=== PATIENT | female | born 1960 | race Caucasian/White ===

== ENCOUNTER 2021-04-16 13:42 | Outpatient (REF) | payer OTHER, SELFPAY ==
--- NOTE | ~2021-04-16 | XR_ITS ---
EXAMINATION: RIGHT AND LEFT ANKLE, RIGHT AND LEFT KNEE. CLINICAL INFORMATION: Pain COMPARISON: None TECHNIQUE: 3. Views of each ankle and 4 views of each knee FINDINGS: Right ankle: There is a large amount of edema seen within the lower leg and ankle. No acute fracture or dislocation is evident. Ankle mortise appears intact. No significant degenerative change. Calcaneal spurs sites of insertion of Achilles and plantar tendons evident. Left ankle: 3 views of the left ankle do not demonstrate any evidence of acute fracture or dislocation. Ankle mortise intact. Joint spaces maintained. Large amount of edema is seen about the lower leg and ankle. Plantar calcaneal spur is noted. Right knee: Views of the right knee do not demonstrate any evidence of acute fracture or dislocation. Joint spaces are maintained. No effusion is seen. There is minimal spurring undersurface of the patella. Left knee: There is no evidence of acute fracture or dislocation of the left knee. No left knee effusion. There is mild narrowing of the medial joint space compartment. XR/XR knee RT 4V IMPRESSION: Edematous change about the right and left lower leg and ankle without underlying bony abnormality. Calcaneal spurs. No significant bony abnormality of the right or left knee appreciated.
--- NOTE | ~2021-04-16 | XR_ITS ---
EXAMINATION: RIGHT AND LEFT ANKLE, RIGHT AND LEFT KNEE. CLINICAL INFORMATION: Pain COMPARISON: None TECHNIQUE: 3. Views of each ankle and 4 views of each knee FINDINGS: Right ankle: There is a large amount of edema seen within the lower leg and ankle. No acute fracture or dislocation is evident. Ankle mortise appears intact. No significant degenerative change. Calcaneal spurs sites of insertion of Achilles and plantar tendons evident. Left ankle: 3 views of the left ankle do not demonstrate any evidence of acute fracture or dislocation. Ankle mortise intact. Joint spaces maintained. Large amount of edema is seen about the lower leg and ankle. Plantar calcaneal spur is noted. Right knee: Views of the right knee do not demonstrate any evidence of acute fracture or dislocation. Joint spaces are maintained. No effusion is seen. There is minimal spurring undersurface of the patella. Left knee: There is no evidence of acute fracture or dislocation of the left knee. No left knee effusion. There is mild narrowing of the medial joint space compartment. XR/XR ankle LT min 3V IMPRESSION: Edematous change about the right and left lower leg and ankle without underlying bony abnormality. Calcaneal spurs. No significant bony abnormality of the right or left knee appreciated.
--- NOTE | ~2021-04-16 | XR_ITS ---
EXAMINATION: RIGHT AND LEFT ANKLE, RIGHT AND LEFT KNEE. CLINICAL INFORMATION: Pain COMPARISON: None TECHNIQUE: 3. Views of each ankle and 4 views of each knee FINDINGS: Right ankle: There is a large amount of edema seen within the lower leg and ankle. No acute fracture or dislocation is evident. Ankle mortise appears intact. No significant degenerative change. Calcaneal spurs sites of insertion of Achilles and plantar tendons evident. Left ankle: 3 views of the left ankle do not demonstrate any evidence of acute fracture or dislocation. Ankle mortise intact. Joint spaces maintained. Large amount of edema is seen about the lower leg and ankle. Plantar calcaneal spur is noted. Right knee: Views of the right knee do not demonstrate any evidence of acute fracture or dislocation. Joint spaces are maintained. No effusion is seen. There is minimal spurring undersurface of the patella. Left knee: There is no evidence of acute fracture or dislocation of the left knee. No left knee effusion. There is mild narrowing of the medial joint space compartment. XR/XR knee LT 4V IMPRESSION: Edematous change about the right and left lower leg and ankle without underlying bony abnormality. Calcaneal spurs. No significant bony abnormality of the right or left knee appreciated.
--- NOTE | ~2021-04-16 | XR_ITS ---
EXAMINATION: RIGHT AND LEFT ANKLE, RIGHT AND LEFT KNEE. CLINICAL INFORMATION: Pain COMPARISON: None TECHNIQUE: 3. Views of each ankle and 4 views of each knee FINDINGS: Right ankle: There is a large amount of edema seen within the lower leg and ankle. No acute fracture or dislocation is evident. Ankle mortise appears intact. No significant degenerative change. Calcaneal spurs sites of insertion of Achilles and plantar tendons evident. Left ankle: 3 views of the left ankle do not demonstrate any evidence of acute fracture or dislocation. Ankle mortise intact. Joint spaces maintained. Large amount of edema is seen about the lower leg and ankle. Plantar calcaneal spur is noted. Right knee: Views of the right knee do not demonstrate any evidence of acute fracture or dislocation. Joint spaces are maintained. No effusion is seen. There is minimal spurring undersurface of the patella. Left knee: There is no evidence of acute fracture or dislocation of the left knee. No left knee effusion. There is mild narrowing of the medial joint space compartment. XR/XR ankle RT min 3V IMPRESSION: Edematous change about the right and left lower leg and ankle without underlying bony abnormality. Calcaneal spurs. No significant bony abnormality of the right or left knee appreciated.
[2021-04-16 15:12] LABS: MANUAL DIFF FLAG NO
[2021-04-16 15:17] LABS: Basophils Absolute Auto 0.1 X10*3/uL (0.0-0.2); Basophils Percent Auto 1.3 % (0-2); Eosinophils Absolute Auto 0.2 X10*3/uL (0.0-0.4); Eosinophils Percent Auto 2.5 % (0-4); Hematocrit 41.7 % (37-47); Hemoglobin 13.7 g/dl (12.0-16.0); Imm Gran Abs Auto 0.04 X10*3/uL (0.00-0.03); Imm Gran Pct Auto 0.6 % (0.0-0.4); Lymphocytes Percent Auto 42.6 % (20-40); Mean Corpuscular HGB Conc 32.9 g/dl (31.0-35.0); Mean Corpuscular Hemoglobin 29.8 pg (27.0-33.0); Mean Corpuscular Volume 90.7 fL (80-98); Mean Platelet Volume 8.3 fL (9.4-12.3); Monocytes Absolute Auto 0.6 X10*3/uL (0.1-1.2); Monocytes Percent Auto 8.5 % (2-11); Neutrophils Absolute Auto 3.1 X10*3/uL (2.0-8.3); Neutrophils Percent Auto 44.5 % (45-73); Platelet Count 372 X10*3/uL (160-400); Red Cell Distribution Width 14.8 % (11.0-16.0); White Blood Count 6.9 X10*3/uL (4.8-10.8)
[2021-04-16 15:49] LABS: Alanine Aminotransferase 35 U/L (0-31); Albumin Level 4.2 g/dL (3.5-5.0); Alkaline Phosphatase 66 U/L (39-117); Anion Gap 12 (12-20); Aspartate Amino Transferase 27 U/L (5-31); Bilirubin Total 0.5 mg/dL (0.0-1.0); Blood Urea Nitrogen 20 mg/dL (9-16); C Reactive Protein 1.89 mg/dL (< or = 0.50); Calcium 10.3 mg/dL (8.4-10.2); Carbon Dioxide 29 mmol/L (22-29); Chloride 101 mmol/L (96-108); Estimated Glomerular Filt Rate > 60; Glucose Random 106 mg/dL (60-115); Potassium 3.9 mmol/L (3.3-5.1); Sodium 138 mmol/L (135-145); Total Protein 7.4 g/dL (6.5-8.0)
[2021-04-16 15:59] LABS: Rheumatoid Factor < 15.0 IU/mL (<15.0)
[2021-04-16 16:04] LABS: Erythrocyte Sedimentation Rate 14 MM/HR (0-20)
[2021-04-16 16:08] LABS: Thyroid Stimulating Hormone 1.21 uIU/mL (0.32-4.0)
[2021-04-17 13:32] LABS: Antibody to SS-A Antigen <1.0 NEG AI (<1.0 NEG); Antibody to SS-B Antigen <1.0 NEG AI (<1.0 NEG)
[2021-04-19 22:57] LABS: Cyclic Citrullinated Peptide <16 UNITS
[2021-04-26 12:26] LABS: Vitamin D 25-OH, D2 9 ng/mL; Vitamin D 25-OH, D3 22 ng/mL; Vitamin D 25-OH, Total 31 ng/mL (30-100)
== END 2021-04-16 13:43 | disposition home or self-care (01) ==
LOC: HO.XRAY 13:42
PROVIDERS: PCP Internal Medicine; Visit Provider Student in an Organized Health Care Education/Training Program
DX: M25.50 Pain in unspecified joint (principal)
CPT/HCPCS: 36415; 73564; 73610; 80053; 82306; 84443; 85025; 85652; 86140; 86200; 86235; 86431; 99202

== ENCOUNTER → 2021-05-29 09:12 | Outpatient (BNVA) | payer OTHER, SELFPAY | PROVIDERS: PCP Internal Medicine; Visit Provider Student in an Organized Health Care Education/Training Program | DX: M25.50 Pain in unspecified joint (principal); M77.31 Calcaneal spur, right foot; M77.32 Calcaneal spur, left foot | CPT/HCPCS: 99212 ==

== ENCOUNTER → 2021-05-30 11:10 | Outpatient (BNVA) | payer OTHER, SELFPAY | PROVIDERS: PCP Internal Medicine; Visit Provider Surgery Vascular Surgery | DX: I83.11 Varicose veins of right lower extremity with inflammation (principal) | CPT/HCPCS: 99202 ==

== ENCOUNTER 2021-06-24 10:37 | Outpatient (REF) | payer OTHER, SELFPAY ==
--- NOTE | ~2021-06-24 | US_ITS ---
EXAMINATION: EXAMINATION: RIGHT and LEFT LOWER EXTREMITY VENOUS ULTRASOUND (Reflux Exam) CLINICAL INDICATION: leg pain and varicose veins. COMPARISON: None. TECHNIQUE: Color flow triplex imaging and compression Doppler was performed to evaluate both the deep and the superficial systems bilaterally. To evaluate the superficial system, the examination was performed in the upright position. Color-flow Doppler ultrasound and compression ultrasound were utilized. In addition, maneuvers were utilized to demonstrate reflux. FINDINGS: 1. DEEP VENOUS ULTRASOUND OF THE RIGHT LOWER EXTREMITY: Respiratory variation, normal compression and augmented flow are noted in the right common femoral vein as well as the right popliteal vein and there is no evidence of deep venous thrombosis at these locations. There is no evidence of reflux in the deep system in either the common femoral vein or the popliteal vein. There is no evidence of a Ball's cyst. 2. SUPERFICIAL ULTRASOUND WITH DOPPLER OF RIGHT LOWER EXTREMITY: The right great saphenous vein at the saphenofemoral junction measures 6 mm, at the mid thigh 3 mm, [id number]-[id number] 3 mm, nphyf-lsw-anle 2 mm, at mid calf 2 mm and at the ankle measures 2 mm. There is 3.1 seconds reflux below the knee. The right small saphenous vein measures 2 mm and shows no reflux. There is a artificial snow making machine operator in the proximal calf that measures 2 mm and does not demonstrate reflux. There is a varicosity in the proximal thigh that measures 3 mm and does not demonstrate reflux. 3. DEEP VENOUS ULTRASOUND OF THE LEFT LOWER EXTREMITY: Respiratory variation, normal compression and augmented flow are noted in the left common femoral vein as well as the left popliteal vein and there is no evidence of deep venous thrombosis at these locations. There is no evidence of reflux in the deep system in either the common femoral vein or the popliteal vein. . There is no evidence of a Ball's cyst. 4. SUPERFICIAL ULTRASOUND WITH DOPPLER OF LEFT LOWER EXTREMITY: Left great saphenous vein at the saphenofemoral junction measures 5 mm, at the mid thigh 4 mm, vzxnl-yls-[id number] 3 mm, zeyqf-nru-ldfl 2 mm, at mid calf and 1 mm and at the ankle measures 1 mm. There is no reflux demonstrated in the left great saphenous vein. The left small saphenous vein is not seen. There is a artificial snow making machine operator in the proximal calf that measures 2 mm and does not demonstrate reflux. US/US venous duplex LE BI IMPRESSION: 1. No evidence of reflux or thrombus in the common femoral veins or popliteal veins bilaterally. 2. 3.1 seconds right greater saphenous vein reflux below the knee. No left greater saphenous vein reflux.
== END 2021-06-24 10:38 | disposition home or self-care (01) ==
LOC: HO.US 10:37
PROVIDERS: Visit Provider Surgery Vascular Surgery
DX: I83.11 Varicose veins of right lower extremity with inflammation (principal); I83.893 Varicose veins of bilateral lower extremities with other complications
CPT/HCPCS: 93970

== ENCOUNTER → 2021-06-27 15:16 | Outpatient (BNVA) | payer OTHER, SELFPAY | PROVIDERS: PCP Internal Medicine; Referring Provider Internal Medicine; Visit Provider Surgery Vascular Surgery | DX: I83.11 Varicose veins of right lower extremity with inflammation (principal) | CPT/HCPCS: 99212 ==

== ENCOUNTER 2021-07-18 11:57 | Emergency (ER) | payer OTHER, SELFPAY ==
[2021-07-18 11:59] VITALS: BP 110/74; PULSE 81; RESP 16; TEMP 36.9; O2SAT 98; BMI 38.7
--- NOTE | 2021-07-18 12:22 | ED_ITS ---
HPI - Female Genitourinary General Chief complaint: Urogenital-Female Stated complaint: blood in urine Time Seen by Provider: 07/18/21 12:05 Source: patient Mode of arrival: ambulatory Limitations: no limitations History of Present Illness HPI Narrative: 61 y/o female presenting with acute onset of blood in her urine and suprapubic pain that started today when she woke up. She has never had bloody urine before. She has no N/V/D, no fevers or flank pain. She reports burning and pain with urination. MD elicited complaint: dysuria and other (hematuria) Onset (ago): hour(s) Location of symptoms: suprapubic and urethra Severity: moderate Female Urogenital Radiation: Non-Radiating Quality of pain: burning Consistency: intermittent Vaginal discharge: none Vaginal bleeding: none Urinary symptoms: Dysuria and Hematuria Exacerbating factors: urination Relieving factors: none Associated symptoms: denies other symptoms Treatment prior to arrival: none Sexual activity: No Related Data Home Medications Medication Instructions Recorded Confirmed lisinopril 10 mg tablet 10 mg PO DAILY 04/16/21 05/29/21 chlorthalidone 25 mg tablet 25 mg PO DAILY 05/29/21 05/29/21 Previous Rx's Medication Instructions Recorded cefuroxime axetil 250 mg tablet 250 mg PO BID 7 Days #14 tab 07/18/21 Allergies Allergy/AdvReac Type Severity Reaction Status Date / Time No Known Allergies Allergy Verified 06/27/21 15:30 Review of Systems Constitutional: Constitutional: Denies body ache(s), Denies chills and Denies fever(s) Eyes: Eyes: Reports no additional eye complaints ENT: Reports Normal hearing present Cardiovascular: Cardiovascular: Denies chest pain Respiratory: Respiratory: Denies cough Gastrointestinal: Gastrointestinal: Reports abdominal pain, Denies nausea and Denies vomiting Genitourinary: Genitourinary: Denies abnormal vaginal bleeding, Reports hematuria, Reports dysuria, Denies flank pain and Reports urinary urgency Musculoskeletal: Musculoskeletal: Denies back pain Integumentary/Breasts: Skin/Breast: Denies rash Neurologic: Reports Normal hearing present [facility] Past Medical History Medical History Cataract fragments in eye following surgery HTN (hypertension) Migraine Osteoarthritis Surgical History Hx of section Hx of cholecystectomy Hx of tubal ligation Family History Family History Mother Diabetes Father Stroke Brother Diabetes Asthma Social History Social History Alcohol intake: never Patient Tobacco Use Status: Never used Tobacco Years Smoked: 10 e-Cigarette/Vaping Use: Never Used Advance Directives: No Advance Directives Information Provided: No Physical Exam Vital Signs: Vital Signs: Last Vital Signs Temp 98.4 F 07/18/21 11:59 Pulse 81 07/18/21 11:59 Resp 16 07/18/21 11:59 BP 110/74 07/18/21 11:59 Pulse Ox 98 07/18/21 11:59 Body Mass Index 38.7 Const: General: cooperative, healthy appearing, comfortable and no acute distress Nutritional Appearance: average body habitus Orientation/consciousness: patient oriented x3 Limitations: no limitations HENMT: Head: Yes normal to inspection Ears: hearing grossly normal bilaterally General nose exam: Normal external nose present Face and sinus: Yes normal facial exam and Yes face symmetric Mouth: Normal oral and palatal mucosa present, lip normal and tongue normal Eyes: General: appearance normal, both eyes and all related structures Neck: Neck: Yes normal visual inspection Chest: Chest palpation & inspection: normal inspection of the chest Resp: Effort & Inspection: normal respiratory effort and able to speak in complete sentences Auscultation: clear to auscultation bilaterally Cardio: Rate: regular rate Rhythm: regular rhythm Heart sounds: S1 normal heart sound present and S2 normal heart sound present GI: Inspection: Yes obesity Palpation (GI): Soft to palpation and Tenderness to palpation present (GI) suprapubicly (mild) Auscultation: normal bowel sounds : Other: pelvic deferred Skin: General skin exam: no rashes or lesions noted Neuro: General: patient oriented x3 and gait normal Cranial nerves: Yes Normal hearing present Extrem: General: Yes normal to inspection, Yes no pedal edema and Yes no calf tenderness Psych: Appearance: grossly normal and well kempt Mental Status: mental status grossly normal Speech and movement: Normal speech and movement present Course Course Course Narrative: 61 y/o female presenting with hematuria and suprapubic discomfort that started today. Her clinical presentation is consistent with UTI. No flank pain or systemic signs of infection. VS are normal. UA pending. Reevaluation(s) Reevaluation #1: UA is positive for infection. 1st dose of ceftin given here and then sent to pharmacy. Stable for d/c home with abx and outpatient follow up. MDM - Female Genitourinary Lab Data Labs: Lab Results 07/18/21 Range/Units 12:42 Urine Color PINK Urine Appearance CLOUDY Urine pH 7.0 (5.0-8.0) Ur Specific [place] 1.015 (1.005-1.025) Urine Protein 1+ H (NEG-TRACE) MG/DL Urine Glucose (UA) NEG (NEG) MG/DL Urine Ketones NEG (NEG) MG/DL Urine Blood 3+ H (NEG) Urine Nitrite NEG (NEG) Ur Leukocyte Esterase 1+ H (NEG) Urine RBC 76-150 H (0) /HPF Urine WBC 76-150 H (0-4) /HPF Ur Squamous Epith Cells TRACE /LPF Urine Bacteria 3+ /LPF Discharge Plan Discharge Clinical Impression: UTI (urinary tract infection) Qualifiers: Urinary tract infection type: acute cystitis Hematuria presence: with hematuria Qualified Code(s): N30.01 - Acute cystitis with hematuria Patient Disposition: Home, Self-Care Instructions: Urinary Tract Infection in Women (ED), Hematuria (ED) Additional Instructions: Your urine test showed infection. Take the prescribed antibiotic as directed. Start taking it tonight, you were given 1st dose today in the ER. Follow up with your doctor as needed. If you develop new or worsening symptoms call 911 or come back to the ER for further evaluation. Prescriptions: New cefuroxime axetil 250 mg tablet 250 mg PO BID 7 Days Qty: 14 RF: 0 No Action lisinopril 10 mg tablet 10 mg PO DAILY RF: 0 chlorthalidone 25 mg tablet 25 mg PO DAILY RF: 0 Referrals: Misty Ornelas MD [Primary Care Provider] - 1 week Interventions: ED Discharge Assessment Last Done: 07/18/21 13:45 Discharge Date/Time: 07/18/21 13:45
[2021-07-18 13:00] LABS: Glucose Urine UA NEG (NEG); Leukocyte Esterase Urine 1+ (NEG); Nitrite Urine NEG (NEG); Specific Gravity - Urine 1.015 (1.005-1.025); UACC Culture Trigger YES; Urine Blood 3+ (NEG); Urine Ketones NEG (NEG); Urine Protein 1+ MG/DL (NEG-TRACE)
[2021-07-18 13:08] LABS: Appearance Urine CLOUDY; Color Urine PINK
[2021-07-18 13:18] LABS: Bacteria Urine 3+ /LPF; Squamous Epithelial Cell Urine TRACE /LPF
== END 2021-07-18 13:45 | disposition home or self-care (01) ==
PROVIDERS: Physician Assistant; Emergency Provider Emergency Medicine; PCP Internal Medicine
DX: N30.01 Acute cystitis with hematuria (principal); I10 Essential (primary) hypertension
CPT/HCPCS: 81001; 81003; 87086; 87088; 87186; 99283; 99284

== ENCOUNTER 2022-01-15 12:30 | Outpatient (REF) | payer OTHER, SELFPAY ==
--- NOTE | ~2022-01-15 | MM_ITS ---
EXAMINATION: MM SCREENING DIGITAL BREAST TOMOSYNTHESIS, BILATERAL CLINICAL INFORMATION: Screening. Asymptomatic. The lifetime risk of breast cancer based on the Tyrer-Cuzick Model is 5.8%. COMPARISON: Mammography: November 25, 2017 and studies dating back to 2009 TECHNIQUE: Digital breast tomosynthesis is performed in both the craniocaudal and mediolateral oblique views along with computer-aided detection (CAD). Synthesized 2D images are generated from the tomosynthesis. FINDINGS: The breasts are almost entirely fatty (ACR BI-RADS breast composition Category a). There is stable parenchymal pattern of the right breast with no new abnormal dominant mass or suspicious grouping of microcalcifications. Within the anterior superior aspect of the left breast approximately 4 cm from the nipple there is a new 4 x 3 mm circumscribed density for which ultrasound evaluation is recommended. MM/MM tomosynthesis screening BI IMPRESSION: New right breast density for ultrasound evaluation. ASSESSMENT: BI-RADS 0: Incomplete - Need Additional Imaging Evaluation RECOMMENDATION: Targeted left breast ultrasound. Radiology department staff will contact the patient for additional imaging. .
== END 2022-01-15 12:31 | disposition home or self-care (01) ==
LOC: HO.MAMMO 12:30
PROVIDERS: PCP Internal Medicine; Visit Provider Internal Medicine
DX: Z12.31 Encounter for screening mammogram for malignant neoplasm of breast (principal)
CPT/HCPCS: 77063; 77067

== ENCOUNTER 2022-02-03 12:49 | Outpatient (REF) | payer OTHER, SELFPAY ==
--- NOTE | ~2022-02-03 | US_ITS ---
EXAMINATION: US DIAGNOSTIC ULTRASOUND BREAST, LEFT CLINICAL INFORMATION: Recall from screening for low-attenuation circumscribed nodule anterior 12:00 left breast under 5 mm. COMPARISON: Mammography 01/15/2022, outside mammography 11/25/2017 ([facility]). TECHNIQUE: Ultrasound left breast is targeted to the upper breast using grayscale imaging and color Doppler without and with harmonics. FINDINGS: Ultrasound demonstrates no cystic or suspicious solid nodule. There is no focal duct ectasia. No focal architectural abnormality. There is a subtle oval hyperechoic area 12:00 position anterior breast measuring just under 4 mm likely corresponding to the low-attenuation circumscribed nodule on mammography. There is no increased or decreased through transmission of sound. Finding appears to represent sequela from prior injury, likely focus of fat necrosis or early oil cyst. Results are discussed with the patient at time of visit, using an glost tile sorter. Patient does not recall prior injury left breast. The finding is benign-appearing likely focus of fat necrosis or early oil cyst. Management plan is for short interval six-month follow-up left mammography. Targeted ultrasound may be performed at same visit if warranted. US/US breast LT limited IMPRESSION: Subtle oval hyperechoic focus 12:00 position anterior breast likely corresponding to the low attenuation circumscribed nodule on mammography, suspicious for fat necrosis or early oil cyst. ASSESSMENT: BI-RADS 3: Probably Benign RECOMMENDATION: Diagnostic left mammography in 6 months. This patient's information was entered into a reminder system with a target due date for their next mammogram.
== END 2022-02-03 12:50 | disposition home or self-care (01) ==
LOC: HO.MAMMO 12:49
PROVIDERS: PCP Internal Medicine; Visit Provider Internal Medicine
DX: R92.2 Inconclusive mammogram (principal)
CPT/HCPCS: 76642

== ENCOUNTER 2022-09-30 08:57 | Outpatient (REF) | payer OTHER, SELFPAY ==
--- NOTE | ~2022-09-30 | MM_ITS ---
EXAMINATION: MM DIAGNOSTIC DIGITAL BREAST TOMOSYNTHESIS, BILATERAL CLINICAL INFORMATION: Asymptomatic. Follow-up small nodule anterior 12:30 left breast, likely oil cyst/fat necrosis. COMPARISON: Mammography: 01/15/2022, outside mammography 11/25/2017 ([facility]), left breast ultrasound 02/03/2022 TECHNIQUE: Digital breast tomosynthesis is performed in both the craniocaudal and mediolateral oblique views along with computer-aided detection (CAD). Synthesized 2D images are generated from the tomosynthesis. FINDINGS: The breasts are almost entirely fatty (ACR BI-RADS breast composition Category a). There are no significant masses, abnormal calcifications, or other abnormalities. Background stromal markings are stable. Small circumscribed nodule anterior left breast likely coil cyst/fat necrosis is stable. They will be reassessed again in 6 months. The remainder of the breasts show no developing density or architectural abnormality. No abnormal calcifications. The axilla are unremarkable. Results are provided to the patient at time of visit by the technologist. MM/MM tomosynthesis diagnostic BI IMPRESSION: -No mammographic evidence of malignancy. -Small benign-appearing nodule anterior 12:30 left breast likely oil cyst/fat necrosis, stable. ASSESSMENT: BI-RADS 3: Probably Benign RECOMMENDATION: Diagnostic left mammography in 6 months. This patient's information was entered into a reminder system with a target due date for their next mammogram.
== END 2022-09-30 08:58 | disposition home or self-care (01) ==
LOC: HO.MAMMO 08:57
PROVIDERS: Visit Provider Internal Medicine
DX: R92.2 Inconclusive mammogram (principal)
CPT/HCPCS: 77062; 77066

== ENCOUNTER → 2023-03-31 12:44 | Outpatient (BNV) | payer OTHER, SELFPAY | PROVIDERS: PCP Internal Medicine; Visit Provider Internal Medicine | DX: C92.10 Chronic myeloid leukemia, BCR/ABL-positive, not having achieved remission (principal); D64.9 Anemia, unspecified | CPT/HCPCS: 99204; 99214; 99215; G2211 ==

== ENCOUNTER 2023-04-01 15:15 | Outpatient (REF) | payer OTHER, SELFPAY ==
--- NOTE | ~2023-04-01 | MM_ITS ---
EXAMINATION: MM DIAGNOSTIC DIGITAL BREAST TOMOSYNTHESIS, LEFT CLINICAL INFORMATION: Short interval follow-up benign-appearing circumscribed nodule anterior 12:30 o'clock left breast, likely oil cyst/fat necrosis. TC score 6%. COMPARISON: Mammography: 09/30/2022, 01/15/2022 (BI-RADS 0), left breast ultrasound 02/03/2022; outside mammography 11/25/2017 ([facility] TECHNIQUE: Digital breast tomosynthesis is performed in both the craniocaudal and mediolateral oblique views along with computer-aided detection (CAD). Synthesized 2D images are generated from the tomosynthesis. FINDINGS: The breasts are almost entirely fatty (ACR BI-RADS breast composition Category a). The small circumscribed nodule anterior 12:30 left breast just under 5 mm appears stable from prior study. There is a benign punctate calcification at the rim. There is no developing density or interval architectural abnormality. The remainder left breast is unremarkable. Results are provided to the patient at time of visit by the technologist. The benign-appearing nodule will be reassessed again at time of annual bilateral mammography, due in 6 months. MM/MM tomosynthesis diagnostic LT IMPRESSION: -Stable small benign-appearing nodule anterior 12:30 left breast likely oil cyst/fat necrosis. ASSESSMENT: BI-RADS 3: Probably Benign RECOMMENDATION: Diagnostic mammography at time of annual bilateral exam, due in 6 months. This patient's information was entered into a reminder system with a target due date for their next mammogram.
== END 2023-04-01 15:16 | disposition home or self-care (01) ==
LOC: HO.MAMMO 15:15
PROVIDERS: PCP Internal Medicine; Visit Provider Internal Medicine
DX: N63.25 Unspecified lump in the left breast, overlapping quadrants (principal)
CPT/HCPCS: 77061; 77065

== ENCOUNTER 2023-04-15 09:09 | Outpatient (REF) | payer OTHER, SELFPAY ==
--- NOTE | ~2023-04-15 | US_ITS ---
EXAMINATION: US ABDOMEN COMPLETE CLINICAL INFORMATION: Question hepatosplenomegaly. COMPARISON: Ultrasound abdomen complete 04/30/2020. TECHNIQUE: Real-time imaging of the abdominal viscera. FINDINGS: PANCREAS: The pancreas appears unremarkable, without masses or ductal dilatation, with the exception of the tail which is obscured by bowel gas. ABDOMINAL AORTA: The proximal, mid, and distal segments are normal in caliber. INFERIOR VENA CAVA: Visualized portions are normal. LIVER: The liver is normal in size. The liver contour is normal. There is diffuse increased liver parenchymal echogenicity, consistent with hepatic steatosis. No focal hepatic lesion. There is no intrahepatic biliary duct dilatation seen. GALLBLADDER: Surgically absent. COMMON BILE DUCT: Normal in caliber measuring 1.4 cm in diameter. RIGHT KIDNEY: A 1.1 cm benign renal cyst is present which needs no additional imaging or follow-up. No solid renal masses. No hydronephrosis or renal calculi. The kidney measures 11.4 cm in maximum dimension. LEFT KIDNEY: Normal. No hydronephrosis. No renal calculi or focal parenchymal lesions. The kidney measures 10.5 cm in maximum dimension. SPLEEN: Normal. The spleen measures 9.0 cm in maximum dimension. FREE FLUID: None. US/US abdomen complete IMPRESSION: Hepatic steatosis.
== END 2023-04-15 09:10 | disposition home or self-care (01) ==
LOC: HO.US 09:09
PROVIDERS: PCP Internal Medicine; Visit Provider Internal Medicine
DX: D75.839 Thrombocytosis, unspecified (principal)
CPT/HCPCS: 36415; 76700; 88374

== ENCOUNTER 2023-04-29 09:34 | Outpatient (REF) | payer OTHER, SELFPAY | END 2023-04-29 09:35 | disposition home or self-care (01) | LOC: HO.LAB 09:34 | PROVIDERS: PCP Internal Medicine; Visit Provider Internal Medicine | DX: Z13.89 Encounter for screening for other disorder (principal) ==

== ENCOUNTER 2023-05-21 09:38 | Day surgery (SDC) | payer OTHER, SELFPAY ==
[2023-05-21] VITALS (8 sets, daily range): BP systolic 133–175; BP diastolic 71–82; PULSE 63–76; RESP 14–19; TEMP 36.1–36.8; O2SAT 96–98; BMI 38.6
--- NOTE | ~2023-05-21 | CT_ITS ---
PROCEDURE: CT GUIDED BIOPSY CLINICAL INFORMATION: CML. COMPARISON: None available. TECHNIQUE: Following explaining CT-guided iliac crest bone marrow biopsy procedure, benefits and risk via a nail professional a written consent was obtained. Patient was placed prone and preliminary CT imaging was obtained through pelvis. Marker was placed about the left buttock and repeat CT imaging was obtained. An optimal marker was selected and marked on the skin. Marked site was cleaned in usual sterile manner with 2% chlorhexidine solution. 1% lidocaine was administered at puncture site. Through a small skin incision a 14-gauge needle was advanced from the skin to the level of periosteum of the left iliac crest. A mechanical drill was then attached to the needle and the needle was advanced into the bone marrow. Two needles with EDTA and heparin was attached to the syringe and blood was aspirated. Subsequently a coaxial 16-gauge needle was advanced and a bone marrow core biopsy was performed. Postprocedure stylet was reintroduced and the guide needle was withdrawn. Complete hemostasis was achieved at puncture site. Patient tolerated procedure extremely well. Conscious sedation was utilized during the exam and patient was monitored by IR nurse. This CT examination was performed using dose optimization techniques as appropriate, variously including the following: *Automated exposure control *Adjustment of mA and/or kV according to patient size (this includes techniques or standardized protocols for targeted exams where dose is matched to indication/reason for exam; i.e. extremities or head) *Use of iterative reconstruction technique DLP: 254 mGy-cm FINDINGS: On preliminary CT imaging of the pelvis there is scattered stool seen in the colon without significant distention. The uterus appears unremarkable. No free air or free fluid seen. The soft tissues are unremarkable. CT-guided 2 bone marrow aspirations with EDTA and heparin in syringe were obtained. Subsequently a single core biopsy was performed coaxially. CT/CT biopsy bone marrow IMPRESSION: Successful CT fluoroscopy-guided bone marrow aspiration and core biopsy performed through the left iliac bone marrow.
[2023-05-21 10:12] LABS: Hematocrit 40.3 % (37.0-47.0); Hemoglobin 13.3 g/dl (12.0-16.0); Mean Corpuscular Hemoglobin 28.2 pg (27.0-33.0); Mean Corpuscular Volume 85.4 fL (80.0-98.0); Mean Platelet Volume 8.6 fL (9.4-12.3); Platelet Count 792 X10*3/uL (160-400); Red Blood Count 4.72 X10*6/uL (4.20-5.50); Red Cell Distribution Width 17.2 % (11.0-16.0)
[2023-05-21 10:17] LABS: Prothrombin Time 11.3 SEC (10.0-13.1)
[2023-05-21 10:19] LABS: Partial Thromboplastin Time 31.9 SEC (26.0-36.4)
[2023-05-21 10:36] LABS: Atypical Lymph Absolute Manual 0.2 x10*3/uL; Atypical Lymphs Percent Manual 1 % (0-6); Band Neutrophils Percent 5 % (3-5); Basophils Abs Manual 1.1 X10*3/uL (0.0-0.2); Basophils Percent Manual 6 % (0-2); Eosinophils Absolute Manual 0.8 X10*3/uL (0.0-0.4); Eosinophils Percent Manual 4 % (0-4); Lymphocytes Absolute Manual 3.4 X10*3/uL (1.2-4.9); Lymphocytes Percent Manual 18 % (20-40); Metamyelocytes Absolute 0.8 X10*3/uL; Metamyelocytes Percent 4 %; Monocytes Absolute Manual 0.8 X10*3/uL (0.1-1.2); Monocytes Percent Manual 4 % (2-11); Neutrophils Percent Manual 58 % (45-73); Platelet Estimate INCREASED (NORMAL); Platelet Morphology Comment NORMAL; RBC Morphology NORMAL
[2023-05-21 12:22] LABS: Bone Marrow SEE SEPARATE REPORT
== END 2023-05-21 14:08 | disposition home or self-care (01) ==
PROVIDERS: Radiology Diagnostic Radiology; PCP Internal Medicine; Visit Provider Internal Medicine
PROC: (CPT 38221; principal; 2023-05-21 11:30)
DX: C92.10 Chronic myeloid leukemia, BCR/ABL-positive, not having achieved remission (principal)
CPT/HCPCS: 36415; 38221; 38222; 85007; 85027; 85610; 85730; 88184; 88185; 88237; 88264; 88305; 88311; 88313; 99152; 99153; J1642; J2250; J3010

== ENCOUNTER → 2023-06-08 14:53 | Outpatient (BNV) | payer OTHER, SELFPAY | PROVIDERS: PCP Internal Medicine; Visit Provider Internal Medicine Cardiovascular Disease | DX: Z51.11 Encounter for antineoplastic chemotherapy (principal) | CPT/HCPCS: 93010 ==

== ENCOUNTER → 2023-07-21 08:53 | Outpatient (REF) | payer OTHER, SELFPAY ==
--- NOTE | 2023-07-21 08:56 | CA_ITS ---
Transthoracic Echocardiogram Patient (Last, First, Middle): Emiliana Pedraza, Gender: Female Date of : 1960 Age: 63 Procedure Date: 07/21/2023 Procedure Type: Transthoracic Echocardiogram Location: OP Height: 165.1 cm Weight: 107.05 kg BSA: 2.12 m2 Heart Rate: bpm BP: 135 / 70 mmHg Animal Care Supervisor: DIYA Referring MD: Jannette Pérez MD Symptoms: pre-chemo eval Study Quality: Adequate ECG Rhythm: Sinus Conclusions: - The left ventricular systolic function is normal. The calculated ejection fraction is 68% by biplane method. - No obvious valvular pathology seen on this study. Findings Left Ventricle Normal left ventricular cavity size. There is normal left ventricular wall thickness. The left ventricular systolic function is normal. The calculated ejection fraction is 68% by biplane method. There is no evidence of regional wall motion abnormalities. Diastolic function is normal for age. Right Ventricle Normal right ventricular cavity size and systolic function. Atria Both atria are normal in size. Aortic Valve There is a normal trileaflet aortic valve. There is no aortic valve stenosis. There is no aortic valve regurgitation. Mitral Valve The mitral valve appears normal. There is trace mitral valve regurgitation. There is no mitral valve stenosis. Pulmonic Valve The pulmonic valve is likely normal. Tricuspid Valve Normal tricuspid valve structure. There is trace tricuspid valve regurgitation. There is no evidence of pulmonary hypertension. Great Vessels The asc aorta is normal in size. Venous The inferior vena cava is normal in size and collapses greater than 50% with inspiration. Pericardium/Pleural There is no evidence of pericardial effusion. Prior Study Comparison No prior study available for comparison. Recommendations, Care & Conclusions No obvious valvular pathology seen on this study. Measurements 2D Linear Measurements IVSd: 1.06 0.6-0.9/0.6-1.0 cm LVIDd: 4.54 3.9-5.3/4.2-5.9 cm LVIDd Index: 2.14 2.4-3.2/2.2-3.1 cm/m2 LVIDs: 2.33 2.0-3.6 cm LVPWd: 0.94 0.7-1.1 cm LA Diam: 2.90 2.7-3.8/3.0-4.0 cm LAIDs Index: 1.37 1.5-2.3 cm/m2 LV Mass: 193.20 67-162/88-224 g LV Mass Index: 91.13 43-95/49-115 g/m2 LVOT Diam: 1.80 3.0+(-)1.3 cm 2D Systolic Function EF 4C: 68.30 >55% EF 2C: 63.80 >55% EF BiP: 67.50 >55% Mitral Valve MV Pk E: 1.02 MV PK A: 0.94 MV Decel Time: 232.00 E/A: 1.10 E'Lateral: 9.68 E'Medial: 8.81 E/E' Med: 11.60 E/E' Lat: 10.50 PHT: 68.00 MVA PHT: 3.24 Decel [place]: 4.37 Aortic Valve AoV Pk [place]: 1.83 AoV Mn [place]: 1.24 AoV VTI: 0.37 AoV Pk Grad: 13.00 Aov Mn Grad: 7.00 SOHA Cont.VTI: 2.22 LVOT LVOT Pk [place]: 1.45 LVOT Mn [place]: 1.01 LVOT VTI: 0.32 LVOT Pk Grad: 8.00 LVOT Mn Grad: 5.00 LVOT Diam: 1.80 LVOT Area: 2.54 Diastolic Function MV Pk E: 1.02 MV Pk A: 0.94 E/A: 1.10 E'Medial: 8.81 E/E' Med: 11.60 E' Laterial: 9.68 E/E' Lat: 10.50 Right Ventricle TAPSE (mm): 22.60 TVS' [place]: 12.30 Tricuspid Valve TR Pk [place]: 2.57 TR Pk Grad: 26.00 RA Press: 3.00 RVSP: 29.00 Great Vessels Aorta Sinus of Valsalva: 3.30 2.0-3.5 cm Ao Asc: 3.20 2.1-3.4 cm Pulmonary Valve PV Pk [place]: 1.28 Peak PV Grad: 7.00 Updated in Other Vendor System with Status of Final Endy Swan MD electronically signed on 07/21/2023 2:58:31 PM with status of Final
== END ==
LOC: HO.CARD 08:53
PROVIDERS: Visit Provider Internal Medicine
DX: C92.10 Chronic myeloid leukemia, BCR/ABL-positive, not having achieved remission (principal)
CPT/HCPCS: 93306

== ENCOUNTER → 2023-07-21 08:56 | Outpatient (BNV) | payer OTHER, SELFPAY | PROVIDERS: Visit Provider Internal Medicine | DX: Z01.818 Encounter for other preprocedural examination (principal); C92.10 Chronic myeloid leukemia, BCR/ABL-positive, not having achieved remission | CPT/HCPCS: 93306 ==

== ENCOUNTER 2023-08-18 10:47 | Outpatient (REF) | payer OTHER, SELFPAY | END 2023-08-18 10:48 | disposition home or self-care (01) | LOC: HO.LAB 10:47 | PROVIDERS: Visit Provider Internal Medicine | DX: R19.7 Diarrhea, unspecified (principal) | CPT/HCPCS: 87177; 87209 ==

== ENCOUNTER → 2023-09-23 10:37 | Outpatient (BNVA) | payer OTHER, SELFPAY | PROVIDERS: Visit Provider Nurse Practitioner ==

== ENCOUNTER 2023-10-07 09:23 | Outpatient (REF) | payer OTHER, SELFPAY ==
--- NOTE | ~2023-10-07 | MM_ITS ---
EXAMINATION: MM DIAGNOSTIC DIGITAL BREAST TOMOSYNTHESIS, BILATERAL CLINICAL INFORMATION: The patient presents for recommended short interval follow-up of a left breast focal asymmetry and screening mammography of the right breast. COMPARISON: Mammography: This study is compared with prior mammograms dating back to 2018. TECHNIQUE: Digital breast tomosynthesis is performed in both the craniocaudal and mediolateral oblique views along with computer-aided detection (CAD). Synthesized 2D images are generated from the tomosynthesis. FINDINGS: The breasts are almost entirely fatty (ACR BI-RADS breast composition Category a). There are no significant masses, abnormal calcifications, or other abnormalities either breast. The previously noted area of upper outer quadrant focal asymmetry represents a small intramammary lymph node. There is no calcification associated with it. There is possible for calcifications to dissolve in the breast. Nonetheless, there are no mammographic signs of malignancy. MM/MM tomosynthesis diagnostic BI IMPRESSION: There are no significant changes from prior study. ASSESSMENT: BI-RADS BI-RADS 1 - Negative RECOMMENDATION: 1 year F/U Results were provided to the patient at time of visit by the technologist. This patient's information was entered into a reminder system with a target due date for their next mammogram.
== END 2023-10-07 09:24 | disposition home or self-care (01) ==
LOC: HO.MAMMO 09:23
PROVIDERS: PCP Internal Medicine; Visit Provider Internal Medicine
DX: N64.89 Other specified disorders of breast (principal)
CPT/HCPCS: 77062; 77066

== ENCOUNTER → 2023-10-07 09:30 | Outpatient (BNV) | payer OTHER, SELFPAY | PROVIDERS: PCP Internal Medicine; Visit Provider Radiology Diagnostic Radiology | DX: N64.89 Other specified disorders of breast (principal) | CPT/HCPCS: 77062; 77066 ==

== ENCOUNTER 2023-10-27 12:59 | Outpatient (AMB) | payer OTHER, SELFPAY ==
--- NOTE | 2023-10-27 13:03 | A.OFFVIS_ITS ---
Intake Vital Signs 10/27/23 13:04 Height 5 ft 5 in Weight 231 lb 0.711 oz BMI 38.4 BP 140/61 H Blood Pressure Location Lt brachial Position Sitting Pulse 71 Intake Visit Reasons: Colonoscopy Screening Intake Note: Patient presents to in office visit today as a new patient for colonoscopy screening. CC: Patient reports [place] [facility] [place]. She reports she suffers form GERD, abdominal pain, constipation, and occasional bloating. Patient reports she was diagnosed with Leukemia and has been taking Sprycel 100 mg daily. 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 female with past medical hi story of polyarthritis, varicose veins, leukemia is here today for pre colonoscopy screening.? Patient was sent to us by her PCP.? Patient has been receiving oral treatment of chemotherapy agent of dasatinib for leukemia. Patient has been treated for the past 8 months or so. Patient denies any gastrointestinal symptoms in the past or at present.? Denies any personal or family history of gastrointestinal diseas e, colon polyps, or cancer.? Patient reports that she had colonoscopy at [facility] about 5 years ago and was diagnosed with diverticulosis. Patient reports that she did not have polyps. Will get records from [facility]. Patient reports occasional acid reflux. Reports postprandial abdominal bloating sometimes constipation and sometimes loose stools. Patient denies any melena, hematochezia, unintentional weight loss or ribbon like stools. Patient was told that she cannot take any medications to help her with her acid reflux due to contraindication of her chemotherapy agent. Denies history of difficulty with sedation or anesthesia in the past.? Negative for history of sleep apnea.? Denies any history of cardiac, renal, pulmonary, or hepatic disease.?? No history of infectious? diseases like hepatitis A, B, C, HIV or tuberculosis.? Patient is not on any anticoagulation therapy. [facility] Medical History Cataract fragments in eye following surgery Migraine HTN (hypertension) Osteoarthritis Surgical History H/O colonoscopy Hx of tubal ligation Hx of cholecystectomy Hx of section Family History Mother Diabetes Father Stroke Brother Diabetes Asthma Brother Prostate cancer Social History Household Members: None Housing: Apartment Alcohol intake: never Patient Tobacco Use Status: Never used Tobacco Years Smoked: 10 e-Cigarette/Vaping Use: Never Used service: No Current occupational status: unemployed Review of Systems Const Denies weight gain and Denies weight loss ENT Reports no additional complaints, Denies dysphagia and Denies odynophagia Card Reports no additional complaints Resp Reports no additional complaints GI Denies abdominal pain, Denies belching, Denies melena, Reports bloating, Denies change in bowel habits, Reports constipation, Denies dysphagia, Denies excessive flatus, Denies dyspepsia, Reports heartburn (Occasional), Denies diarrhea, Reports loose stools, Denies nausea, Denies odynophagia and Denies vomiting Reports no additional complaints Musc Reports no additional complaints Neuro Reports no additional complaints Psych Reports no additional complaints Endo Reports no additional complaints Physical Exam Vital Signs: Last Vital Signs Pulse 71 10/27/23 13:04 BP 140/61 H 10/27/23 13:04 BMI result Body Mass Index 38.4 Const General: healthy appearing, no acute distress and well developed Nutritional Appearance: obese Orientation/consciousness: patient oriented x3 HEENT Head: Yes normal to inspection, Yes normocephalic and Yes atraumatic Face and sinus: Yes normal facial exam Mouth: Normal oral and palatal mucosa present Throat: Yes posterior oropharynx normal, Yes tonsils normal and Yes uvula midline Eyes General: appearance normal, both eyes and all related structures Neck Neck: Yes normal visual inspection, Yes full ROM and Yes trachea midline Thyroid: Thyroid normal Resp Effort & Inspection: normal respiratory effort, able to speak in complete sentences, no tracheal deviation and symmetric chest movement Auscultation: clear to auscultation bilaterally Cardio Rate: regular rate GI Inspection: Yes normal to inspection, No distended and Yes obesity Palpation (GI): Soft to palpation, not firm, nontender and No hepatosplenomegaly present Auscultation: normal bowel sounds General: Yes no CVA tenderness Back/Spine/Pelvis Back: no CVA tenderness Skin General skin exam: elasticity normal, turgor normal and dry skin Neuro General: patient oriented x3 Psych Appearance: grossly normal Mental Status: mental status grossly normal Affect: normal affect Assessment & Plan Assessment & Plan (1) Screen for colon cancer: Code(s): Z12.11 - Encounter for screening for malignant neoplasm of colon Plan: ? (2) Postprandial abdominal bloating: Code(s): R14.0 - Abdominal distension (gaseous) (3) GERD (gastroesophageal reflux disease): Code(s): K21.9 - Gastro-esophageal reflux disease without esophagitis Qualifiers: Esophagitis presence: esophagitis presence not specified Qualified Code(s): K21.9 - Gastro-esophageal reflux disease without esophagitis (4) IBS (irritable bowel syndrome): Code(s): K58.9 - Irritable bowel syndrome without diarrhea Qualifiers: Irritable bowel syndrome type: with both diarrhea and constipation Qualified Code(s): K58.2 - Mixed irritable bowel syndrome Plan Patient denies any cardiac or respiratory symptoms.? Patient reports occasional epigastric pain with dyspepsia without dysphagia or odynophagia. Unable to take medications due to possible side effects to help with acid reflux. When reviewed interactions PPIs were not on the list of food drug interactions, however H2 blockers were not recommended as well as Zofran. Discussed with patient avoiding dietary triggers. Discussed with her low FODMAP diet. List of food recommended as well as list of food to avoid given to patient. Patient denies any issues with anesthesia in the past.? Denies any history of sleep apnea.? No history infectious diseases in the past or present.? Not on any anticoagulation therapy.? No family or personal history of colon cancer or polyps.? Patient reports colonoscopy about 5 years ago or so at [facility] and diverticulosis found. Patient reports he had no polyps. Will get records from [facility] and evaluate. Patient denies melena, hematochezia, unintentional weight loss or ribbon like stools. Patient will return to the office in 5 weeks, sooner on as needed basis. Please check with patient's oncologist to see if patient can go for the procedure and if she can start PPI therapy for her symptoms. Might need to send patient for upper endoscopy as well to ensure appropriate treatment Coding Level of Care Code New Pt Level 4 (57413) Diagnoses Screen for colon cancer Z12.11 Postprandial abdominal bloating R14.0 Gastroesophageal reflux disease, unspecified whether esophagitis present K21.9 Esophagitis presence: esophagitis presence not specified Irritable bowel syndrome with both constipation and diarrhea K58.2 Irritable bowel syndrome type: with both diarrhea and constipation Time Spent (min) 45 Comment 30 minutes spent with patient and additional 15 minutes spent reviewing her records
[2023-10-27 13:04] VITALS: BP 140/61; PULSE 71; BMI 38.4
== END 2023-10-27 13:57 | disposition home or self-care (01) ==
PROVIDERS: PCP Internal Medicine; Visit Provider Nurse Practitioner Family
DX: R14.0 Abdominal distension (gaseous) (principal); K21.9 Gastro-esophageal reflux disease without esophagitis; K58.2 Mixed irritable bowel syndrome
CPT/HCPCS: 99204

== ENCOUNTER → 2023-10-27 12:59 | Outpatient (BNVA) | payer OTHER, SELFPAY | PROVIDERS: PCP Internal Medicine; Visit Provider Nurse Practitioner | DX: Z12.11 Encounter for screening for malignant neoplasm of colon (principal); K21.9 Gastro-esophageal reflux disease without esophagitis; K58.2 Mixed irritable bowel syndrome; R14.0 Abdominal distension (gaseous) | CPT/HCPCS: 99202 ==

== ENCOUNTER 2023-12-07 09:19 | Outpatient (AMB) | payer OTHER, SELFPAY ==
[2023-12-07 09:23] VITALS: BP 115/60; PULSE 62; BMI 38.6
--- NOTE | 2023-12-07 09:23 | A.OFFVIS_ITS ---
Intake Vital Signs 12/07/23 09:23 Height 5 ft 5 in Weight 232 lb BMI 38.6 BP 115/60 Blood Pressure Location Lt brachial Position Sitting Pulse 62 Intake Visit Reasons: 5 week f/u (r/s'd) Intake Note: Patient presents to in office visit today in follow up to re-discuss colonoscopy. CC: Patient reports symptoms continue to be the same. She continues to have GERD, abdominal bloating, and occasional constipation. 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 Postprandial abdominal bloating GERD (gastroesophageal reflux disease) IBS (irritable bowel syndrome) Plan Patient denies any cardiac or respiratory symptoms.? Patient reports occasional epigastric pain with dyspepsia without dysphagia or odynophagia. Unable to take medications due to possible side effects to help with acid reflux. When reviewed interactions PPIs were not on the list of food drug interactions, however H2 blockers were not recommended as well as Zofran. Discussed with patient avoiding dietary triggers. Discussed with her low FODMAP diet. List of food recommended as well as list of food to avoid given to patient. Patient denies any issues with anesthesia in the past.? Denies any history of sleep apnea.? No history infectious diseases in the past or present.? Not on any anticoagulation therapy .? No family or personal history of colon cancer or polyps.? Patient reports colonoscopy about 5 years ago or so at [facility] and diverticulosis found. Patient reports he had no polyps. Will get records from [facility] and evaluate. Patient denies melena, hematochezia, unintentional weight loss or ribbon like stools. Patient will return to the office in 5 weeks, sooner on as needed basis. Please check with patient's oncologist to see if patient can go for the procedure and if she can start PPI therapy for her symptoms. Might need to send patient for upper endoscopy as well to ensure appropriate treatment TODAY'S VISIT Patient is here today for follow-up. Patient is accompanied by her son who is translating for us per patient's request. Patient continues to have acid reflux at times. Patient continues with her oncology treatment, followed by oncologist. Unable to prescribe her any PPI at this moment. Patient will be able to go for endoscopy. Patient will need to stop taking dasatinib 1 week before procedure due to risk of bleeding. Patient reports that she has not moving her bowels well. Constipated no BM for 3 days. When she does have a bowel movement she does not feel like she empties her bowels completely. Patient denies any nausea or vomiting. Patient denies any issues with anesthesia in the past. No history of sleep apnea. [facility] Medical History Cataract fragments in eye following surgery Migraine HTN (hypertension) Osteoarthritis Surgical History H/O colonoscopy Hx of tubal ligation Hx of cholecystectomy Hx of section Family History Mother Diabetes Father Stroke Brother Diabetes Asthma Brother Prostate cancer Social History Household Members: None Housing: Apartment Alcohol intake: never Patient Tobacco Use Status: Never used Tobacco Years Smoked: 10 e-Cigarette/Vaping Use: Never Used service: No Current occupational status: unemployed Review of Systems Const Denies weight gain and Denies weight loss ENT Reports no additional complaints, Denies dysphagia and Denies odynophagia Card Reports no additional complaints Resp Reports no additional complaints GI Denies abdominal pain, Denies belching, Denies melena, Denies bloating, Denies change in bowel habits, Reports constipation, Denies dysphagia, Denies excessive flatus, Denies dyspepsia, Reports heartburn, Denies diarrhea, Denies loose stools, Denies nausea, Denies odynophagia and Denies vomiting Reports no additional complaints Musc Reports no additional complaints Neuro Reports no additional complaints Psych Reports no additional complaints Endo Reports no additional complaints Physical Exam Vital Signs: Last Vital Signs Pulse 62 12/07/23 09:23 BP 115/60 12/07/23 09:23 BMI result Body Mass Index 38.6 Const General: healthy appearing, no acute distress and well developed Nutritional Appearance: well nourished Orientation/consciousness: patient oriented x3 Resp Effort & Inspection: normal respiratory effort, able to speak in complete sentences, no tracheal deviation and symmetric chest movement Auscultation: clear to auscultation bilaterally Cardio Rate: regular rate GI Inspection: Yes normal to inspection and No distended Palpation (GI): Soft to palpation, not firm, nontender and No hepatosplenomegaly present Auscultation: normal bowel sounds General: Yes no CVA tenderness Back/Spine/Pelvis Back: no CVA tenderness Skin General skin exam: elasticity normal, turgor normal and dry skin Neuro General: patient oriented x3 Psych Appearance: grossly normal Mental Status: mental status grossly normal Assessment & Plan Assessment & Plan (1) Screen for colon cancer: Code(s): Z12.11 - Encounter for screening for malignant neoplasm of colon (2) Postprandial abdominal bloating: Code(s): R14.0 - Abdominal distension (gaseous) (3) GERD (gastroesophageal reflux disease): Code(s): K21.9 - Gastro-esophageal reflux disease without esophagitis Qualifiers: Esophagitis presence: esophagitis presence not specified Qualified Code(s): K21.9 - Gastro-esophageal reflux disease without esophagitis (4) IBS (irritable bowel syndrome): Code(s): K58.9 - Irritable bowel syndrome without diarrhea Qualifiers: Irritable bowel syndrome type: without diarrhea Qualified Code(s): K58.9 - Irritable bowel syndrome without diarrhea Plan Patient will continue avoiding dietary triggers and late night snacking. Staying upright for minimal 3 hours after meals discussed with patient. Patient will be sent for upper endoscopy to rule out gastritis, esophagitis, duodenitis, gastric or peptic ulcers, Green's, H pylori. What to expect before during and after upper endoscopy and colonoscopy discussed with patient. Stressed the im portance of good bowel prep and clear liquid diet day before procedure. Patient will need to stop dasatinib 1 week before procedure as recommended by her oncologist to prevent bleeding. Patient denies any issues with anesthesia in the past. I will see patient 3 weeks before the procedure to go over the prep again and making sure that patient is moving her bowels better. Patient will be starting taking bisacodyl 2 tablets at bedtime. Patient will call if she will continue to be constipated. Patient is agreeable to this plan and verbalizes understanding of instructions. She was given the opportunity to ask questions and all questions answered. Medications: New bisacodyl (Dulcolax (bisacodyl)) 10 mg (2 x 5 mg) PO BEDTIME 180 tabs 4RF polyethylene glycol 3350 (Miralax) As directed by gastroenterology department at [facility] 238 grams PO ONCE 238 grams 0RF Z12.11 - Encounter for screening for malignant neoplasm of colon Coding Level of Care Code Est Pt Level 4 (80865) Diagnoses Screen for colon cancer Z12.11 Postprandial abdominal bloating R14.0 Gastroesophageal reflux disease, unspecified whether esophagitis present K21.9 Esophagitis presence: esophagitis presence not specified Irritable bowel syndrome without diarrhea K58.9 Irritable bowel syndrome type: without diarrhea Time Spent (min) 35 Comment 20 minutes spent with patient and additional 15 minutes spent reviewing her records
== END 2023-12-07 09:46 | disposition home or self-care (01) ==
PROVIDERS: PCP Internal Medicine; Visit Provider Nurse Practitioner Family
DX: K58.9 Irritable bowel syndrome, unspecified (principal); K21.9 Gastro-esophageal reflux disease without esophagitis; Z12.11 Encounter for screening for malignant neoplasm of colon
CPT/HCPCS: 99214

== ENCOUNTER → 2023-12-07 09:19 | Outpatient (BNVA) | payer OTHER, SELFPAY | PROVIDERS: PCP Internal Medicine; Visit Provider Nurse Practitioner Family | DX: Z12.11 Encounter for screening for malignant neoplasm of colon (principal); R14.0 Abdominal distension (gaseous); K21.9 Gastro-esophageal reflux disease without esophagitis; K58.9 Irritable bowel syndrome, unspecified | CPT/HCPCS: 99212 ==

== ENCOUNTER 2024-01-18 11:18 | Outpatient (REF) | payer OTHER, SELFPAY ==
--- NOTE | ~2024-01-18 | XR_ITS ---
EXAMINATION: CHEST AND RIGHT KNEE. CLINICAL INDICATION: Cough more than of the. Chronic right knee pain. COMPARISON: Right knee 04/16/2021 TECHNIQUE: Chest 2 views. Right knee 2 views. FINDINGS: CHEST: The lungs are well-expanded and clear. Heart size and pulmonary vascularity is normal. No gross bony abnormality seen. 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 No visible acute fracture, dislocation or subluxation seen. No joint effusion or soft tissue swelling. XR/XR chest 2V IMPRESSION: Unremarkable chest exam. Since the last exam there is total right knee arthroplasty with prosthetic components in satisfactory alignment. No abnormality seen of the right knee.
--- NOTE | ~2024-01-18 | XR_ITS ---
EXAMINATION: CHEST AND RIGHT KNEE. CLINICAL INDICATION: Cough more than of the. Chronic right knee pain. COMPARISON: Right knee 04/16/2021 TECHNIQUE: Chest 2 views. Right knee 2 views. FINDINGS: CHEST: The lungs are well-expanded and clear. Heart size and pulmonary vascularity is normal. No gross bony abnormality seen. 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 No visible acute fracture, dislocation or subluxation seen. No joint effusion or soft tissue swelling. XR/XR knee RT 2V IMPRESSION: Unremarkable chest exam. Since the last exam there is total right knee arthroplasty with prosthetic components in satisfactory alignment. No abnormality seen of the right knee.
== END 2024-01-18 11:19 | disposition home or self-care (01) ==
LOC: HO.HHCX 11:18
PROVIDERS: Visit Provider Internal Medicine
DX: M25.561 Pain in right knee (principal); G89.29 Other chronic pain; R05.9 Cough, unspecified; R30.0 Dysuria
CPT/HCPCS: 71046; 73560; 87086

== ENCOUNTER 2024-03-08 15:02 | Outpatient (REF) | payer OTHER, SELFPAY ==
[2024-03-08 16:17] LABS: Basophils Absolute Auto 0.1 X10*3/uL (0.0-0.2); Basophils Percent Auto 0.7 % (0-2); Eosinophils Absolute Auto 0.5 X10*3/uL (0.0-0.4); Eosinophils Percent Auto 5.6 % (0-4); Hematocrit 33.3 % (37.0-47.0); Hemoglobin 10.8 g/dl (12.0-16.0); Imm Gran Abs Auto 0.02 X10*3/uL (0.00-0.03); Imm Gran Pct Auto 0.2 % (0.0-0.4); Lymphocytes Absolute Auto 5.5 X10*3/uL (1.2-4.9); Lymphocytes Percent Auto 63.4 % (20-40); MANUAL DIFF FLAG SCAN; Mean Corpuscular HGB Conc 32.4 g/dl (31.0-35.0); Mean Corpuscular Hemoglobin 30.9 pg (27.0-33.0); Mean Corpuscular Volume 95.1 fL (80.0-98.0); Monocytes Absolute Auto 0.7 X10*3/uL (0.1-1.2); Monocytes Percent Auto 8.5 % (2-11); Neutrophils Absolute Auto 1.9 x10*3/uL (2.0-8.3); Neutrophils Percent Auto 21.6 % (45-73); Platelet Count 246 X10*3/uL (160-400); Red Cell Distribution Width 15.1 % (11.0-16.0); SCAN SMEAR FLAG 1; White Blood Count 8.7 X10*3/uL (4.8-10.8)
[2024-03-08 16:45] LABS: SLIDE REVIEW VERIFIED
[2024-03-08 16:49] LABS: Anion Gap 10 (12-20); Blood Urea Nitrogen 17 mg/dL (9-16); Calcium 9.7 mg/dL (8.4-10.2); Carbon Dioxide 28 mmol/L (22-29); Chloride 104 mmol/L (96-108); Estimated Glomerular Filt Rate 59; Glucose Random 89 mg/dL (60-115); Potassium 3.6 mmol/L (3.3-5.1); Sodium 138 mmol/L (135-145)
== END 2024-03-08 15:03 | disposition home or self-care (01) ==
LOC: HO.HHCL 15:02
PROVIDERS: Visit Provider Internal Medicine
DX: R50.9 Fever, unspecified (principal); K92.1 Melena
CPT/HCPCS: 36415; 80048; 85025; 87086

== ENCOUNTER → 2024-03-14 08:43 | Outpatient (BNVA) | payer OTHER, SELFPAY | PROVIDERS: PCP Internal Medicine; Visit Provider Nurse Practitioner Family ==

== ENCOUNTER 2024-03-28 11:26 | Day surgery (SDC) | payer OTHER, SELFPAY ==
--- NOTE | 2024-03-25 12:27 | HO.ANESPROP2 ---
Documented by User: Quyen Contreras NP 03/25/24 12:30 HPI - Anesthesia Eval Consult details Narrative: 63yo F for Upper Endoscopy and Colonoscopy CML with chemo PMFSH Active Problems Active Problems: All Active Problems CML (chronic myelocytic leukemia) (Chronic) Varicose veins of right lower extremity with inflammation (Acute) Bilateral calcaneal spurs (Acute) Polyarthralgia (Acute) Past Medical History Medical History CML (chronic myelocytic leukemia) Cataract fragments in eye following surgery Migraine HTN (hypertension) Osteoarthritis Family History Family History Mother Diabetes Father Stroke Brother Diabetes Asthma Brother Prostate cancer Surgical History Surgical History H/O colonoscopy Hx of tubal ligation Hx of cholecystectomy Hx of section Social History Social History Household Members: None Housing: Apartment Alcohol intake: never Patient Tobacco Use Status: Never used Tobacco Years Smoked: 10 e-Cigarette/Vaping Use: Never Used Are you DNR?: No Advance Directives: No Advance Directives Information Provided: Yes Nutrition Risks: No Nutritional Risk service: No Current occupational status: unemployed Meds Allergies Allergy/AdvReac Type Severity Reaction Status Date / Time Seasonal Allergies Allergy Intermediate Watery Eye Verified 03/28/24 12:26 Home Medications ?Medication ?Instructions ?Recorded ?Confirmed ?Last Taken ?Type losartan 50 mg tablet 50 mg PO DAILY 03/12/23 03/28/24 Unknown History carvedilol 12.5 mg tablet 12.5 mg PO BID 10/27/23 03/28/24 Unknown History chlorthalidone 50 mg tablet 50 mg PO DAILY 10/27/23 03/28/24 Unknown History Exam Pertinent Lab Results Pertinent Lab Results: Laboratory Tests 03/08/24 15:07 WBC 8.7 Hgb 10.8 L Hct 33.3 L Plt Count 246 D Sodium 138 Potassium 3.6 Chloride 104 Carbon Dioxide 28 BUN 17 H Creatinine 0.95 Narrative Narrative: ECHO 2022 (Pre-chemo) Conclusions: - The left ventricular systolic function is normal. The calculated ejection fraction is 68% by biplane method. - No obvious valvular pathology seen on this study. Assessment and Plan Assessment Anesthesia Assessment: Chart Reviewed Documented by User: Di Vuong MD 03/28/24 12:51 PMFSH Past Medical History Medical History CML (chronic myelocytic leukemia) Cataract fragments in eye following surgery Migraine HTN (hypertension) Osteoarthritis Family History Family History Mother Diabetes Father Stroke Brother Diabetes Asthma Brother Prostate cancer Family history of problems with anesthesia: No Surgical History Surgical History H/O colonoscopy Hx of tubal ligation Hx of cholecystectomy Hx of section History of Problems with Anesthesia: No Social History Social History Household Members: None Housing: Apartment Alcohol intake: never Patient Tobacco Use Status: Never used Tobacco Years Smoked: 10 e-Cigarette/Vaping Use: Never Used Are you DNR?: No Advance Directives: No Advance Directives Information Provided: Yes Nutrition Risks: No Nutritional Risk service: No Current occupational status: unemployed Meds Allergies Allergy/AdvReac Type Severity Reaction Status Date / Time Seasonal Allergies Allergy Intermediate Watery Eye Verified 03/28/24 12:26 Home Medications ?Medication ?Instructions ?Recorded ?Confirmed ?Last Taken ?Type losartan 50 mg tablet 50 mg PO DAILY 03/12/23 03/28/24 Unknown History carvedilol 12.5 mg tablet 12.5 mg PO BID 10/27/23 03/28/24 Unknown History chlorthalidone 50 mg tablet 50 mg PO DAILY 10/27/23 03/28/24 Unknown History Exam Airway Mallampati Class: II TM Dist: >3cm Neck ROM: Full Heart: rrr Lungs: cta Assessment and Plan Assessment Anesthesia Assessment: Anesthesia Plan Discussed Final Anesthetic Review Family History of Problems with Anesthesia: No History of Problems with Anesthesia: No NPO: Yes ASA Class: II Final Preanesthetic Review: No Changes in Pt Med Stat, Meds/Allgs Chart Reviewed and Consent Obtained/Reviewed Patient Risk: Low Procedure Risk: Intermediate Anesthetic Plan Anesthetic Plan: MAC: Disposition: Standard PACU
[2024-03-28 12:01] VITALS: BMI 38.8
[2024-03-28] MEDS: Lactated Ringers 1,000 ML 100 ML IVCONT (12:13)
[2024-03-28 12:23] VITALS: BP 174/75; PULSE 62; RESP 18; TEMP 36.7; O2SAT 98
[2024-03-28 12:38] VITALS: BP 158/74
--- NOTE | 2024-03-28 12:44 | MHC.SHP ---
Pre-Procedural Eval Section A - 24 Hr Update-Section A only Date of Service: 03/28/24 The patient is an INPATIENT: No Changes since office visit: Yes Patient answered all questions; No Cold of Flu in the past 2 weeks, No New Medical Problems and No Changes in Medication The patient has been examined within 24 hours of the surgical procedure. The History & Physical has been completed within 30 days and I have reviewed it.: Yes Section B - Complete if H&P > 30 days Chief Complaint: Colon cancer screening, abdominal pain Allergies: Allergies Allergy/AdvReac Type Severity Reaction Status Date / Time Seasonal Allergies Allergy Intermediate Watery Eye Verified 03/28/24 12:26 Plan Diagnosis/Plan: Unchanged I have reviewed the history and physical and performed a pertinent physical examination on my patient. No changes have occurred unless specified. Time Spent With Patient Time: Total time managing care of this patient today ____ minutes.
--- NOTE | 2024-03-28 12:57 | HO.OPN-COLON ---
Colonoscopy Operative Note Operative Note Date of Service: 03/28/24 Narrative: FLEXIBLE TRANSORAL UPPER GASTROINTESTINAL ENDOSCOPY WITH BIOPSIES AND COLONOSCOPY TILL CECUM WITH BIOPSIES AND SNARE POLYPECTOMY, SUBMUCOSAL INJECTION AND HEMOCLIP PLACEMENT Pre-op diagnosis: Colon cancer screening, GERD Post-op diagnosis: Gastritis, Colon Polyps, Diverticulosis, hemorrhoids Endoscopist:? Heidi Rios MD Anesthesia:?MAC UPPER ENDOSCOPY Consent: Indications for the procedure and potential complications of bleeding, perforation, reaction to medications and missed diagnosis were discussed with the patient and informed consent was obtained. Instrument: Olympus GIF H 190 mid size upper endoscope Monitoring: Vital signs and clinical assessment, continuous EKG monitoring, Pulse oximetry, Carbon Dioxide monitoring and blood pressure monitoring were done throughout the procedure. Procedure: The patient was placed in the left lateral decubitis position and pre-procedure medications were administered and a bite block was placed. The endoscope was inserted into the mouth and advanced under direct vision to the third part of duodenum. A careful inspection was made as the upper endoscope was withdrawn including a retroflexed examination of the proximal stomach; Findings and interventions are described below. Findings: Larynx: Normal Esophagus: GE junction at 35 cms. No esophagitis or Green's. Stomach: Moderate antral erythema with a few 8-10 mm benign appearing pre-pyloric nodules with central erosions - biopsies were obtained. Grade 2 flap valve on retroflexed examination of the cardia. Duodenum: Normal bulb and descending duodenum Biopsies were obtained from descending duodenum to check for celiac sprue Intervention: Biopsies as noted above COLONOSCOPY PROCEDURE NOTE Instrument: Olympus PCF H 190 L variable stiffness pediatric colonoscope Monitoring: Vital signs and clinical assessment, intermittent blood pressure monitoring, continuous EKG monitoring, Pulse oximetry and Carbon Dioxide monitoring were done throughout the procedure. Please see anesthesia flowsheet. Colon withdrawl time was 40 minutes. Procedure: The patient was placed in the left lateral decubitis position and pre-procedure medications were administered. After a digital rectal examination of the ano-rectum, the video colonoscope was inserted into the rectum and advanced through the colon to the cecum. The colonoscope was slowly withdrawn in a retrograde panoramic fashion and the colon mucosa was carefully examined including a retroflexed view of the rectum. Findings and interventions are described below. Procedure Difficulty: Colon was long and tortuous and there was recurrent formation. Patient was placed in the supine position left lower quadrant pressure was applied to intubate the cecum Findings: Terminal Ileum: Not evaluated Cecum: Normal Ascending Colon: Normal Transverse Colon: A 12-15 mm sessile polyp - removed with a hot snare in the proximal transverse colon (hepatic flexure). A 7-8 mm sessile polyp -removed with hot snare. A 2 cms sessile polyp at 100 cms - removed with a hot snare. Polypectomy site was closed with 2 hemoclips and marked by Padmaja ink. A 7-8 mm sessile polyp removed with a cold snare Descending Colon: A 10-12 mm sessile polyp - removed with a hot snare. Moderate diverticulosis Sigmoid Colon: A 12-15 mm sessile polyp - removed with a hot snare. Severe diverticulosis with luminal narrowing Rectum: Normal Ano-rectum: Moderate internal hemorrhoids Colon preparation: Good after some irrigation. [place] Bowel Preparation Scale Right colon; 2 Transverse colon: 2 Left colon; 2 (0 = Unprepared colon segment with mucosa not seen due to solid stool that cannot be cleared. 1 = Portion of mucosa of the colon segment seen, but other areas of the colon segment not well seen due to staining, residual stool and/or opaque liquid. 2 = Minor amount of residual staining, small fragments of stool and/or opaque liquid, but mucosa of colon segment seen well. 3 = Entire mucosa of colon segment seen well with no residual staining, small fragments of stool or opaque liquid) Impression and Post Procedure Diagnosis: Endoscopy Findings: STOMACH: Moderate antral erythema with a few 8-10 mm benign appearing pre-pyloric nodules with central erosions - biopsies were obtained. DUODENUM: Normal - biopsied to check for celiac sprue Colonoscopy Findings: Two small and four medium sized polyps were removed Moderate to severe diverticulosis seen in the left colon Moderate hemorrhoids on retroflexed exam. Plan: Pt to schedule a FU appointment with Teresita Isbell to discuss biopsy results Repeat Colonoscopy in 1-2 years if polyps are adenomatous and 10 year if polyps are hyperplastic. Above findings were reviewed with the patient and relevant handouts were given and the discharge area. BIOPSIES SHOWED: A. Small bowel, biopsy: Small bowel mucosa within normal limits; preserved villous architecture and no increased intraepithelial lymphocytes seen. B. Stomach, antrum, biopsy: Gastric antral mucosa with moderate chronic active gastritis and numerous Helicobacter pylori organisms; negative for intestinal metaplasia and dysplasia. C. Colon, transverse polyp, biopsy: Inflammatory polyp. D. Colon, transverse, polyps #2, biopsy: Tubular adenoma (1); negative for high-grade dysplasia. E. Colon, right side, biopsy: Colonic mucosa within normal limits; negative for active, chronic or microscopic colitis. F. Colon, transverse, polyp at 100 cm, biopsy: Inflammatory polyp. G. Colon, descending, polyp, biopsy: Inflammatory polyp. H. Colon, sigmoid, polypectomy: Inflammatory polyp. I. Colon, left side, biopsy: Colonic mucosa within normal limits; negative for active, chronic or microscopic colitis.
[2024-03-28 14:14] VITALS: BP 118/68; PULSE 60; RESP 16; TEMP 36.9; O2SAT 96
[2024-03-28 14:29] VITALS: BP 128/71; PULSE 53; RESP 16; O2SAT 100
[2024-03-28 14:44] VITALS: BP 147/76; PULSE 54; RESP 16; TEMP 36.4; O2SAT 99
== END 2024-03-28 15:48 | disposition home or self-care (01) ==
PROVIDERS: PCP Internal Medicine; Visit Provider Internal Medicine Gastroenterology
PROC: (CPT 45385; principal; 2024-03-28 13:50)
DX: Z12.11 Encounter for screening for malignant neoplasm of colon (principal); D12.3 Benign neoplasm of transverse colon; K51.40 Inflammatory polyps of colon without complications; K63.89 Other specified diseases of intestine; K57.30 Diverticulosis of large intestine without perforation or abscess without bleeding; K64.8 Other hemorrhoids; K21.9 Gastro-esophageal reflux disease without esophagitis; K29.70 Gastritis, unspecified, without bleeding; B96.81 Helicobacter pylori [H. pylori] as the cause of diseases classified elsewhere; I10 Essential (primary) hypertension
CPT/HCPCS: 45385; 45381; 43239; 88305; 88313; 88342; J2704

== ENCOUNTER → 2024-03-28 11:26 | Outpatient (BNV) | payer OTHER, SELFPAY | PROVIDERS: PCP Internal Medicine; Visit Provider Internal Medicine Gastroenterology | DX: Z12.11 Encounter for screening for malignant neoplasm of colon (principal); D12.3 Benign neoplasm of transverse colon; K57.90 Diverticulosis of intestine, part unspecified, without perforation or abscess without bleeding; K64.8 Other hemorrhoids; K21.9 Gastro-esophageal reflux disease without esophagitis; K29.70 Gastritis, unspecified, without bleeding | CPT/HCPCS: 43239; 45381; 45385 ==

== ENCOUNTER → 2024-04-26 09:29 | Outpatient (BNVA) | payer OTHER, SELFPAY | PROVIDERS: PCP Internal Medicine; Visit Provider Nurse Practitioner Family | DX: K57.30 Diverticulosis of large intestine without perforation or abscess without bleeding (principal); A04.8 Other specified bacterial intestinal infections; D12.6 Benign neoplasm of colon, unspecified; K21.9 Gastro-esophageal reflux disease without esophagitis; K58.9 Irritable bowel syndrome, unspecified; Z98.890 Other specified postprocedural states | CPT/HCPCS: 99212 ==

== ENCOUNTER 2024-04-26 09:36 | Outpatient (AMB) | payer OTHER, SELFPAY ==
--- NOTE | 2024-04-26 09:32 | MHC.OFFVIS ---
Vital Signs 04/26/24 09:37 04/26/24 09:55 Height 5 ft 5 in Weight 231 lb 14.821 oz BMI 38.6 BP 142/90 H Blood Pressure Location Lt brachial Position Sitting Pulse Source Pulse Oximeter Pulse Oximetry (%) 99 Oxygen Delivery Method Room Air Intake Visit Reasons: follow up Intake Note: VANESSA Townsend [id number] Emiliana presents in office today for a FUV. CC; Pt presents for the purpose of inquiring regarding their colo and egd scrn results. Pt still reporting LUQ pain (5/10). Pt states that it is primarily noticeable still while eating. Pt also reports that she has found she is still passing a lot of gas. Rag Production Worker Required: Yes Rag Production Worker Name: Vanessa Townsend [id number] Allergies Seasonal Allergies Allergy (Intermediate, Verified 04/26/24 09:41) Watery Eye HPI HPI follow up: Details: LAST VISIT: Screen for colon cancer Postprandial abdominal bloating GERD (gastroesophageal reflux disease) IBS (irritable bowel syndrome) Plan What to expect before during and after procedure discussed with patient. Clear liquid diet and good bowel prep day before procedure discussed with patient. Patient denies any cardiac or respiratory symptoms. Patient will hold dasatinib 1 week before procedure. I will see her after the procedure, sooner on as needed basis. Patient is agreeable to this plan and verbalizes understanding of instructions. She was given the opportunity to ask questions and all questions answered. ? Thank you for allowing me to participate in her care UPPER ENDOSCOPY AND COLONOSCOPY: Findings: Larynx: Normal Esophagus: GE junction at 35 cms. No esophagitis or Green's. Stomach: Moderate antral erythema with a few 8-10 mm benign appearing pre-pyloric nodules with central erosions - biopsies were obtained. Grade 2 flap valve on retroflexed examination of the cardia. Duodenum: Normal bulb and descending duodenum Biopsies were obtained from descending duodenum to check for celiac sprue Intervention: Biopsies as noted above COLONOSCOPY PROCEDURE NOTE Instrument: Olympus PCF H 190 L variable stiffness pediatric colonoscope Monitoring: Vital signs and clinical assessment, intermittent blood pressure monitoring, continuous EKG monitoring, Pulse oximetry and Carbon Dioxide monitoring were done throughout the procedure. Please see anesthesia flowsheet. Colon withdrawl time was 40 minutes. Procedure: The patient was placed in the left lateral decubitis position and pre-procedure medications were administered. After a digital rectal examination of the ano-rectum, the video colonoscope was inserted into the rectum and advanced through the colon to the cecum. The colonoscope was slowly withdrawn in a retrograde panoramic fashion and the colon mucosa was carefully examined including a retroflexed view of the rectum. Findings and interventions are described below. Procedure Difficulty: Colon was long and tortuous and there was recurrent formation. Patient was placed in the supine position left lower quadrant pressure was applied to intubate the cecum Findings: Terminal Ileum: Not evaluated Cecum: Normal Ascending Colon: Normal Transverse Colon: A 12-15 mm sessile polyp - removed with a hot snare in the proximal transverse colon (hepatic flexure). A 7-8 mm sessile polyp -removed with hot snare. A 2 cms sessile polyp at 100 cms - removed with a hot snare. Polypectomy site was closed with 2 hemoclips and marked by Padmaja ink. A 7-8 mm sessile polyp removed with a cold snare Descending Colon: A 10-12 mm sessile polyp - removed with a hot snare. Moderate diverticulosis Sigmoid Colon: A 12-15 mm sessile polyp - removed with a hot snare. Severe diverticulosis with luminal narrowing Rectum: Normal Ano-rectum: Moderate internal hemorrhoids Colon preparation: Good after some irrigation. [place] Bowel Preparation Scale Right colon; 2 Transverse colon: 2 Left colon; 2 (0 = Unprepared colon segment with mucosa not seen due to solid stool that cannot be cleared. 1 = Portion of mucosa of the colon segment seen, but other areas of the colon segment not well seen due to staining, residual stool and/or opaque liquid. 2 = Minor amount of residual staining, small fragments of stool and/or opaque liquid, but mucosa of colon segment seen well. 3 = Entire mucosa of colon segment seen well with no residual staining, small fragments of stool or opaque liquid) Impression and Post Procedure Diagnosis: Endoscopy Findings: STOMACH: Moderate antral erythema with a few 8-10 mm benign appearing pre-pyloric nodules with central erosions - biopsies were obtained. DUODENUM: Normal - biopsied to check for celiac sprue Colonoscopy Findings: Two small and four medium sized polyps were removed Moderate to severe diverticulosis seen in the left colon Moderate hemorrhoids on retroflexed exam. Plan: Repeat Colonoscopy in 1-2 years if polyps are adenomatous and 10 year if polyps are hyperplastic. Above findings were reviewed with the patient and relevant handouts were given and the discharge area. BIOPSIES SHOWED: A. Small bowel, biopsy: Small bowel mucosa within normal limits; preserved villous architecture and no increased intraepithelial lymphocytes seen. B. Stomach, antrum, biopsy: Gastric antral mucosa with moderate chronic active gastritis and numerous Helicobacter pylori organisms; negative for intestinal metaplasia and dysplasia. C. Colon, transverse polyp, biopsy: Inflammatory polyp. D. Colon, transverse, polyps #2, biopsy: Tubular adenoma (1); negative for high-grade dysplasia. E. Colon, right side, biopsy: Colonic mucosa within normal limits; negative for active, chronic or microscopic colitis. F. Colon, transverse, polyp at 100 cm, biopsy: Inflammatory polyp. G. Colon, descending, polyp, biopsy: Inflammatory polyp. H. Colon, sigmoid, polypectomy: Inflammatory polyp. I. Colon, left side, biopsy: Colonic mucosa within normal limits; negative for active, chronic or microscopic colitis. TODAY'S VISIT: Patient is here today for follow-up and to discuss upper endoscopy and colonoscopy results. Patient denies any ill effects from the prep, anesthesia or procedure itself. Denies melena, hematochezia. Patient continues to have epigastric pain postprandially. Patient reports that sometimes for pain is there almost all the time. Patient reports epigastric discomfort even when she is drinking water. Patient reports postprandial abdominal bloating. Diagnosed with H pylori and moderate chronic active gastritis. Patient currently is not on any PPI. Patient is taking chemotherapy and taking PPI would lower the absorption of her medication. Will send a message to her oncologist to see if she can do treatment for 2 weeks along with antibiotics to help eradicating the bacteria. Patient continues to have postprandial abdominal bloating, feeling gassy. Patient reports left upper quadrant pain, crampy like pain that does not radiate anywhere. Does admit that she is not moving her bowels well. Small bowel movements and every couple days. [facility] Medical History (Updated 04/26/24 @ 10:45 by Princess Isbell [facility]-) Tubular adenoma of colon Helicobacter pylori (H. pylori) Abnormal endoscopy of upper gastrointestinal tract CML (chronic myelocytic leukemia) Cataract fragments in eye following surgery Migraine HTN (hypertension) Osteoarthritis Surgical History H/O colonoscopy Hx of tubal ligation Hx of cholecystectomy Hx of section Family History Mother Diabetes Father Stroke Brother Diabetes Asthma Brother Prostate cancer Social History Household Members: None Housing: Apartment Alcohol intake: never Patient Tobacco Use Status: Never used Tobacco Years Smoked: 10 e-Cigarette/Vaping Use: Never Used service: No Current occupational status: unemployed Review of Systems Const Denies weight gain and Denies weight loss ENT Reports no additional complaints, Denies dysphagia and Denies odynophagia Card Reports no additional complaints Resp Reports no additional complaints GI Reports abdominal pain (Epigastric), Denies belching, Denies melena, Reports bloating, Denies change in bowel habits, Denies dysphagia, Reports excessive flatus, Reports dyspepsia, Reports heartburn, Denies diarrhea, Denies loose stools, Denies nausea, Denies odynophagia and Denies vomiting Reports no additional complaints Musc Reports no additional complaints Neuro Reports no additional complaints Psych Reports no additional complaints Endo Reports no additional complaints Physical Exam Vital Signs: Last Vital Signs BP 142/90 H 04/26/24 09:55 Pulse Ox 99 04/26/24 09:37 Oxygen Delivery Method Room Air 04/26/24 09:37 BMI result Body Mass Index 38.6 Const General: healthy appearing and no acute distress Nutritional Appearance: obese Orientation/consciousness: patient oriented x3 Resp Effort & Inspection: normal respiratory effort, able to speak in complete sentences, no tracheal deviation and symmetric chest movement Auscultation: clear to auscultation bilaterally Cardio Rate: regular rate GI Inspection: Yes normal to inspection, No distended and Yes obesity Palpation (GI): Soft to palpation, not firm, nontender and No hepatosplenomegaly present Auscultation: normal bowel sounds General: Yes no CVA tenderness Back/Spine/Pelvis Back: no CVA tenderness Skin General skin exam: elasticity normal, turgor normal and dry skin Neuro General: patient oriented x3 Psych Appearance: grossly normal Mental Status: mental status grossly normal Assessment & Plan Assessment & Plan (1) Helicobacter pylori (H. pylori): Code(s): A04.8 - Other specified bacterial intestinal infections Category: Medical (2) Tubular adenoma of colon: Code(s): D12.6 - Benign neoplasm of colon, unspecified Category: Medical (3) Postprandial abdominal bloating: Code(s): R14.0 - Abdominal distension (gaseous) (4) GERD (gastroesophageal reflux disease): Code(s): K21.9 - Gastro-esophageal reflux disease without esophagitis Qualifiers: Esophagitis presence: esophagitis presence not specified Qualified Code(s): K21.9 - Gastro-esophageal reflux disease without esophagitis (5) IBS (irritable bowel syndrome): Code(s): K58.9 - Irritable bowel syndrome without diarrhea Qualifiers: Irritable bowel syndrome type: without diarrhea Qualified Code(s): K58.9 - Irritable bowel syndrome without diarrhea (6) Status post colonoscopy: Code(s): Z98.890 - Other specified postprocedural states Plan Patient is on chemotherapy medication and we will try to place her on PPI for 2 weeks just to eradicate bacteria along with metronidazole and tetracycline. Patient will take her chemotherapy medication before 07:00 and will take PPI 2-3 hours later just before eating meal with antibiotics. Patient will be given nausea medicine to help if she will have trouble tolerating the treatment. The importance of finishing all of her treatment was stressed with patient. We will need to retest for eradication of the bacteria. We can continue treating had with H2 junior instead of PPI. Patient will start taking senna to help her evacuate her bowels. Increase fluid intake and activity to promote better bowel motility. Avoid dietary triggers and late night snacking. Staying upright for minimum 3 hours after meals discussed with patient. I will see her in 2 months, sooner on as needed basis. Patient is agreeable to this plan and verbalizes understanding of instructions. She was given the opportunity to ask questions and all questions answered. Thank you for allowing me to participate in her care Medications: New bismuth subsalicylate 2 tabs PO QID 112 tabs 0RF 14 days A04.8 - Other specified bacterial intestinal infections metronidazole 1,000 mg (2 x 500 mg) PO BID 56 tabs 0RF A04.8 - Other specified bacterial intestinal infections tetracycline 1,000 mg (2 x 500 mg) PO Q12H 56 caps 0RF A04.8 - Other specified bacterial intestinal infections omeprazole 20 mg PO BID 28 caps 0RF 14 days A04.8 - Other specified bacterial intestinal infections, K21.9 - Gastro-esophageal reflux disease without esophagitis ondansetron 4 mg PO Q8H PRN 20 tabs 0RF nausea and vomiting R11.0 - Nausea sennosides (Natural Senna Laxative) 17.2 mg (2 x 8.6 mg) PO BEDTIME 60 tabs 3RF constipation K59.00 - Constipation, unspecified Coding Level of Care Code Est Pt Level 4 (85830) Diagnoses Helicobacter pylori (H. pylori) A04.8 Tubular adenoma of colon D12.6 Postprandial abdominal bloating R14.0 Gastroesophageal reflux disease, unspecified whether esophagitis present K21.9 Esophagitis presence: esophagitis presence not specified Irritable bowel syndrome without diarrhea K58.9 Irritable bowel syndrome type: without diarrhea Status post colonoscopy Z98.890 Time Spent (min) 40 Comment 25 minutes spent with patient and additional 15 minutes spent reviewing her records
[2024-04-26 09:37] VITALS: O2SAT 99; BMI 38.6
[2024-04-26 09:55] VITALS: BP 142/90
== END 2024-04-26 10:33 | disposition home or self-care (01) ==
PROVIDERS: PCP Internal Medicine; Visit Provider Nurse Practitioner Family
DX: A04.8 Other specified bacterial intestinal infections (principal); D12.6 Benign neoplasm of colon, unspecified; R14.0 Abdominal distension (gaseous); K21.9 Gastro-esophageal reflux disease without esophagitis; K58.9 Irritable bowel syndrome, unspecified; Z98.890 Other specified postprocedural states
CPT/HCPCS: 99214

== ENCOUNTER 2024-05-04 19:29 | Emergency (ER) | payer OTHER, SELFPAY ==
--- NOTE | ~2024-05-04 | XR_ITS ---
EXAMINATION: XR CHEST 2 VIEWS CLINICAL INFORMATION: Fever. COMPARISON: Chest radiographs dated 01/18/2024. TECHNIQUE: Frontal and lateral views of the chest were obtained. FINDINGS: The heart, great vessels, pulmonary vasculature and mediastinum are normal. The lungs show no focal infiltrate, effusion or pneumothorax. There is no acute osseous abnormality. XR/XR chest 2V IMPRESSION: No active cardiopulmonary disease.
[2024-05-04 20:52] VITALS: BP 167/78; PULSE 92; RESP 18; TEMP 38; O2SAT 94; BMI 35.9
--- NOTE | 2024-05-04 20:58 | ECG_ITS ---
Test Reason : DIZZINESS Blood Pressure : / mmHG Vent. Rate : 084 BPM Atrial Rate : 084 BPM P-R Int : 176 ms QRS Dur : 084 ms QT Int : 340 ms P-R-T Axes : 031 023 019 degrees QTc Int : 401 ms Normal sinus rhythm Normal ECG When compared with ECG of 08-JUN-2023 14:59, No significant change was found Referred By: Generic ED Physician Electronically Signed By:SUSI MORENO
[2024-05-04 21:17] LABS: Basophils Percent Auto 0.5 % (0-2); Eosinophils Absolute Auto 0.4 X10*3/uL (0.0-0.4); Eosinophils Percent Auto 8.7 % (0-4); Hematocrit 33.6 % (37.0-47.0); Hemoglobin 11.5 g/dl (12.0-16.0); Imm Gran Abs Auto 0.01 X10*3/uL (0.00-0.03); Imm Gran Pct Auto 0.2 % (0.0-0.4); Lymphocytes Absolute Auto 0.8 X10*3/uL (1.2-4.9); Lymphocytes Percent Auto 19.9 % (20-40); MANUAL DIFF FLAG SCAN; Mean Corpuscular HGB Conc 34.2 g/dl (31.0-35.0); Mean Corpuscular Hemoglobin 31.8 pg (27.0-33.0); Mean Corpuscular Volume 92.8 fL (80.0-98.0); Mean Platelet Volume 7.8 fL (9.4-12.3); Monocytes Absolute Auto 0.9 X10*3/uL (0.1-1.2); Monocytes Percent Auto 23.1 % (2-11); Neutrophils Absolute Auto 1.9 x10*3/uL (2.0-8.3); Neutrophils Percent Auto 47.6 % (45-73); Platelet Count 261 X10*3/uL (160-400); Red Blood Count 3.62 X10*6/uL (4.20-5.50); Red Cell Distribution Width 15.5 % (11.0-16.0); SCAN SMEAR FLAG 1
[2024-05-04 21:29] LABS: Alanine Aminotransferase 51 U/L (0-31); Albumin Level 4.5 g/dL (3.5-5.0); Alkaline Phosphatase 58 U/L (39-117); Anion Gap 13 (12-20); Aspartate Amino Transferase 59 U/L (5-31); Bilirubin Total 0.4 mg/dL (0.0-1.0); Blood Urea Nitrogen 25 mg/dL (9-16); Calcium 10.2 mg/dL (8.4-10.2); Carbon Dioxide 24 mmol/L (22-29); Chloride 101 mmol/L (96-108); Creatinine Clr Calc Pharmacy 69.3; Estimated Glomerular Filt Rate 54; Glucose Random 114 mg/dL (60-115); Potassium 3.4 mmol/L (3.3-5.1); Sodium 135 mmol/L (135-145); Total Protein 8.8 g/dL (6.5-8.0)
[2024-05-04 21:37] LABS: Troponin-I High Sensitivity < 2.7 ng/L (<3.5-17.0)
[2024-05-04 21:52] LABS: Influenza A PCR NEGATIVE (Negative); Influenza B PCR NEGATIVE (Negative); Resp Syncy Virus RNA Qual PCR NEGATIVE (Negative); SARS COV2 PCR INHOUSE NEGATIVE (Negative)
[2024-05-04 22:00] LABS: SLIDE REVIEW VERIFIED
--- OUTSIDE RECORDS SUMMARY | 2024-05-05 01:52 | XMS_ITS | Continuity of Care Document ---
Author Organization [facility] Address [address] [place] [address]- Care Team Providers Care Sinker Winder Name Role Phone Delvin Davis MD Primary Care Physician Encounter [facility] [place] Date(s): 01/02/20 - 02/16/20 [facility] [address] [place] [address]- [facility] Attending Physician: Delvin Davis MD Admitting Physician: Delvin Davis MD Allergies, Adverse Reactions, Alerts No Known Medication Allergies Immunizations Given and Recorded Vaccine Date Status Refusal Reason influenza virus vaccine, inactivated 09/21/19 Give n influenza virus vaccine, inactivated 10/13/17 Give n tetanus/diphtheria/pertussis, acel(Tdap) 10/13/17 Given Medications chlorthalidone 25 mg oral tablet 25 mg, 1, tablet, By Mouth, Daily, for hypertension, # 90 tablet, Refills 11, Tot. Refills 11, Maintenance, 02/22/19 11:56:48 EDT, Route to Pharmacy Electronically, [id number], [facility]/pharmacy #[id number], [place]ic label Start Date: 02/22/19 Stop Date: 02/06/22 Status: Ordered Excedrin 2 tablet, By Mouth, Every 6 hours, 0 Refills, Maintenance, 10/01/18 8:59:30 EST Start Date: 10/01/18 Status: Ordered gabapentin 400 mg oral capsule via Arthritis team, Refills 0, Maintenance, 02/22/19 11:57:57 EDT Start Date: 02/22/19 Status: Ordered lisinopril 10 mg oral tablet 10 mg, 1, tablet, By Mouth, Daily, for hyeprtension, # 90 tablet, Refills 11, Tot. Refills 11, Maintenance, 02/22/19 11:57:24 EDT, Route to Pharmacy Electronically, [id number], [facility]/pharmacy #[id number], label in [place]ic Start Date: 02/22/19 Stop Date: 02/06/22 Status: Ordered Problem List Condition Effective Dates Status Health Status Inform ant ASCUS of cervix with negativ e high risk HPV, next due 2019(Confirmed) 2016 Active Diverticulosis(Confirmed) Active H/O colonoscopy, next due 2027(Confirmed) 2018 Active Hypertension(Confirmed) Active Morbid obesity(Confirmed) Active Prediabetes(Confirmed) Active Steatosis of liver(Confirmed) Active Social History Social History Type Response Smoking Status Never smoker entered on: 06/14/15 Sex
--- OUTSIDE RECORDS SUMMARY | 2024-05-05 01:52 | XMS_ITS | Continuity of Care Document ---
Author Organization [facility] ter Address [address] [place] [address]- Care Team Providers Care Perinatal Director Name Role Phone Jorge Luis Tubbs MD, Misty Lawler Primary Care Physici an Encounter [facility] [place] Date(s): 06/13/22 - 06/15/[address] [address] Discharge Disposition: A-Transfer VNA/Home Health Attending Physician: Juan Manuel Stroud MD Admitting Physician: Juan Manuel Stroud MD Referring Physician: Juan Manuel Stroud MD Allergies, Adverse Reactions, Alerts No Known Medication Allergies Immunizations Given and Recorded Vaccine Date Status Refusal Reason influenza virus vaccine, inactivated 09/21/19 Give n influenza virus vaccine, inactivated 10/13/17 Give n tetanus/diphtheria/pertussis, acel(Tdap) 10/13/17 Given Medications amLODIPine 5 mg oral tablet 5 mg, 1, tablet, By Mouth, Daily, Refills 0, Maintenance, 06/14/22 7:29:00 EDT, Partial fill upon patient request if the prescription is for a schedule II opioid drug. Start Date: 06/14/22 Status: Ordered amLODIPine 5 mg oral tablet 5 mg, Tablet, By Mouth, Hold for: SBP less than 130, 06/15/22 9:00:00 EDT Start Date: 06/15/22 Stop Date: 06/15/22 Status: Completed apixaban 2.5 mg oral tablet 1 tablet = 2.5 mg, By Mouth, 2 times a day, # 60 tablet, 0 Refills, Maintenance, 06/14/22 7:27:00 EDT, Tablet, [facility], Partial fill upon patient request if the prescription is for aschedule II opioid drug., 165, cm, 06/14/22 6:34:00... Start Date: 06/14/22 Status: Ordered baclofen 10 mg oral tablet 10 mg, 1, tablet, By Mouth, 3 times a day, Refills 0, Maintenance, 06/14/22 7:29:00 EDT, Partial fill upon patient request if the prescription is for a schedule II opioid drug. Start Date: 06/14/22 Status: Ordered baclofen 10 mg oral tablet 10 mg, Tablet, By Mouth, 06/15/22 15:00:00 EDT Start Date: 06/15/22 Stop Date: 06/15/22 Status: Completed cefadroxil 500 mg oral capsule 1 capsule = 500 mg, By Mouth, Every 12 hours, for 7 days, # 14 capsule, 0 Refills, Acute 06/21/22 7:41:00 EDT, 06/14/22 7:41:00 EDT, Capsule, [facility], Partial fill upon patient request if the prescription is for a schedule II opioid d... Start Date: 06/14/22 Stop Date: 06/21/22 Status: Ordered celecoxib 200 mg oral capsule 1 capsule = 200 mg, By Mouth, Daily in AM, 0 Refills, Maintenance, 06/14/22 7:29:00 EDT, Capsule, Partial fill upon patient request if the prescription is for a schedule II opioid drug. Start Date: 06/14/22 Status: Ordered Colace Capsule 100 mg, 1, capsule, By Mouth, 2 times a day, Refills 0, Maintenance, 06/14/22 7:29:00 EDT, Partial fill upon patient request if the prescription is for a schedule II opioid drug. Start Date: 06/14/22 Status: Ordered Dilaudid 2 mg oral tablet See Instructions, PRN Pain , Severe, 1-2 tablet By Mouth Every 4 hours, # 84 tablet, 0 Refills, Acute 06/21/22 7:28:00 EDT, 06/14/22 7:27:00 EDT, Tablet, [facility], Partial fill upon patient request if the prescription is for a schedule... Start Date: 06/14/22 Stop Date: 06/21/22 Status: Ordered Dilaudid 4 mg oral tablet 4 mg, Tablet, By Mouth, Every 4 hours, PRN for Pain , Severe, Routine, 06/14/22 7:42:00 EDT Start Date: 06/14/22 Stop Date: 06/21/22 Status: Ordered gabapentin 100 mg oral capsule 100 mg, 1, capsule, By Mouth, 3 times a day, Refills 0, Maintenance, 06/14/22 7:29:00 EDT, Partial fill upon patient request if the prescription is for a schedule II opioid drug. Start Date: 06/14/22 Status: Ordered gabapentin 100 mg oral capsule 100 mg, Capsule, By Mouth, 06/15/22 15:00:00 EDT Start Date: 06/15/22 Stop Date: 06/15/22 Status: Completed losartan 50 mg oral tablet 50 mg, 1, tablet, By Mouth, Daily in AM, Refills 0, Maintenance, 06/14/22 7:28:00 EDT, Partial fillupon patient request if the prescription is for a schedule II opioid drug. Start Date: 06/14/22 Status: Ordered losartan 50 mg oral tablet 50 mg, Tablet, By Mouth, Hold for: SBP less than 130, 06/15/22 9:00:00 EDT Start Date: 06/15/22 Stop Date: 06/15/22 Status: Completed MiraLax Powder 1 pack/packet = 17 Gm, By Mouth, Daily, PRN Constipation, 0 Refills, Maintenance, 06/14/22 7:29:00 EDT, Powder, Partial fill upon patient request if the prescription is for a schedule II opioid drug. Start Date: 06/14/22 Status: Ordered ondansetron 4 mg oral tablet 1 tablet = 4 mg, By Mouth, Every 8 hours, # 12 tablet, 0 Refills, Acute 06/19/22 9:33:00 EDT, 06/15/22 9:32:00 EDT, Tablet, [facility], Partial fill upon patient request if the prescription is for a schedule II opioid drug., 165, cm, ... Start Date: 06/15/22 Stop Date: 06/19/22 Status: Ordered pantoprazole 40 mg oral delayed release tablet = 40 mg, By Mouth, Daily in AM, 0 Refills, Maintenance, 06/14/22 7:29:00 EDT, EC Tablet Start Date: 06/14/22 Status: Ordered senna 187 mg oral tablet 1 tablet = 8.6 mg, By Mouth, Daily at bedtime, PRN as needed for constipation, 0 Refills, Maintenance, 06/14/22 7:29:00 EDT, Tablet, Partial fill upon patient request if the prescription is for a schedule II opioid drug. Start Date: 06/14/22 Status: Ordered traMADol 50 mg oral tablet See Instructions, PRN Pain , Mild, 1-2 tablet By Mouth Every 6 hours not to exceed 400 mg/day, # 56tablet, 0 Refills, Acute 06/21/22 7:27:00 EDT, 06/14/22 7:27:00 EDT, Tablet, [facility], Partial fill upon patient request if the presc... Start Date: 06/14/22 Stop Date: 06/21/22 Status: Ordered Tylenol 8 HR Arthritis Pain 650 mg oral tablet, extended release 2 tablet = 1,300 mg, By Mouth, Every 8 hours, PRN as needed for pain, # 24 tablet, 0 Refills, Maintenance, 06/13/22 7:48:00 EDT, ER Tablet, Partial fill upon patient request if the prescription is for a schedule II opioid drug. Start Date: 06/13/22 Status: Ordered Problem List Condition Effective Dates Status Health Status Inform ant ASCUS of cervix with negativ e high risk HPV, next due 2019(Confirmed) 2016 Active Diverticulosis(Confirmed) Active H/O colonoscopy, next due 2027(Confirmed) 2018 Active Hypertension(Confirmed) Active Morbid obesity(Confirmed) Active Obese class II(Confirmed) Active Prediabetes(Confirmed) Active Steatosis of liver(Confirmed) Active Results Radiology Reports * Exam Date Time Procedure Performing Provider Status 06/13/22 10:21 PM Knee 1 or 2 Views Right Nikolay Darby ; Rustam (Verified) Notes: (Knee 1 or 2 Views Right) Reason For Exam: Postop;Postop RESULT: Knee 1 or 2 Views Right Knee 1 or 2 Views Right 1 view INDICATION/CLINICAL QUESTION: Reason: Postop; Clinical Question(s): Other:; Implant Position; Special Instructions: Do today at 2200, No flexed knee in the lateral position. Keep leg straight; 2 Views COMPARISON: None. FINDINGS: Total knee arthroplasty with intact hardware and normal alignment. No fracture. Surgical drain in place. IMPRESSION: No apparent complication. WSN: [id number] Ordering Physician: Elsa Vasques Dictated By: Mason Borja MD Dictated Date/Time: 06/13/22 10:37 p Reviewed By: Mason Borja MD Signed By: Mason Borja MD Signed Date/Time: 06/13/22 10:37 pm Transcribed By: MARI Transcribed Date/Time: 06/13/22 10:37 pm Vital Signs Most recent to oldest [Reference Range]: 1 2 3 Height 165 cm (06/15/22 6:47 AM) 165 cm (06/15/22 1:24 AM) 165 cm (06/14/22 6:27 PM) Weight 105.8 kg (06/13/22 9:41 AM) 105.8 kg (06/13/22 7:26 AM) 105.8 kg (06/13/22 7:12 AM) Oxygen Saturation [94-100 %] 97 % (06/15/22 6:47 AM) 98 % (06/15/22 1:24 AM) 96 % (06/14/22 6:27 PM) Pulse Rate [55-90 bpm] 87 bpm (06/15/22 6:47 AM) 75 bpm (06/15/22 1:24 AM) 86 bpm (06/14/22 6:27 PM) Body Mass Index [18.5-24.99] 38.86 *>HHI* (06/13/22 9:41 AM) 38.86 *>HHI* (06/13/22 7:26 AM) 38.86 *>HHI* (06/13/22 7:12 AM) Blood Pressure [90-138/55-84 mm Hg] 172/76mm Hg *H* (06/15/22 7:38 AM) 172/76mm Hg *H* (06/15/22 7:38 AM) 172/76mm Hg *H* (06/15/22 6:47 AM) Respiratory Rate [16-30 br/min] 18 br/min (06/15/22 2:58 PM) 18 br/min (06/15/22 2:58 PM) 18 br/min (06/15/22 2:58 PM) Temperature [96.8-100.4 DegF] 98.9 DegF (06/15/22 6:47 AM) 97.9 DegF (06/15/22 1:24 AM) 98.5 DegF (06/14/22 6:27 PM) Liters per Minute 6 L/min (06/13/22 1:00 PM) Mode of Delivery (Oxygen) Room air (06/15/22 6:47 AM) Room air (06/15/22 1:24 AM) Room air (06/14/22 6:27 PM) Blood pressure sites Arm, right (06/15/22 6:47 AM) Arm, right (06/14/22 4:11 PM) Arm, right (06/14/22 10:48 AM) Temperature Route Oral (06/15/22 6:47 AM) Oral (06/15/22 1:24 AM) Oral (06/14/22 6:27 PM) Dry Weight 105.8 kg (06/13/22 9:41 AM) 105.8 kg (06/13/22 7:26 AM) 105.8 kg (06/13/22 7:12 AM) Weight Obtained Via Standing scale (06/13/22 7:26 AM) Standing scale (06/13/22 7:12 AM) Dry Weight Obtained Via Standing scale (06/13/22 7:26 AM) Standing scale (06/13/22 7:12 AM) Social History Social History Type Response Smoking Status Never smoker entered on: 06/14/15 Sex
--- OUTSIDE RECORDS SUMMARY | 2024-05-05 01:52 | XMS_ITS | Continuity of Care Document ---
Author Organization [facility] Address [address] [place] [id number]- Care Team Providers Care Carrier Operator Name Role Phone Jorge Luis Tubbs MD, Misty Lawler Primary Care Physici an Encounter [facility] [place] Date(s): 06/02/22 - 07/02/22 [facility] [address] [place] [address] Attending Physician: Maria L Hilliard Admitting Physician: AdmtrMaria L Referring Physician: Admtr, Ar8 Allergies, Adverse Reactions, Alerts No Known Medication [...] opioid drug. Start Date: 06/14/22 Status: Ordered apixaban 2.5 mg oral tablet 1 tablet = 2.5 mg, By Mouth, 2 times a day, # 60 tablet, 0 Refills, Maintenance, 06/14/22 7:27:00 EDT, Tablet, [facility], Partial fill upon patient [...] opioid drug. Start Date: 06/14/22 Status: Ordered celecoxib 200 mg oral capsule [...] opioid drug. Start Date: 06/14/22 Status: Ordered MiraLax Powder 1 pack/packet = 17 Gm, By Mouth, Daily, PRN Constipation, 0 Refills, Maintenance, 06/14/22 7:29:00 EDT, Powder, Partial fill upon patient request if the prescription is for a schedule II opioid drug. Start Date: 06/14/22 Status: Ordered pantoprazole 40 mg oral delayed [...] opioid drug. Start Date: 06/14/22 Status: Ordered Tylenol 8 HR Arthritis Pain [...]
--- OUTSIDE RECORDS SUMMARY | 2024-05-05 01:52 | XMS_ITS | Continuity of Care Document ---
Author Organization [facility] Address [address] [place] [address]- Care Team Providers Care Federal Agent Name Role Phone Delvin Davis MD Primary Care Physician Encounter [facility] Date(s): 01/17/20 - 01/27/20 [facility] [address] [place] [address]- [facility] Attending Physician: AdmMaria L amaya Admitting Physician: Admtr, Maria L Referring Physician: Admtr, Ar8 Allergies, Adverse [...] 02/22/19 11:56:48 EDT, Route to Pharmacy Electronically, [id number], [facility]/pharmacy #[id number], [place] label Start Date: 02/22/19 Stop Date: 02/06/22 [...] 02/22/19 11:57:24 EDT, Route to Pharmacy Electronically, [id number], [facility]/pharmacy #[id number], label in [place] Start Date: 02/22/19 Stop Date: 02/06/22 Status: Ordered Problem List Condition Effective Dates Status Health Status Inform ant ASCUS of cervix with negativ e high risk HPV, next due 2019(Confirmed) 2017 Active Diverticulosis(Confirmed) Active H/O colonoscopy, next due 2027(Confirmed) 2018 Active Hypertension(Confirmed) Active Morbid obesity(Confirmed) Active Prediabetes(Confirmed) Active Steatosis of liver(Confirmed) Active Social History Social History Type Response Smoking Status Never smoker entered on: 06/14/15 Sex
--- OUTSIDE RECORDS SUMMARY | 2024-05-05 01:52 | XMS_ITS | Continuity of Care Document ---
Author Organization [facility] ter Address [address] [place] [address]- Care Team Providers Care Industrial Workers Name Role Phone Jorge Luis Tubbs MD, Misty Lawler Primary Care Physici an [place] [facility] [place] 05/28/22 - 06/27/[address] [address] Attending Physician: AdmMaria L amaya Admitting Physician: Admtr, Ar8 Referring Physician: Admtr, Ar8 Allergies, Adverse Reactions, [...] 0 Refills, Maintenance, 06/14/22 7:27:00 EDT, Tablet, [facility], Partial fill upon patient [...]
--- OUTSIDE RECORDS SUMMARY | 2024-05-05 01:52 | XMS_ITS | Continuity of Care Document ---
Author Organization [facility] ter Address [address] [place] [phone]- Care Team Providers Care Office Lead Name Role Phone Jorge Luis Tubbs MD, Misty Lawler Primary Care Physici an [place] [facility] [place] Date(s): 07/24/22 - 07/24/[address] [address] Discharge Disposition: A-D/C Home Attending Physician: Juan Manuel Stroud MD Admitting [...] 0 Refills, Maintenance, 06/14/22 7:27:00 EDT, Tablet, [facility], Partial fill upon patient request if [...] hours, # 84 tablet, 0 Refills, Acute 07/31/22 10:52:00 EDT, 07/24/22 10:51:00 EDT, Tablet, Partial fill upon patient request if the prescription is for a schedule II opioid drug. Start Date: 07/24/22 Stop Date: 07/31/22 Status: Ordered Dilaudid 4 mg oral tablet 4 mg, Tablet, By Mouth, Daily, give once prior to discharge to PT, PRN for Pain , Severe, Routine, 07/24/22 9:34:00 EDT Start Date: 07/24/22 Stop Date: 07/24/22 Status: Discontinued gabapentin 100 mg oral capsule 100 mg, 1, capsule, By Mouth, 3 times a day, Refills 0, Maintenance, 06/14/22 7:29:00 EDT, Partial fill upon patient request if the prescription is for a schedule II opioid drug. Start Date: 06/14/22 Status: Ordered losartan 50 mg oral tablet 50 mg, 1, tablet, By Mouth, 2 times a day, Refills 0, Maintenance, 06/14/22 7:28:00 EDT, Partial fill upon patient request if [...] Status: Ordered traMADol 50 mg oral tablet 1 tablet = 50 mg, By Mouth, Every 6 hours, PRN Pain , Mild, for 7 days, # 56 tablet, 0 Refills, Acute 07/31/22 10:51:00 EDT, 07/24/22 10:51:00 EDT, Tablet, Partial fill upon patient request if the prescription is for a schedule II opioid drug. Start Date: 07/24/22 Stop Date: 07/31/22 Status: Ordered Tylenol 8 HR Arthritis Pain [...] Exam Date Time Procedure Performing Provider Status 07/24/22 9:14 AM Knee 1 or 2 Views Right Montero Vickie e; Auth (Verified) Notes: (Knee 1 or 2 Views Right) Reason For Exam: Arthrofibrosis, Right Knee Manipulation RESULT: Knee 1 or 2 Views Right Knee 1 or 2 Views Right, 2 views REASON: Arthrofibrosis, Right Knee Manipulation; Special Instructions: IN [facility] OR COMPARISON: 06/13/2022 FINDINGS: There is no evidence of acute or healing fracture, dislocation or bone lesion. Right knee total arthroplasty in place. No evidence of joint effusion. IMPRESSION: No evidence of postoperative complication. WSN: [id number] Ordering Physician: Juan Manuel Stroud Dictated By: Kye Duke MD Dictated Date/Time: 07/24/22 9:49 am Reviewed By: Kye Duke MD Signed By: Kye Duke MD Signed Date/Time: 07/24/22 9:49 am Transcribed By: MARI Transcribed Date/Time: 07/24/22 9:48 am Vital Signs Most recent to oldest [Reference Range]: 1 2 3 Oxygen Saturation [94-100 %] 99 % (07/24/22 10:00 AM) 99 % (07/24/22 9:45 AM) 100 % (07/24/22 9:30 AM) Pulse Rate [55-90 bpm] 75 bpm (07/24/22 7:40 AM) Blood Pressure [90-138/55-84 mm Hg] 176/77mm Hg *H* (07/24/22 10:00 AM) 171/72mm Hg *H* (07/24/22 9:45 AM) 169/74mm Hg *H* (07/24/22 9:30 AM) Respiratory Rate [16-30 br/min] 17 br/min (07/24/22 10:00 AM) 19 br/min (07/24/22 9:45 AM) 14 br/min *L* (07/24/22 9:42 AM) Temperature [96.8-100.4 DegF] 97.8 DegF (07/24/22 10:00 AM) 97.8 DegF (07/24/22 9:45 AM) 98.6 DegF (07/24/22 9:15 AM) Liters per Minute 6 L/min (07/24/22 9:15 AM) Mode of Delivery (Oxygen) Room air (07/24/22 9:45 AM) Room air (07/24/22 9:30 AM) Simple face mask (07/24/22 9:15 AM) Blood pressure sites Arm, right (07/24/22 9:45 AM) Arm, right (07/24/22 9:15 AM) Arm, right (07/24/22 7:40 AM) Temperature Route Temporal (07/24/22 9:45 AM) Temporal (07/24/22 9:15 AM) Temporal (07/24/22 7:40 AM) Dry Weight 100.7 kg (07/24/22 7:40 AM) Dry Weight Obtained Via Standing scale (07/24/22 7:40 AM) Social History Social History Type Response Smoking Status Never smoker entered on: 06/14/15 Sex Note * BHSPowerscribe , CIS S: TRANSCRIBE Leilani BURR, Kye S: VERIFY Event Display: Result: Authored Date: [id number] Knee 1 or 2 Views Right, 2 views REASON: Arthrofibrosis, Right Knee Manipulation; Special Instructions: IN [place] OR COMPARISON: 06/13/2022 FINDINGS: There is no evidence of acute or healing fracture, dislocation or bone lesion. Right knee total arthroplasty in place. No evidence of joint effusion. IMPRESSION: No evidence of postoperative complication. WSN: [id number] Ordering Physician: Juan Manuel Stroud Dictated By: Kye Duke MD Dictated Date/Time: 07/24/22 9:49 am Reviewed By: Kye Duke MD Signed By: Kye Duke MD Signed Date/Time: 07/24/22 9:49 am Transcribed By: MARI Transcribed Date/Time: 07/24/22 9:48 am Care Team Personnel Name: Misty Ornelas MD Address: [address] [place] [address]
--- OUTSIDE RECORDS SUMMARY | 2024-05-05 01:52 | XMS_ITS | Continuity of Care Document ---
Author Organization [facility] ter Address [address] [place] [id number]- Care Team Providers Care Newspaper Distributor Supervisor Name Role Phone Jorge Luis Tubbs MD, Misty Lawler Primary Care Physici an Encounter [facility] [place] Date(s): 05/02/22 - 06/11/[address] [address] Attending Physician: Luanne BURR, Juan Manuel Montelongo Admitting Physician: Juan Manuel Stroud MD Referring Physician: Juan Manuel Castañeda DO Allergies, Adverse Reactions, Alerts No Known Medication Allergies Immunizations Given and Recorded Vaccine Date Status Refusal Reason influenza virus vaccine, inactivated 09/21/19 Give n influenza virus vaccine, inactivated 10/13/17 Give n tetanus/diphtheria/pertussis, acel(Tdap) 10/13/17 Given Medications Excedrin 2 tablet, By Mouth, Every 6 hours, 0 Refills, Maintenance, 10/01/18 8:59:30 EST Start Date: 10/01/18 Status: Ordered gabapentin 400 mg oral capsule via Arthritis team, Refills 0, Maintenance, 02/22/19 11:57:57 EDT Start Date: 02/22/19 Status: Ordered losartan 50 mg oral tablet 0 Refills, Maintenance, 06/02/22 8:58:00 EDT, Partial fill upon patient request if the prescriptionis for a schedule II opioid drug. Start Date: 06/02/22 Status: Ordered Problem List Condition Effective Dates Status Health Status Inform ant ASCUS of cervix with negativ e high risk HPV, next due 2019(Confirmed) 2016 Active Diverticulosis(Confirmed) Active H/O colonoscopy, next due 2027(Confirmed) 2017 Active Hypertension(Confirmed) Active Morbid obesity(Confirmed) Active Obese class II(Confirmed) Active Prediabetes(Confirmed) Active Steatosis of liver(Confirmed) Active Social History Social History Type Response Smoking Status Never smoker entered on: 06/14/15 Sex
== END 2024-05-05 01:55 | disposition left against medical advice (07) ==
PROVIDERS: Emergency Provider Emergency Medicine; PCP Internal Medicine
DX: R50.9 Fever, unspecified (principal); R42 Dizziness and giddiness; R51.9 Headache, unspecified
CPT/HCPCS: 0241U; 71046; 80053; 84484; 85025; 93005; 99283

== ENCOUNTER → 2024-05-04 20:58 | Outpatient (BNV) | payer OTHER, SELFPAY | PROVIDERS: Emergency Provider Emergency Medicine; PCP Internal Medicine; Visit Provider Internal Medicine | DX: R42 Dizziness and giddiness (principal) | CPT/HCPCS: 93010 ==

== ENCOUNTER 2024-05-05 11:15 | Emergency (ER) | payer OTHER, SELFPAY ==
[2024-05-05] VITALS (12 sets, daily range): BP systolic 116–152; BP diastolic 58–77; PULSE 71–93; RESP 14–20; TEMP 36.8–37.9; O2SAT 96–100; BMI 37.8
--- NOTE | 2024-05-05 11:26 | ED_ITS ---
HPI - General Adult General Chief complaint: Fever Stated complaint: vomiting fever Time Seen by Provider: 05/05/24 12:56 Source: patient, RN notes reviewed and old records reviewed Mode of arrival: ambulatory Limitations: no limitations History of Present Illness ED Provider: Gisselle Ahumada PA-C HPI narrative: 53-year-old female with a history of CML on oral chemotherapy, H pylori on 03/28/24 EGD, polyarthralgia, varicose veins, osteoarthritis, migraines, cataracts, HTN who presents to the ER for evaluation of fevers, dizziness, vomiting. She was recently found to have H pylori, started on metronidazole and tetracycline along with PPI & bismuth by her glost kiln placer on 04/26/2024. She presented for evaluation yesterday and had bloodwork drawn but left before she saw a provider. Reports that she had a fever to 104 yesterday, along with dizzyness and headache. Denies feeling febrile today, took tylenol this morning. Denies headache or dizziness currently. Denies chest pain, shortness of breath. Vomited food contents this morning, denies seeing blood in it. Denies nausea or abdominal pain currently. Denies sick contacts. Reports her urine has been darker than usual, denies any other urinary symptoms. Reports stools have been dark since starting medications for h.pylori infection, including peptobismol. MD complaint: fever, dizzy, vomiting Onset (ago): day(s) (1) Associated symptoms: fever/chills, headaches and nausea/vomiting Treatments prior to arrival: other (Tylenol) Related Data Home Medications ?Medication ?Instructions ?Recorded ?Confirmed losartan 50 mg tablet 50 mg PO DAILY 03/12/23 03/30/24 carvedilol 12.5 mg tablet 12.5 mg PO BID 10/27/23 03/30/24 chlorthalidone 50 mg tablet 50 mg PO DAILY 10/27/23 03/30/24 Previous Rx's ?Medication ?Instructions ?Recorded dasatinib 100 mg tablet 100 mg PO DAILY #30 tabs 12/10/23 bismuth subsalicylate 262 mg 2 tab PO QID 14 days #112 tabs 04/26/24 chewable tablet metronidazole 500 mg tablet 1,000 mg (2 x 500 mg) PO BID #56 04/26/24 tabs omeprazole 20 mg capsule,delayed 20 mg PO BID 14 days #28 caps 04/26/24 release ondansetron 4 mg disintegrating 4 mg PO Q8H PRN nausea and 04/26/24 tablet vomiting #20 tabs sennosides 8.6 mg tablet (Natural 17.2 mg (2 x 8.6 mg) PO BEDTIME 04/26/24 Senna Laxative) constipation #60 tabs tetracycline 500 mg capsule 1,000 mg (2 x 500 mg) PO Q12H #56 04/26/24 caps Allergies Allergy/AdvReac Type Severity Reaction Status Date / Time Seasonal Allergies Allergy Intermediate Watery Eye Verified 05/05/24 11:30 Review of Systems 2 Review of Systems: Yes all other systems are reviewed and are negative REPLACED BY [facility] Past Medical History Medical History (Updated 05/05/24 @ 16:33 by JOSÉ MIGUEL Murphy) Tubular adenoma of colon Helicobacter pylori (H. pylori) Abnormal endoscopy of upper gastrointestinal tract CML (chronic myelocytic leukemia) Cataract fragments in eye following surgery Migraine HTN (hypertension) Osteoarthritis Surgical History H/O colonoscopy Hx of tubal ligation Hx of cholecystectomy Hx of section Family History Family History Mother Diabetes Father Stroke Brother Diabetes Asthma Brother Prostate cancer Social History Social History Household Members: None Housing: Apartment Alcohol intake: never Patient Tobacco Use Status: Never used Tobacco Years Smoked: 10 Smoked in Last 30 Days: No e-Cigarette/Vaping Use: Never Used Use of substances other than those prescribed or required for medical reasons: No Advance Directives: No Do you have a plan to hurt others: No Plan service: No Current occupational status: unemployed Physical Exam ED Vital Signs: Vital Signs - 24 hr 05/05/24 11:24 05/05/24 13:09 05/05/24 13:10 Temperature 98.2 F 98.6 F Pulse Rate 72 71 74 Respiratory Rate 18 20 Blood Pressure 152/74 H 140/70 H 136/68 Pulse Oximetry 96 99 Oxygen Delivery Method Room Air Room Air 05/05/24 13:11 05/05/24 13:12 05/05/24 14:31 Temperature Pulse Rate 75 84 80 Respiratory Rate 18 Blood Pressure 128/70 116/71 137/68 Pulse Oximetry 99 Oxygen Delivery Method Room Air 05/05/24 14:50 05/05/24 16:00 05/05/24 17:22 Temperature 99.4 F 98.6 F Pulse Rate 73 75 85 Respiratory Rate 19 14 Blood Pressure 142/58 H 144/70 H 142/62 H Pulse Oximetry 100 97 Oxygen Delivery Method Room Air Room Air 05/05/24 17:25 05/05/24 17:27 Temperature Pulse Rate 93 90 Respiratory Rate Blood Pressure 141/68 H 149/77 H Pulse Oximetry Oxygen Delivery Method BMI result Body Mass Index 37.8 Appearance: Awake, alert. Oriented X3. Sitting up in stretcher, no acute distress. Head: normocephalic, atraumatic. Eyes: Pupils equal, round and reactive to light. ENT: Pharynx normal. No tonsillar swelling or exudate. Neck: Normal inspection. Neck supple. CVS: Normal heart rate and rhythm. No murmurs, rubs, clicks appreciated. Respiratory: Symmetrical chest rise. No respiratory distress. Lungs clear to auscultation bilaterally. Abdomen: Soft, nondistended. Normoactive +BS x4. Nontender to palpation, no rebound or guarding. Skin: Skin warm and dry. Normal skin color. Normal skin turgor. No rashes. Extremities: No lower extremity edema. No joint swelling. Neuro/psych: Oriented X 3. Moving all extremities equally and spontaneously. CN II-XII grossly intact. Normal speech and cognition. Course Course Course Narrative: This is an RME: Additional HPI, ROS, PE not included below will be deferred to primary provider. RME assessment and note performed by: Gertrude Ty PA-C This is a 75-wido-vrc-female, with a hx of leukemia on oral chemotherapy who presents to the ER with complaints of fever, headache and dizziness since yesterday. Also endorsing left breast pain. +Vomiting, 1 episode. Checked into the emergency room yesterday leave she is metronidazole and tetracycline for bacteria in my stomach . Plan: Labs, UA, EKG, Medications Administered Discontinued Medications Generic Name Dose Route Start Last Admin Trade Name Freq PRN Reason Stop Dose Admin Acetaminophen 975 mg 05/05/24 16:12 05/05/24 16:29 Acetaminophen 325 Mg Tablet PO 05/05/24 16:13 975 mg ONCE ONE Administration Sodium Chloride 1,000 mls @ 999 mls/hr 05/05/24 13:00 05/05/24 14:28 Ns IVCONT 05/05/24 14:00 999 mls/hr .Q1H1M HALLE Administration Sodium Chloride 1,000 mls @ 999 mls/hr 05/05/24 15:30 05/05/24 16:30 Ns IVCONT 05/05/24 16:30 999 mls/hr .Q1H1M HALLE Administration Ondansetron HCl 4 mg 05/05/24 12:58 05/05/24 14:28 Ondansetron Hcl 4 Mg/2 Ml Vial IVPUSH 05/05/24 12:59 4 mg ONCE ONE Administration Medical Decision Making Medical Decision Making MDM Narrative: 53-year-old female with a history of CML on oral chemotherapy, H pylori on 03/28/24 EGD, polyarthralgia, varicose veins, osteoarthritis, migraines, cataracts, HTN who presents to the ER for evaluation of fevers, dizziness, vomiting. She was recently found to have H pylori, started on metronidazole and tetracycline along with PPI & bismuth by her glost kiln placer on 04/26/2024. On arrival to the ED today, patients vital signs were withing normal limits. CBC significant for WBC 2.8 (hx leukemia, currently on PO chemo), stable normocytic anemia with H/H of 11.6/34.1 Chemistry significant for mildly low sodium at 133, BUN elevated to 28, Cr of 1.36 which is increased from 1.03 yesterday, mildly elevated AST/ALT at 62/52. Meets criteria for OMI with >.3mg/dL increase in <48 hours. Likely due to dehydration given vomiting. Given 1 L of fluid initially. Orthostatic vital signs taken after 1L of fluid given, positive for orthostatic hypotension with systolic drop from 136 to 116. Second L of fluid ordered and plan to obtain another set of orthostatics after it is given. signed out to night provider to reassess orthos and d/c home - d/w pt and family who are in agreement w/ plan, all questions answered Differential Diagnosis Differential Diagnoses: The differential diagnosis associated with the presentation includes Viral syndrome, dehydration, adverse side effect to antibiotics, UTI, gastroenteritis, orthostatic hypotension due to hypovolemia Admission/Observation Consideration of admission/observation: Escalation of care including admission/observation considered Lab Data MDM Lab Attestation statement: I reviewed the patient's lab results. Neutropenia, mild anemia, mild hyponatremia and elevated BUN likely related to dehydration 05/05/24 12:05 05/05/24 12:05 Labs: Lab Results 05/05/24 05/05/24 Range/Units 12:05 14:48 WBC 2.8 L (4.8-10.8) X10*3/uL RBC 3.66 L (4.20-5.50) X10*6/uL Hgb 11.6 L (12.0-16.0) g/dl Hct 34.1 L (37.0-47.0) % MCV 93.2 (80.0-98.0) fL MCH 31.7 (27.0-33.0) pg MCHC 34.0 (31.0-35.0) g/dl RDW 15.6 (11.0-16.0) % Plt Count 267 (160-400) X10*3/uL MPV 8.3 L (9.4-12.3) fL Immature Gran % (Auto) 0.7 H (0.0-0.4) % Neut % (Auto) 32.4 L (45-73) % Lymph % (Auto) 21.3 (20-40) % [place] % (Auto) 32.9 H (2-11) % Eos % (Auto) 12.3 H (0-4) % Baso % (Auto) 0.4 (0-2) % Lymph # (Auto) 0.6 L (1.2-4.9) X10*3/uL [place] # (Auto) 0.9 (0.1-1.2) X10*3/uL Eos # (Auto) 0.3 (0.0-0.4) X10*3/uL Baso # (Auto) 0.0 (0.0-0.2) X10*3/uL Abs Immat Gran (auto) 0.02 (0.00-0.03) X10*3/uL Absolute Neuts (auto) 0.9 L (2.0-8.3) x10*3/uL Absolute Nucleated RBC 0.000 (0.0-0.012) X10*3/uL Nucleated RBC % (auto) 0.0 (0.0-0.2) /100WBC Smear Tech's Comments VERIFIED Sodium 133 L (135-145) mmol/L Potassium 3.5 (3.3-5.1) mmol/L Chloride 99 (96-108) mmol/L Carbon Dioxide 27 (22-29) mmol/L Anion Gap 11 L (12-20) BUN 28 H (9-16) mg/dL Creatinine 1.36 (0.5-1.4) mg/dL Estim Creat Clear Calc 50.3 Estimated GFR 39 Random Glucose 110 (60-115) mg/dL Calcium 10.0 (8.4-10.2) mg/dL Magnesium 1.7 (1.6-2.6) mg/dL Total Bilirubin 0.4 (0.0-1.0) mg/dL Direct Bilirubin 0.2 (0.0-0.5) mg/dL AST 62 H (5-31) U/L ALT 52 H (0-31) U/L Alkaline Phosphatase 50 (39-117) U/L Troponin I High Sens < 2.7 (<3.5-17.0) ng/L Total Protein 8.6 H (6.5-8.0) g/dL Albumin 4.4 (3.5-5.0) g/dL Lipase 21 (8-78) U/L Urine Color Yellow Urine Appearance Clear Urine pH 5.5 (5.0-9.0) Ur Specific [place] 1.020 (1.005-1.025) Urine Protein Negative (Neg-Trace) mg/dL Urine Glucose (UA) Negative (Negative) mg/dL Urine Ketones Negative (Negative) mg/dL Urine Blood Negative (Negative) Urine Nitrite Negative (Negative) Ur Leukocyte Esterase Small (1+) H (Negative) Urine RBC 0-2 (0-2) /HPF Urine WBC 0-5 (0-5) /HPF Ur Squamous Epith Cells 3-5 (0-2) /HPF Urine Bacteria None Seen (None Seen) Hyaline Casts 3-5 (0-2) /LPF Influenza Type A (PCR) NEGATIVE (Negative) Influenza Type B (PCR) NEGATIVE (Negative) RSV RNA Qual (PCR) NEGATIVE (Negative) SARS-CoV-2 RNA (RT-PCR) NEGATIVE (Negative) Independent Interpretation I performed an independent interpretation of an: Plain X-Ray Interpretation: Chest x-ray from yesterday reviewed, no evidence of pneumonia or focal infiltrate Radiology Impression Discussion of test interpretation with radiology: I have reviewed the radiologist's reading. Radiologist Impression: XR/XR chest 2V IMPRESSION: No active cardiopulmonary disease. Independent Historian Clinical information obtained from an independent historian. History obtained from or confirmed by: Other (Adult children at the bedside) External Record Review External record reviewed: Outpatient record, Prior outpatient labs and Prior outpatient radiology Prescription Management I considered prescription management with: Pain Medication and Antibiotic Chronic Conditions Patient?s care impacted by: Other (CML) Critical Care Time Critical Care Time Critical Care Time: Yes Total Critical Care Time: 36 Attestation: I have personally provided critical care time exclusive of time spent on separately billable procedures. Time includes review of chart, lab data, radiology results, repeat vital signs after IV fluid boluses, and monitoring for potential decompensation. Intervention performed as documented. Discharge Plan Discharge Clinical Impression: Orthostatic dizziness, Nausea & vomiting Patient Disposition: Still a Patient Instructions: Acute Nausea and Vomiting (ED), Dizziness (ED) Additional Instructions: Your lab workup was largely unremarkable today. Your chest x-ray from yesterday did not show any evidence of pneumonia. You tested negative for COVID, flu, RSV. Your symptoms may be an adverse reaction to your antibiotics. Recommend taking Zofran prior to taking these antibiotics, make sure eating some food prior to taking the antibiotics. Follow-up with GI. Call for an appointment. Make sure drinking plenty of fluids. Follow-up with your doctor. If you develop new or worsening symptoms call 911 or come back to the ER for further evaluation. Prescriptions: No Action losartan 50 mg tablet 50 mg PO DAILY dasatinib 100 mg Tablet 100 mg PO DAILY Qty: 30 3RF chlorthalidone 50 mg tablet 50 mg PO DAILY carvedilol 12.5 mg tablet 12.5 mg PO BID bismuth subsalicylate 262 mg tablet,chewable 2 tab PO QID 14 Days Qty: 112 0RF metronidazole 500 mg tablet 1,000 mg PO BID Qty: 56 0RF tetracycline 500 mg capsule 1,000 mg PO Q12H Qty: 56 0RF omeprazole 20 mg capsule,delayed release(DR/EC) 20 mg PO BID 14 Days Qty: 28 0RF ondansetron 4 mg tablet,disintegrating 4 mg PO Q8H PRN (Reason: nausea and vomiting) Qty: 20 0RF sennosides [Natural Senna Laxative] 8.6 mg tablet 17.2 mg PO BEDTIME Qty: 60 3RF Print Language: Austrian
--- NOTE | 2024-05-05 11:30 | ECG_ITS ---
Test Reason : chest pain Blood Pressure : / mmHG Vent. Rate : 067 BPM Atrial Rate : 067 BPM P-R Int : 184 ms QRS Dur : 084 ms QT Int : 398 ms P-R-T Axes : 026 025 028 degrees QTc Int : 420 ms Normal sinus rhythm Nonspecific ST and T wave abnormality Borderline ECG When compared with ECG of 04-MAY-2024 21:00, No significant change was found Referred By: Gertrude Ty Electronically Signed By:SUSI MORENO
[2024-05-05 12:11] LABS: Basophils Percent Auto 0.4 % (0-2); Eosinophils Absolute Auto 0.3 X10*3/uL (0.0-0.4); Eosinophils Percent Auto 12.3 % (0-4); Hematocrit 34.1 % (37.0-47.0); Hemoglobin 11.6 g/dl (12.0-16.0); Imm Gran Abs Auto 0.02 X10*3/uL (0.00-0.03); Imm Gran Pct Auto 0.7 % (0.0-0.4); Lymphocytes Absolute Auto 0.6 X10*3/uL (1.2-4.9); Lymphocytes Percent Auto 21.3 % (20-40); MANUAL DIFF FLAG SCAN; Mean Corpuscular Hemoglobin 31.7 pg (27.0-33.0); Mean Corpuscular Volume 93.2 fL (80.0-98.0); Mean Platelet Volume 8.3 fL (9.4-12.3); Monocytes Absolute Auto 0.9 X10*3/uL (0.1-1.2); Monocytes Percent Auto 32.9 % (2-11); Neutrophils Absolute Auto 0.9 x10*3/uL (2.0-8.3); Neutrophils Percent Auto 32.4 % (45-73); Platelet Count 267 X10*3/uL (160-400); Red Blood Count 3.66 X10*6/uL (4.20-5.50); Red Cell Distribution Width 15.6 % (11.0-16.0); SCAN SMEAR FLAG 1; White Blood Count 2.8 X10*3/uL (4.8-10.8)
[2024-05-05 12:41] LABS: Alanine Aminotransferase 52 U/L (0-31); Albumin Level 4.4 g/dL (3.5-5.0); Alkaline Phosphatase 50 U/L (39-117); Anion Gap 11 (12-20); Aspartate Amino Transferase 62 U/L (5-31); Bilirubin Direct 0.2 mg/dL (0.0-0.5); Bilirubin Total 0.4 mg/dL (0.0-1.0); Blood Urea Nitrogen 28 mg/dL (9-16); Carbon Dioxide 27 mmol/L (22-29); Chloride 99 mmol/L (96-108); Creatinine Clr Calc Pharmacy 50.3; Estimated Glomerular Filt Rate 39; Glucose Random 110 mg/dL (60-115); Lipase 21 U/L (8-78); Magnesium 1.7 mg/dL (1.6-2.6); Potassium 3.5 mmol/L (3.3-5.1); Sodium 133 mmol/L (135-145); Total Protein 8.6 g/dL (6.5-8.0); Troponin-I High Sensitivity < 2.7 ng/L (<3.5-17.0)
[2024-05-05 12:55] LABS: Influenza A PCR NEGATIVE (Negative); Influenza B PCR NEGATIVE (Negative); Resp Syncy Virus RNA Qual PCR NEGATIVE (Negative); SARS COV2 PCR INHOUSE NEGATIVE (Negative)
[2024-05-05 13:21] LABS: SLIDE REVIEW VERIFIED
[2024-05-05] MEDS: ondansetron HCL 4 MG/2 ML VIAL IVPUSH (14:28)
[2024-05-05] MEDS: 0.9 % Sodium Chloride 1,000 ML 999 ML IVCONT ×2 (14:28→16:30)
[2024-05-05 14:57] LABS: Appearance Urine Clear; Color Urine Yellow; Glucose Urine UA Negative (Negative); Leukocyte Esterase Urine Small (1+) (Negative); Nitrite Urine Negative (Negative); PH 5.5 (5.0-9.0); UMIC TRIGGER UACC YES; Urine Blood Negative (Negative); Urine Ketones Negative (Negative); Urine Protein Negative (Neg-Trace)
[2024-05-05 15:06] LABS: Bacteria Urine None Seen (None Seen); RBC Urine 0-2 /HPF (0-2); UACC Culture Trigger YES; WBC Urine 0-5 /HPF (0-5)
[2024-05-05] MEDS: Acetaminophen 325 MG TABLET 975 MG PO (16:29)
--- NOTE | 2024-05-05 16:57 | MHC.EDTECH ---
Patient walked to bathroom
== END 2024-05-05 18:18 | disposition home or self-care (01) ==
PROVIDERS: Physician Assistant Medical; Emergency Provider Emergency Medicine; PCP Internal Medicine
DX: R42 Dizziness and giddiness (principal); R11.2 Nausea with vomiting, unspecified; C92.10 Chronic myeloid leukemia, BCR/ABL-positive, not having achieved remission; I10 Essential (primary) hypertension; Z79.899 Other long term (current) drug therapy
CPT/HCPCS: 0241U; 80048; 80076; 81001; 83690; 83735; 84484; 85025; 87086; 93005; 96374; 99284; 99285; J2405

== ENCOUNTER → 2024-05-05 11:30 | Outpatient (BNV) | payer OTHER, SELFPAY | PROVIDERS: Emergency Provider Emergency Medicine; PCP Internal Medicine; Visit Provider Internal Medicine | DX: R07.9 Chest pain, unspecified (principal) | CPT/HCPCS: 93010 ==

== ENCOUNTER 2024-05-24 16:49 | Outpatient (REF) | payer OTHER, SELFPAY ==
[2024-05-24 18:16] LABS: Bacterial Vaginosis PCR NEGATIVE (Negative); Candida Group PCR NOT DETECTED (Not Detect); Candida glab krusei PCR NOT DETECTED (Not Detect); Trichomonas vaginalis PCR NOT DETECTED (Not Detect)
== END 2024-05-24 16:50 | disposition home or self-care (01) ==
LOC: HO.HHCLNP 16:49
PROVIDERS: Visit Provider Advanced Practice Midwife
DX: R30.0 Dysuria (principal); N89.8 Other specified noninflammatory disorders of vagina
CPT/HCPCS: 0352U; 87086; 87088; 87186

== ENCOUNTER 2024-06-07 16:17 | Outpatient (REF) | payer OTHER, SELFPAY | END 2024-06-07 16:18 | disposition home or self-care (01) | LOC: HO.LNP 16:17 | PROVIDERS: Visit Provider Advanced Practice Midwife | DX: R39.9 Unspecified symptoms and signs involving the genitourinary system (principal) | CPT/HCPCS: 87086; 87088; 87186 ==

== ENCOUNTER 2024-06-17 10:19 | Outpatient (REF) | payer OTHER, SELFPAY ==
[2024-06-17 11:35] LABS: Basophils Absolute Auto 0.1 X10*3/uL (0.0-0.2); Basophils Percent Auto 0.6 % (0-2); Eosinophils Absolute Auto 0.4 X10*3/uL (0.0-0.4); Eosinophils Percent Auto 4.3 % (0-4); Hematocrit 31.3 % (37.0-47.0); Hemoglobin 10.3 g/dl (12.0-16.0); Imm Gran Abs Auto 0.02 X10*3/uL (0.00-0.03); Imm Gran Pct Auto 0.2 % (0.0-0.4); Lymphocytes Percent Auto 66.1 % (20-40); MANUAL DIFF FLAG SCAN; Mean Corpuscular HGB Conc 32.9 g/dl (31.0-35.0); Mean Corpuscular Hemoglobin 31.4 pg (27.0-33.0); Mean Corpuscular Volume 95.4 fL (80.0-98.0); Mean Platelet Volume 7.7 fL (9.4-12.3); Monocytes Absolute Auto 0.9 X10*3/uL (0.1-1.2); Monocytes Percent Auto 9.1 % (2-11); Neutrophils Absolute Auto 1.9 x10*3/uL (2.0-8.3); Neutrophils Percent Auto 19.7 % (45-73); Platelet Count 239 X10*3/uL (160-400); Red Blood Count 3.28 X10*6/uL (4.20-5.50); Red Cell Distribution Width 15.7 % (11.0-16.0); SCAN SMEAR FLAG 1; White Blood Count 9.8 X10*3/uL (4.8-10.8)
[2024-06-17 11:37] LABS: Lymphocytes Absolute Auto 6.5 X10*3/uL (1.2-4.9)
[2024-06-17 11:49] LABS: Estimated Average Glucose 111 mg/dL; Hemoglobin A1c % 5.5 % (<6.0)
[2024-06-17 12:26] LABS: SLIDE REVIEW VERIFIED
[2024-06-17 13:37] LABS: Alanine Aminotransferase 46 U/L (0-31); Albumin Level 4.2 g/dL (3.5-5.0); Alkaline Phosphatase 67 U/L (39-117); Anion Gap 13 (12-20); Aspartate Amino Transferase 40 U/L (5-31); Bilirubin Total 0.2 mg/dL (0.0-1.0); Blood Urea Nitrogen 21 mg/dL (9-16); Calcium 9.9 mg/dL (8.4-10.2); Carbon Dioxide 25 mmol/L (22-29); Chloride 104 mmol/L (96-108); Cholesterol 182 mg/dL (<200); Estimated Glomerular Filt Rate 56; Glucose Random 90 mg/dL (60-115); HDL Cholesterol 49 mg/dL (>40); LDL Cholesterol Calculated 102 mg/dL (<100); Potassium 3.8 mmol/L (3.3-5.1); Sodium 138 mmol/L (135-145); Triglycerides 158 mg/dL (<150)
[2024-06-17 13:43] LABS: TSH reflex Free T4 2.16 uIU/mL (0.32-4.0); Vitamin D 25-OH Total 18.7 ng/mL (>30)
[2024-06-17 13:52] LABS: Reflex LDLD? No
[2024-06-17 13:54] LABS: Folate 7.5 ng/mL (> or = 4.0); Vitamin B12 425 pg/mL (200-900)
== END 2024-06-17 10:20 | disposition home or self-care (01) ==
LOC: HO.HHCL 10:19
PROVIDERS: Visit Provider Internal Medicine
DX: R42 Dizziness and giddiness (principal); Z13.1 Encounter for screening for diabetes mellitus; Z13.29 Encounter for screening for other suspected endocrine disorder
CPT/HCPCS: 36415; 80053; 80061; 82306; 82607; 82746; 83036; 84443; 85025

== ENCOUNTER 2024-08-08 14:57 | Outpatient (AMB) | payer OTHER, SELFPAY ==
[2024-08-08 15:13] VITALS: BP 120/56; PULSE 68; O2SAT 99; BMI 37.3
--- NOTE | 2024-08-08 15:13 | A.OFFVIS_ITS ---
Vital Signs 08/08/24 15:13 Height 5 ft 5 in Weight 224 lb 6.889 oz BMI 37.3 BP 120/56 L Blood Pressure Location Lt brachial Position Sitting Pulse 68 Pulse Source Pulse Oximeter Pulse Oximetry (%) 99 Oxygen Delivery Method Room Air Intake Visit Reasons: 2 month f/u Intake Note: Emiliana presents in office today for a scheduled 2 mos FUV. CC; Emiliana was rx'd multiple medications at their last visit. Pt underwent H Pylori treatment, as well as receiving zofran PRN, senna, pepto PRN, and omeprazole. Pt is not taking any of the prescribed medications besides the antibiotics which she took to completion. Pt reports that she has been doing much better since her last visit, however; she is still having some mild to moderate reflux sx. [employer] Required: Yes [employer] Services: [employer] Offered & Declined [employer] Name: Family Information Interpreted: non-clinical & clinical Accompanied by: Family/Other Allergies Seasonal Allergies Allergy (Intermediate, Verified 08/08/24 15:15) Watery Eye HPI HPI 2 month f/u: Details: LAST VISIT Helicobacter pylori (H. pylori) Tubular adenoma of colon Postprandial abdominal bloating GERD (gastroesophageal reflux disease) IBS (irritable bowel syndrome) Status post colonoscopy Plan Patient is on chemotherapy medication and we will try to place her on PPI for 2 weeks just to eradicate bacteria along with metronidazole and tetracycline. Patient will take her chemotherapy medication before 07:00 and will take PPI 2-3 hours later just before eating meal with antibiotics. Patient will be given nausea medicine to help if she will have trouble tolerating the treatment. The importance of finishing all of her treatment was stressed with patient. We will need to retest for eradication of the bacteria. We can continue treating had with H2 junior instead of PPI. Patient will start taking senna to help her evacuate her bowels. Increase fluid intake and activity to promote better bowel motility. Avoid dietary triggers and late night snacking. Staying upright for minimum 3 hours after meals discussed with patient. I will see her in 2 months, sooner on as needed basis. Patient is agreeable to this plan and verbalizes understanding of instructions. She was given the opportunity to ask questions and all questions answered. ? Thank you for allowing me to participate in her care Medications New bismuth subsalicylate 2 tabs PO QID 112 tabs 0RF 14 days A04.8 metronidazole 1,000 mg (2 x 500 mg) PO BID 56 tabs 0RF A04.8 tetracycline 1,000 mg (2 x 500 mg) PO Q12H 56 caps 0RF A04.8 omeprazole 20 mg PO BID 28 caps 0RF 14 days A04.8, K21.9 ondansetron 4 mg PO Q8H PRN 20 tabs 0RF nausea and vomiting R11.0 sennosides (Natural Senna Laxative) 17.2 mg (2 x 8.6 mg) PO BEDTIME 60 tabs 3RF constipation K59.00 TODAY'S VISIT Patient is here today for follow-up. Patient reports that she has been feeling much better. However she continues to have occasional acid reflux depending on what she eats. Patient reports that she is moving her bowels better now. Currently not taking any PPI or H2 junior. Patient continues to see oncologist and takes her chemo medication as prescribed. Patient reports occasional nausea which she uses Zofran for. Patient denies any dyspepsia, dysphagia or odynophagia. Patient denies any abdominal pain or discomfort. Patient denies any melena, hematochezia, unintentional weight loss or ribbon like stools. [facility] Medical History Tubular adenoma of colon Helicobacter pylori (H. pylori) Abnormal endoscopy of upper gastrointestinal tract CML (chronic myelocytic leukemia) Cataract fragments in eye following surgery Migraine HTN (hypertension) Osteoarthritis Surgical History H/O colonoscopy Hx of tubal ligation Hx of cholecystectomy Hx of section Family History Mother Diabetes Father Stroke Brother Diabetes Asthma Brother Prostate cancer Social History Household Members: None Housing: Apartment Alcohol intake: never Patient Tobacco Use Status: Never used Tobacco Years Smoked: 10 e-Cigarette/Vaping Use: Never Used service: No Current occupational status: unemployed Review of Systems Const Denies weight gain and Denies weight loss ENT Reports no additional complaints, Denies dysphagia and Denies odynophagia Card Reports no additional complaints Resp Reports no additional complaints GI Denies abdominal pain, Denies belching, Denies melena, Denies bloating, Denies change in bowel habits, Denies dysphagia, Denies excessive flatus, Denies dyspepsia, Denies heartburn, Denies diarrhea, Denies loose stools, Denies nausea, Denies odynophagia and Denies vomiting Musc Reports no additional complaints Neuro Reports no additional complaints Psych Reports no additional complaints Endo Reports no additional complaints Physical Exam Vital Signs: Last Vital Signs Pulse 68 08/08/24 15:13 BP 120/56 L 08/08/24 15:13 Pulse Ox 99 08/08/24 15:13 Oxygen Delivery Method Room Air 08/08/24 15:13 BMI result Body Mass Index 37.3 Const General: healthy appearing and no acute distress Nutritional Appearance: obese Orientation/consciousness: patient oriented x3 Resp Effort & Inspection: normal respiratory effort, able to speak in complete sentences, no tracheal deviation and symmetric chest movement Auscultation: clear to auscultation bilaterally Cardio Rate: regular rate GI Inspection: Yes normal to inspection, No distended and Yes obesity Palpation (GI): Soft to palpation, not firm, nontender and No hepatosplenomegaly present Auscultation: normal bowel sounds General: Yes no CVA tenderness Back/Spine/Pelvis Back: no CVA tenderness Skin General skin exam: elasticity normal, turgor normal and dry skin Neuro General: patient oriented x3 Psych Appearance: grossly normal Mental Status: mental status grossly normal Assessment & Plan Assessment & Plan (1) Helicobacter pylori (H. pylori): Code(s): A04.8 - Other specified bacterial intestinal infections Category: Medical (2) GERD (gastroesophageal reflux disease): Code(s): K21.9 - Gastro-esophageal reflux disease without esophagitis Qualifiers: Esophagitis presence: esophagitis presence not specified Qualified Code(s): K21.9 - Gastro-esophageal reflux disease without esophagitis (3) IBS (irritable bowel syndrome): Code(s): K58.9 - Irritable bowel syndrome without diarrhea Qualifiers: Irritable bowel syndrome type: without diarrhea Qualified Code(s): K58.9 - Irritable bowel syndrome without diarrhea (4) Postprandial abdominal bloating: Code(s): R14.0 - Abdominal distension (gaseous) Plan Will repeat breath test today to ensure eradication with previous treatment. Discussed with patient avoiding dietary triggers and late night snacking. Staying upright minimum 3 hours after meals discussed with patient. Patient is agreeable to this plan and verbalizes understanding of instructions. She was given the opportunity to ask questions and all questions answered. Thank you for allowing me to participate in her care Orders: Orders H Pylori Breath Test 08/10/24 K21.9 - Gastro-esophageal reflux disease without esophagitis Coding Level of Care Code Est Pt Level 3 (01323) Diagnoses Helicobacter pylori (H. pylori) A04.8 Gastroesophageal reflux disease, unspecified whether esophagitis present K21.9 Esophagitis presence: esophagitis presence not specified Irritable bowel syndrome without diarrhea K58.9 Irritable bowel syndrome type: without diarrhea Postprandial abdominal bloating R14.0 Time Spent (min) 25 Comment 15 minutes spent with patient and additional 10 minutes spent reviewing her records
== END 2024-08-08 15:48 | disposition home or self-care (01) ==
PROVIDERS: PCP Internal Medicine; Visit Provider Nurse Practitioner Family
DX: A04.8 Other specified bacterial intestinal infections (principal); K21.9 Gastro-esophageal reflux disease without esophagitis; K58.9 Irritable bowel syndrome, unspecified; R14.0 Abdominal distension (gaseous)
CPT/HCPCS: 99213

== ENCOUNTER → 2024-08-08 14:57 | Outpatient (BNVA) | payer OTHER, SELFPAY | PROVIDERS: PCP Internal Medicine; Visit Provider Nurse Practitioner Family | DX: A04.8 Other specified bacterial intestinal infections (principal); K21.9 Gastro-esophageal reflux disease without esophagitis; K58.9 Irritable bowel syndrome, unspecified; R14.0 Abdominal distension (gaseous) | CPT/HCPCS: 99212 ==

== ENCOUNTER 2024-08-10 11:57 | Outpatient (REF) | payer OTHER, SELFPAY ==
[2024-08-11 11:52] LABS: H Pylori Breath Test Negative (Negative)
== END 2024-08-10 11:58 | disposition home or self-care (01) ==
LOC: HO.LNP 11:57
PROVIDERS: PCP Internal Medicine; Visit Provider Nurse Practitioner Family
DX: K21.9 Gastro-esophageal reflux disease without esophagitis (principal)
CPT/HCPCS: 83013; 99211

== ENCOUNTER 2024-08-10 11:57 | Outpatient (AMB) | payer OTHER, SELFPAY ==
--- NOTE | 2024-08-10 12:44 | AM.OFFVISNUR ---
Intake Visit Reasons: H.pylori Allergies Seasonal Allergies Allergy (Intermediate, Verified 08/08/24 15:15) Watery Eye Nursing Note Patient presents for collection of H Pylori breath test. Patient has been fasting for 1 hour (nothing to eat, drink, no chewing gum or smoking) has not taken any antacid medication for at least 2 weeks and has no allergies to artificial sweeteners.?? Assessment & Plan Assessment & Plan (1) Helicobacter pylori (H. pylori): Code(s): A04.8 - Other specified bacterial intestinal infections Category: Medical Plan Patient presents for collection of H Pylori breath test. Patient has been fasting for 1 hour (nothing to eat, drink, no chewing gum or smoking) has not taken any antacid medication for at least 2 weeks and has no allergies to artificial sweeteners.???This test checks for an overgrowth of bacteria in your stomach. We all have bacteria but some may have more than others. It is treatable. if the test comes back negative there is nothing else to do. If the test result is positive we will treat you with 2 antibiotics and a medication to decrease the acid in your stomach (PPI) for 2 weeks. Two weeks after you have completed the treatment we will retest you to make sure the overgrowth has resolved. Patient Instructions: Process for specimen collection and reason for testing was explained to the patient. Specimen collection. Patient instructed to take a deep breath and then exhale into the blue bag, filling it up as much as possible. Patient instructed to drink a mixture of water and the artificial sweetener with a straw. A 15 minute wait period was observed. Patient instructed to take a deep breath and then exhale into the pink bag, filling it up as much as possible.??
== END 2024-08-10 12:43 | disposition home or self-care (01) ==
LOC: HO.HGI 11:57
PROVIDERS: PCP Internal Medicine; Visit Provider Nurse Practitioner Family
DX: A04.8 Other specified bacterial intestinal infections (principal)

== ENCOUNTER 2024-09-16 10:59 | Outpatient (REF) | payer OTHER, SELFPAY | END 2024-09-16 11:00 | disposition home or self-care (01) | LOC: HO.MAMMO 10:59 | PROVIDERS: PCP Internal Medicine; Visit Provider Internal Medicine | DX: Z13.89 Encounter for screening for other disorder (principal) ==

== ENCOUNTER 2024-09-19 18:10 | Outpatient (REF) | payer OTHER, SELFPAY | END 2024-09-19 18:11 | disposition home or self-care (01) | LOC: HO.HHCLNP 18:10 | PROVIDERS: Visit Provider Nurse Practitioner Family | DX: R30.0 Dysuria (principal) | CPT/HCPCS: 87086 ==

== ENCOUNTER 2024-10-24 15:25 | Outpatient (REF) | payer OTHER, SELFPAY ==
--- NOTE | ~2024-10-24 | MM_ITS ---
EXAMINATION: MM SCREENING DIGITAL BREAST TOMOSYNTHESIS, BILATERAL CLINICAL INFORMATION: Screening. Asymptomatic. COMPARISON: Mammography: Comparison is made with available priors TECHNIQUE: Digital breast mammography with tomosynthesis is performed in both the craniocaudal and mediolateral oblique views along with computer-aided detection (CAD). FINDINGS: There are scattered areas of fibroglandular density (ACR BI-RADS breast composition Category b). There are no significant masses, abnormal calcifications, or other abnormalities. MM/MM tomosynthesis screening BI IMPRESSION: No mammographic evidence of malignancy. ASSESSMENT: BI-RADS BI-RADS 1 - Negative RECOMMENDATION: Routine annual mammography screening. 1 year F/U This examination should not preclude the clinical evaluation of a suspicious palpable abnormality. This patient's information was entered into a reminder system with a target due date for their next mammogram. Electronically signed by: Nataliia Reagan DO 10/31/2024 10:44 AM SHANDA
== END 2024-10-24 15:26 | disposition home or self-care (01) ==
LOC: HO.MAMMO 15:25
PROVIDERS: PCP Internal Medicine; Visit Provider Internal Medicine
DX: Z12.31 Encounter for screening mammogram for malignant neoplasm of breast (principal)
CPT/HCPCS: 77063; 77067

== ENCOUNTER → 2024-10-24 16:00 | Outpatient (BNV) | payer OTHER, SELFPAY | PROVIDERS: PCP Internal Medicine; Visit Provider Internal Medicine | DX: Z12.31 Encounter for screening mammogram for malignant neoplasm of breast (principal) | CPT/HCPCS: 77063; 77067 ==

== ENCOUNTER 2025-02-02 13:24 | Outpatient (AMB) | payer OTHER, SELFPAY ==
--- NOTE | 2025-02-02 13:45 | MHC.OFFVIS ---
Vital Signs 02/02/25 13:46 Height 5 ft 5 in Weight 227 lb 15.327 oz BMI 37.9 BP 118/58 L Blood Pressure Location Rt brachial Position Sitting Pulse 66 Pulse Source Pulse Oximeter Pulse Oximetry (%) 97 Oxygen Delivery Method Room Air Intake Visit Reasons: 6 mnth follow up Intake Note: ESTABLISHED PATIENT for mgmt of GERD. Chief Complaint; C/O Reflux w/o dysphagia, epigastric pain, RLQ pain w/ associated constipation, pt denies signs or sx of hemorrhoids. No additional concerns at this time. Water Quality Specialist Required: Yes Water Quality Specialist Services: Water Quality Specialist Present Water Quality Specialist Name: [facility] [place] Liyah Mcallister [id number] Information Interpreted: clinical only Accompanied by: Self / Same As Patient Allergies Seasonal Allergies Allergy (Intermediate, Verified 02/02/25 14:02) Watery Eye HPI HPI 6 mnth follow up: Details: LAST VISIT Helicobacter pylori (H. pylori) GERD (gastroesophageal reflux disease) IBS (irritable bowel syndrome) Postprandial abdominal bloating Plan Will repeat breath test today to ensure eradication with previous treatment. Discussed with patient avoiding dietary triggers and late night snacking. Staying upright minimum 3 hours after meals discussed with patient. Patient is agreeable to this plan and verbalizes understanding of instructions. She was given the opportunity to ask questions and all questions answered. ? Thank you for allowing me to participate in her care Orders Orders H Pylori Breath Test 08/10/24 K21.9 Laboratory Tests 08/10/24 12:21 H. pylori Breath Test Negative TODAY'S VISIT: patient is here today for follow-up. Patient is accompanied by her daughter. physical education department chair used during the visit. Patient reports that she has been doing significantly better. Epigastric pain and acid reflux has been controlled with food. Patient is unable to take any PPI due to her treatment for chemotherapy. Patient previously treated for H pylori and retested. Negative. Patient reports that she is moving her bowels well. Denies any melena, hematochezia, unintentional weight loss or ribbon like stools. Patient is unsure how long she will be on her chemotherapy drug. Patient has been on it for 2 years. Patient follows with Dr. Pérez. She is due to go for colonoscopy again large amount of polyps, however 1 polyp showed tubular adenoma without high-grade dysplasia or carcinoma. Patient should also go for upper endoscopy. [facility] Medical History Tubular adenoma of colon Helicobacter pylori (H. pylori) Abnormal endoscopy of upper gastrointestinal tract CML (chronic myelocytic leukemia) Cataract fragments in eye following surgery Migraine HTN (hypertension) Osteoarthritis Surgical History H/O colonoscopy Hx of tubal ligation Hx of cholecystectomy Hx of section Family History Mother Diabetes Father Stroke Brother Diabetes Asthma Brother Prostate cancer Social History Household Members: None Housing: Apartment Alcohol intake: never Patient Tobacco Use Status: Never used Tobacco Years Smoked: 10 e-Cigarette/Vaping Use: Never Used service: No Current occupational status: unemployed Physical Exam Vital Signs: Last Vital Signs Pulse 66 02/02/25 13:46 BP 118/58 L 02/02/25 13:46 Pulse Ox 97 02/02/25 13:46 Oxygen Delivery Method Room Air 02/02/25 13:46 BMI result Body Mass Index 37.9 Const General: healthy appearing and no acute distress Nutritional Appearance: obese Orientation/consciousness: patient oriented x3 Resp Effort & Inspection: normal respiratory effort, able to speak in complete sentences, no tracheal deviation and symmetric chest movement Auscultation: clear to auscultation bilaterally Cardio Rate: regular rate GI Inspection: Yes normal to inspection, No distended and Yes obesity Palpation (GI): Soft to palpation, not firm, nontender and No hepatosplenomegaly present Auscultation: normal bowel sounds General: Yes no CVA tenderness Back/Spine/Pelvis Back: no CVA tenderness Skin General skin exam: elasticity normal, turgor normal and dry skin Neuro General: patient oriented x3 Psych Appearance: grossly normal Mental Status: mental status grossly normal Assessment & Plan Assessment & Plan (1) Helicobacter pylori (H. pylori): Code(s): A04.8 - Other specified bacterial intestinal infections Category: Medical (2) GERD (gastroesophageal reflux disease): Code(s): K21.9 - Gastro-esophageal reflux disease without esophagitis Qualifiers: Esophagitis presence: esophagitis presence not specified Qualified Code(s): K21.9 - Gastro-esophageal reflux disease without esophagitis (3) IBS (irritable bowel syndrome): Code(s): K58.9 - Irritable bowel syndrome, unspecified (4) Postprandial abdominal bloating: Code(s): R14.0 - Abdominal distension (gaseous) (5) Tubular adenoma of colon: Code(s): D12.6 - Benign neoplasm of colon, unspecified Category: Medical (6) Screen for colon cancer: Code(s): Z12.11 - Encounter for screening for malignant neoplasm of colon Plan Patient will continue avoiding dietary triggers and late night snacking. Staying upright for minimum 3 hours after meals discussed with patient. Patient can take Benefiber with pre and probiotics. Message sent to surgical schedulers to book procedure for patient. What to expect before during and after procedure discussed with her. Stressed the importance of good bowel prep and clear liquid diet day before procedure. Patient will also be sent for upper endoscopy. Endoscopy year ago showed H pylori. Patient is unable to be on PPI due to her chemotherapy treatment. I will see patient after the procedure, sooner on as needed basis. Patient is agreeable to this plan and verbalizes understanding of instructions. She was given the opportunity to ask questions and all questions answered. Thank you for allowing me to participate in her care Medications: New bisacodyl (Dulcolax (bisacodyl)) take 4 tabs at noon the day before your colonoscopy 20 mg (4 x 5 mg) PO ONCE 1 day 4 tabs 0RF Z12.11 - Encounter for screening for malignant neoplasm of colon polyethylene glycol 3350 (Miralax) As directed by gastroenterology department at [facility] 238 grams PO ONCE 238 grams 0RF Z12.11 - Encounter for screening for malignant neoplasm of colon Coding Level of Care Code Est Pt Level 4 (64872) Complex EM visit Add On G2211 Diagnoses Helicobacter pylori (H. pylori) A04.8 Gastroesophageal reflux disease, unspecified whether esophagitis present K21.9 Esophagitis presence: esophagitis presence not specified IBS (irritable bowel syndrome) K58.9 Postprandial abdominal bloating R14.0 Tubular adenoma of colon D12.6 Screen for colon cancer Z12.11 Time Spent (min) 35 Comment 25 minutes spent with patient and additional 10 minutes spent reviewing her records
[2025-02-02 13:46] VITALS: BP 118/58; PULSE 66; O2SAT 97; BMI 37.9
--- OUTSIDE RECORDS SUMMARY | 2025-02-02 16:59 | XMS_ITS | Encounter Summary ---
Author Organization [facility] Address [address] [place] [address] Care Team Providers Care Assistant Superintendent For Curriculum Name Role Phone Misty Ornelas MD Primary Care Provide r Reason for Visit * Reason Onset Date Comments Appointment Request 12/15/2023 Encounter Details Date Type Department Care Team (Late st Contact Info) Description 12/15/2023 Telephone [facility] [address] [place] [address] Misty Ornelas MD [address] [place], [place] [phone] Appointment Request Social History Tobacco Use Types Packs/Day Years Used Date Smoking Tobacco: Never Passive Smoke Exposure: Never Smokeless Tobacco: Never Depression Answer Date Recorded Patient Health Questionnaire-9 Score 0 03/04/2023 Housing Stability Answer Date Recorded What is your housing situation today? I have louann palacios 09/10/[address] you li ve. Do you have problems with any of the following? None of the above 09/10/2023 Food Insecurity Answer Date Recorded Within the past 12 months, y ou worried that your food would run out before you got money to buy more: Never True 09/10/2023 Within the past 12 months,th e food you bought just didn't last and you didn't have enough money to get more: Never True Transportation Answer Date Recorded In the past 12 months, has l ack of transportation kept you from medical appts, meetings, work or from getting things needed for daily living? No 09/10/2023 Utilities Answer Date Recorded In the past 12 months, has t he electric, gas, oil or water company threatened to shut off services in your home? No 09/10/2023 Depression Answer Date Recorded Patient Health Questionnaire-2 Score 0 03/04/2023 Comments Unknown Sex and Gender Information Value Date Recorded Sex Assigned at Female 09/22/2022 10:23 AM EDT Legal Sex Female 10:23 AM EDT Gender Identity Female 09/22/2022 10:23 AM EDT Sexual Orientation Don't know 09/22/2022 10 :23 AM EDT documented as of this encounter Miscellaneous Notes * Telephone Encounter - Noemi Thomas - 12/15/2023 10:25 AM EST Tc from [facility] and pt requesting appt with PCP, Jason is requesting appt due to a diagnosis ptneeds to be add on her chart. Please contact Jason [phone]. documented in this encounter Plan of Treatment Upcoming Encounters Date Type Department Care Team (Late st Contact Info) Description 02/17/2025 10:15 AM EDT Procedure Visit [facility] [address] [place] [address] Misty Ornelas MD [address] [place] [address] documented as of this encounter Visit Diagnoses Not on filedocumented in this encounter Additional Health Concerns Assessment Noted Time PHQ-9 Depression Total Score: 0 03/04/20 23 9:52 AM EDT documented as of this encounter Care Teams Assistant Superintendent For Curriculum Relationship Specialty Start Date End Date Misty Ornelas MD [address] [place] [address] PCP - General Family Medicine 01/19/20 documented as of this encounter
--- OUTSIDE RECORDS SUMMARY | 2025-02-02 17:00 | XMS_ITS | Clinical Summary ---
Author Organization [employer] Address [address] [place] [address] Care Team Providers Care Manager Environmental Affairs Name Role Phone Misty Ornelas MD Primary Care Provide r Allergies Active Allergy Reactions Criticality Noted Date Comments Pollen Extract Runny nose High 05/05/2023 Other Reaction(s): Watery Eye Medications carvedilol (Coreg) 6.25 MG tabletIndication s:Essential hypertension Take 1 tablet (6.25 mg) by mouth with breakfast and with evening meal. 60 tablet 1 3 Active carvedilol (Coreg) 12.5 MG tabletIndication s:Essential hypertension TAKE 1 TABLET (12.5 MG) BY MOUTH WITH BREAKFAST AND EVENING MEAL 180 tablet 3 4 Active dasatinib (Sprycel) 100 MG chemo tablet Take 100 mg by mouth Once per day. 4 Active chlorhexidine (Peridex) 0.12 % solution Swish 15 mL morning and night for 1 minute. Spit, do not swallow. Do not eat or drink for 30 minutes following use. 473 mL 4 Active losartan (Cozaar) 50 MG tabletIndication s:Essential hypertension TAKE 1 TABLET BY MOUTH TWICE A DAY 180 tablet 1 4 Active chlorthalidone (Hygroton) 50 MG tablet TAKE 1 TABLET BY MOUTH EVERY DAY IN THE MORNING 90 tablet 1 4 Active D-1000 Extra Strength 25 MCG (1000 UT) tabletIndication s:Vitamin D deficiency TAKE 1 TABLET (25 MCG) BY MOUTH ONCE PER DAY. 90 tablet 5 Active omeprazole (PriLOSEC) [address] capsuleIndicatio ns:Blood in stool,Generalize d abdominal pain TAKE 1 CAPSULE BY MOUTH DAILY BEFORE BREAKFAST.. DO NOT CRUSH OR CHEW 90 capsule 5 Active cefadroxil (Duricef) 500 MG capsuleIndicatio ns:Abscess Take 1 capsule (500 mg) by mouth 2 times daily. 10 capsule 5 Active tetracycline 500 MG capsule Take 1,000 mg by mouth every 12 (twelve) hours. 4 025 Discontinu ed(Therapy completed) metroNIDAZOLE (Flagyl) 500 MG tablet Take 1,000 mg by mouth 2 times daily. 4 025 Discontinu ed(Therapy completed) doxycycline (Vibra-Tabs) 100 MG tabletIndication s:Abscess Take 1 tablet (100 mg) by mouth 2 times daily for 5 days. Take with a full glass of water and do not lie down for at least 30 minutes after. 10 tablet 5 025 hydrocortisone 1 % creamIndications :Skin pruritus Apply topically if needed (itching) for up to 7 days. Up to 4 times daily. Do not apply to open wounds. 28 g 5 025 Active Problems Problem Noted Date Diagnosed Date Dental calculus 07/11/2024 Symptomatic apical periodontitis 07/11/2024 Vitamin D deficiency 06/18/2024 Dizziness 06/17/2024 Assessment & Plan (06/18/2024 9:13 AM EDT): Likely multifactorial I advise to talk to hematology/oncology about her anemia, she tells me she hopes she does not need iron supplements because it does not sit well on her stomach I advise to drink more water and change positions slowly I advise healthy diet with a diet rich in iron (proteins, vegetables, beans, lentils) She knows she has being refer to ENT I will prescribe meclizine to see if it helps the days that she has more dizziness RTC if further concerns Assessment & Plan (06/17/2024 8:23 PM EDT): Likely multifactorial, possible anemia, I advise proper hydration, change position slowly Blood work ordered, I will f/u with patient to talk about results, ENT referral Blood in stool 03/08/2024 Assessment & Plan (03/18/2024 10:49 AM EDT): Patient has her colonoscopy schedule soon, I advise not to miss it Assessment & Plan (03/08/2024 3:13 PM EDT): As above do not miss appointments with GI and hematology Extensive counseling about ED precautions done, if she has fever again or feels more dizzy or have more blood in the stools she will have to go to emergency room or call ambulance for further evaluation and management UTI symptoms 03/08/2024 Assessment & Plan (03/08/2024 3:12 PM EDT): In light of possible fever and CML patient I will like to cover her with ciprofloxacin 500mg BID labs ordered also UA done and send to culture Abdominal pain 03/08/2024 Generalized abdominal pain 03/08/2024 Assessment & Plan (03/08/2024 3:11 PM EDT): I advise to be mindfully with diet Omeprazole prescribed today She has an appointment with GI on 03/14/24, it is her appointment before her colonoscopy on 03/28/24 I advise not to miss this appointment and to let them know what is happening Viral upper respiratory tract infection 01/18/20 Assessment & Plan (01/18/2024 1:31 PM EST): I advise to drink plenty of fluids and rest Dysuria 01/18/2024 Assessment & Plan (09/20/2024 5:20 PM EDT): Ua inconclusive and pt reports smyptoms are mild and not consistent, Will await for culture results to treat if needed Pt aware to report worsening symptoms Assessment & Plan (01/18/2024 1:33 PM EST): UA and culture Patient will be contacted with results Chronic pain of right knee 01/18/2024 Assessment & Plan (01/18/2024 1:31 PM EST): Acetaminophen PRN XRAY ordered Cough in adult 01/18/2024 Assessment & Plan (01/18/2024 1:32 PM EST): Order CXR, patient with persistent cough, h/o fever and immunodepress Varicose veins of left lower extremity with raymundo a 05/25/2023 Assessment & Plan (05/25/2023 3:42 PM EDT): compression stockings with zipper Leg edema, left 05/25/2023 CML (chronic myelocytic leukemia) 05/25/2023 Assessment & Plan (03/18/2024 10:48 AM EDT): Continue to follow with oncology Assessment & Plan (05/25/2023 3:42 PM EDT): Patient will be follow closely by hematology Thrombocytosis 03/04/2023 Assessment & Plan (03/04/2023 10:29 AM EDT): Patient with persistent thrombocytosis and hypercalcemia with PTH WNL I will refer her again to hematology Health care maintenance 03/04/2023 Assessment & Plan (03/04/2023 10:30 AM EDT): Upcoming appointment for mammogram Colonoscopy referral today Labs ordered today Colon cancer screening 03/04/2023 Acute urinary tract infection 02/05/2023 Chronic maxillary sinusitis 02/05/2023 Essential hypertension 02/05/2023 Assessment & Plan (03/18/2024 10:48 AM EDT): - Aerobic exercise to reduce BP. Initial goal of 30 min walk 3-5x/week. Increase as tolerated. - low-sodium diet (goal: <2g/day) and heart healthy diet such as DASH to reduce BP and prevent ASCVD. - Home BP monitoring 1-2 x day with goal of <140/90. - Seek immediate medical attention for chest pain, palpitations, SOB, syncope, or sudden changes in mental status. - Do not change or discontinue current prescriptions without first consulting health care provider Assessment & Plan (01/18/2024 1:30 PM EST): - Aerobic exercise to reduce BP. Initial goal of 30 min walk 3-5x/week. Increase as tolerated. - low-sodium diet (goal: <2g/day) and heart healthy diet such as DASH to reduce BP and prevent ASCVD. - Home BP monitoring 1-2 x day with goal of <140/90. - Seek immediate medical attention for chest pain, palpitations, SOB, syncope, or sudden changes in mental status. - Do not change or discontinue current prescriptions without first consulting health care provider Assessment & Plan (05/25/2023 3:41 PM EDT): Patient will log her BP at home and come back for nurse visit for possible medication adjustment Assessment & Plan (03/04/2023 10:28 AM EDT): Maintenance: BMP: ordered today Lipid Panel: ordered today ASCVD Risk: Calculate pending -Today BP is high I added carvedilol 6.25mg BID, c/w losartan 50mg BID - Aerobic exercise to reduce BP. Initial goal of 30 min walk 3-5x/week. Increase as tolerated. - low-sodium diet (goal: <2g/day) and heart healthy diet such as DASH to reduce BP and prevent ASCVD. - Home BP monitoring 1-2 x day with goal of <140/90. - Seek immediate medical attention for chest pain, palpitations, SOB, syncope, or sudden changes in mental status. - Do not change or discontinue current prescriptions without first consulting health care provider -RTC 2 weeks nurse visit for BP check if BP is not at goal plan is to increase carvedilol dose then 3 months with me Heartburn 02/05/2023 Multiple joint pain 02/05/2023 Pain in lower limb 02/05/2023 Encounters Date Type Department Care Team Description 01/20/2025 Telephone [facility] [address] [place] [address] Araceli Clark ANP 01/17/2025 2:00 PM EST Office Visit [facility] [address] [place] [address] Araceli Clark ANP Abscess (Primary Dx); Skin pruritus 12/24/2024 Refill [facility] [address] [place] [address] Misty Ornelas MD Blood in stool; Generalized abdominal pain 12/23/2024 Refill [facility] [address] [place] [address] Misty Ornelas MD Vitamin D deficiency 11/28/2024 Telephone [facility] [address] [place] [address] Misty Ornelas MD Med Refill 11/11/2024 Refill [facility] [address] [place], [place] [phone] Misty Ornelas MD Essential hypertension from Last 3 Months Immunizations Name Administration Dates Next Due Influenza injectable quadrivalent preservative f ree 09/17/2021 Influenza, IIV3, injectable 09/21/2019, 7 Tdap 10/13/2017 Social History Tobacco Use Types Packs/Day Years Used Date Smoking Tobacco: Never Passive Smoke Exposure: Never Smokeless Tobacco: Never Tobacco Cessation:Counseling Given: Not Answered Alcohol Use Standard Drinks/Week Comments Never 0 (1 standard drink = 0.6 oz pur e alcohol) Alcohol Answer Date Recorded Frequency of Alcohol Consumption Not on file 06/17/2024 Average Number of Drinks Not on file 024 Frequency of Binge Drinking Not on file 05/24 Score 0 06/17/2024 Depression Answer Date Recorded Patient Health Questionnaire-9 Score 0 03/18/2024 Patient Health Questionnaire-9 Score 0 03/18/2024 Last PHQ-9: Questionnaire Data Not on file 0 03/18/2024 Housing Stability Answer Date Recorded What is your housing situation today? I have louann philip 09/10/[address] you li [...] Date Recorded Patient Health Questionnaire-2 Score 0 03/18/2024 Comments Unknown Sex and Gender Information Value Date Recorded Sex Assigned at Female 09/22/2022 10:23 AM EDT Legal Sex Female 10:23 AM EDT Gender Identity Female 09/22/2022 10:23 AM EDT Sexual Orientation Don't know 09/22/2022 10 :23 AM EDT Last Filed Vital Signs Vital Sign Reading Time Taken Comments Blood Pressure 121/76 01/17/2025 2:11 PM EST Pulse 75 01/17/2025 2:11 PM EST Temperature 36.8 ??C (98.2 ??F) 01/17/2025 2:11 PM ES T Respiratory Rate 16 01/17/2025 2:11 PM EST Oxygen Saturation 95% 01/17/2025 2:11 PM EST Inhaled Oxygen Concentration - - Weight 104 kg (228 lb 12.8 oz) 01/17/2025 2:11 P M EST Height 165.1 cm (5' 5 ) 06/17/2024 9:31 AM EDT Body Mass Index 38.07 06/17/2024 9:31 AM EDT Plan of Treatment Upcoming Encounters Date Type Department Care Team (Late st Contact Info) Description 02/17/2025 10:15 AM EDT Procedure Visit [facility] [address] [place] [address] Misty Ornelas MD [address] [place] [address] Health Maintenance Due Date Last Done Comments CT Colonography 1960 Colonoscopy 1960 Colorectal Cancer Screening 1960 Dental Oral Exam 1960 Dental Prophylaxis 1960 Dental X-Ray: Full Mouth 1960 FIT DNA/Cologuard 1960 FIT 1960 FOBT 1960 Sigmoidoscopy 1960 Hepatitis A Vaccines (1 of 2 - Risk 2-dose series) 1979 Pneumococcal Vaccine: 50+ Years (1 of 2 - PCV) 1979 Zoster Vaccines (1 of 2) 1979 Pap Smear 1981 Hepatitis B Vaccines (1 of 3 - Risk 3-dose series) 2020 RSV Patients and Patients Aged 60 years or older (1 - Risk 60-74 years 1-dose series) 2020 COVID-19 Vaccine ( - season) 2024 10/28/2021, 03/04/2021 Influenza Vaccine (#1) 2024 , 09/21/2019, 10/13/2017 SDOH Screening 01/06/2025 01/06/2024 Cervical Cancer Screening 02/01/2025 HPV/Cotest 02/01/2025 02/02/2020 Depression Screening 03/18/2025 03/18/2024, 03/18/20 24 Alcohol/Substance Use Screening 06/17/2025 06/17/2024 Dental X-Ray: Bitewings 07/12/2025 07/11/2024 Mammogram 10/24/2025 10/24/2024, 09/23, 04/01/2023, Additional history exists Tobacco Screening 01/17/2026 01/17/2025 DTaP/Tdap/Td Vaccines (2 - Td or Tdap) 10/13/2027 10/13/2017 Lipid Panel 06/17/2029 06/17/2024, 02/21, 09/23/2021, Additional history exists HIV Screening Completed 01/24/2020 Hepatitis C Screening Completed 02/02/2020 HIB Vaccines Aged Out No longer eligi ble based on patient's age to complete this topic HPV Vaccines Aged Out No longer eligi ble based on patient's age to complete this topic IPV Vaccines Aged Out No longer eligi ble based on patient's age to complete this topic Meningococcal Vaccine Aged Out No jonna israel eligible based on patient's age to complete this topic RSV under 20 months Aged Out No longe r eligible based on patient's age to complete this topic Rotavirus Vaccines Aged Out No longer eligible based on patient's age to complete this topic Procedures Procedure Name Priority Date/Time Associated Diagnosis Comments BI MAMMOGRAM SCREENING TOMOSYNTHESIS BILATERAL Routine 10/24/2024 3:30 PM EST BITEWING - SINGLE RADIOGRAPHIC IMAGE Routine 07/11/2024 1:00 PM EDT LIPID PANEL WITH REFLEX TO DIRECT LDL Routine 06/17/2024 10:25 AM EDT Dizziness LIZZIE HISTORICAL HEPATITIS C ANTIBODY RFLX Routine 02/02/2020 12:30 PM EDT LIZZIE HISTORICAL HPV MRNA E6/E7 Routine 02/02/2020 11:57 AM EDT LIZZIE HISTORICAL HIV AB/AG Routine 01/24/2020 9:50 AM EST from Last 3 Months or Most Recently Relevant to Health Maintenance Results * BI Mammogram Screening Tomosynthesis Bilateral (10/24/2024 3:30 PM EST) Anatomical Region Laterality Modality Breast Bilateral Mammography 10/24/2024 3:30 PM EST Narrative 10/31/2024 10:46 AM EST ? [facility] [place] ? [address] ?[place] [id number] ? Mammography Report ? Signed ? Patient: Pedraza,Emiliana ?MR#: [id number] ? : 1960 ?Acct:[id number] ? Age/Sex: 64 / F ?ADM Date: 12/02/24 ? Loc: HO.MAMMO ? Attending Dr: Misty Tubbs MD ? Ordering Physician: Misty Ornelas MD ?Results: ?? 1Negative ? Date of Service: 10/24/24 ?Follow Up: 1 Year From Orig ?? inal Mammogram ? Procedure(s): MM tomosynthesis screening BI ?? Accession Number(s): [id number] ? cc: Misty Ornelas MD ? EXAMINATION: ?? MM SCREENING DIGITAL BREAST TOMOSYNTHESIS, BILATERAL ? CLINICAL INFORMATION: ? Screening. Asymptomatic. ? COMPARISON: ?? Mammography: Comparison is made with available priors ? TECHNIQUE: ?? Digital breast mammography with tomosynthesis is performed in both the ?? craniocaudal and mediolateral oblique views along with computer-aided ?? detection (CAD). ? FINDINGS: ?? There are scattered areas of fibroglandular density (ACR BI-RADS breast ?? composition Category b). ? There are no significant masses, abnormal calcifications, or other ?? abnormalities. ? MM/MM tomosynthesis screening BI ?? IMPRESSION: ?? No mammographic evidence of malignancy. ? ASSESSMENT: ? BI-RADS BI-RADS 1 - Negative ? RECOMMENDATION: ?? Routine annual mammography screening. ? 1 year F/U ? This examination should not preclude the clinical evaluation of a ?? suspicious palpable abnormality. ? This patient's information was entered into a reminder system with a ?? target due date for their next mammogram. ? Electronically signed by: ??Nataliia Reagan DO ??10/31/2024 10:44 AM EST ?? RP ? Dictated By: ?Nataliia Reagan DO ? Signed By: ?<Electronically signed by Nataliia Reagan, DO in OV> ? 10/31/24 1044 ? DD/ 1530 ? TD/TT: 10/24/24 1547 ? Educational Adviser: ? Procedure Note Donotuseinterpreter, Image - 10/31/2024 [facility] [address] [place] [address] Mammography Report Signed Patient: Estrella Pedraza#: [id number] : 1960Acct:[id number] Age/Sex: 64 / FADM Date: 10/24/24 Loc: HO.MAMMO Attending Dr: Misty Tubbs MD Ordering Physician: Misty Ornelas MDResults: 1Negative Date of Service: 10/24/24Follow Up: 1 Year From Orig inal Mammogram Procedure(s): MM tomosynthesis screening BI Accession Number(s): [id number] cc: Misty Ornelas MD EXAMINATION: MM SCREENING DIGITAL BREAST TOMOSYNTHESIS, BILATERAL CLINICAL INFORMATION: Screening. Asymptomatic. COMPARISON: Mammography: Comparison is made with available priors TECHNIQUE: Digital breast mammography with tomosynthesis is performed in both the craniocaudal and mediolateral oblique views along with computer-aided detection (CAD). FINDINGS: There are scattered areas of fibroglandular density (ACR BI-RADS breast composition Category b). There are no significant masses, abnormal calcifications, or other abnormalities. MM/MM tomosynthesis screening BI IMPRESSION: No mammographic evidence of malignancy. ASSESSMENT: BI-RADS BI-RADS 1 - Negative RECOMMENDATION: Routine annual mammography screening. 1 year F/U This examination should not preclude the clinical evaluation of a suspicious palpable abnormality. This patient's information was entered into a reminder system with a target due date for their next mammogram. Electronically signed by: Nataliia Reagan DO 10/31/2024 10:44 AM EST Dictated By: Nataliia Reagan DO Signed By: <Electronically signed by Nataliia Reagan DO in OV> 10/31/24 1044 DD/ 1530 TD/TT: 10/24/24 1547 Educational Adviser: us Misty Tubbs MD IMG BI PROCEDURES Fin al Result * (ABNORMAL) Lipid Panel with Reflex to Direct LDL (06/17/2024 10:25 AM EDT) Triglycerides 158(H) <150 mg/dL [facility] Comment:Desirable Triglyceri de: less than 150 mg/dLBorderline High Triglyceride 150-199 mg/dLHigh Triglyceride: 200-499 mg/dLVery High Triglyceride: greater than or equal to 5OO mg/dL Cholesterol 182 <200 mg/dL [facility] Comment:Desirable Cholestero l: less than 200 mg/dLBorderline High Cholesterol: 200-239 mg/dLHigh Cholesterol: greater than 239 mg/dL LDL Cholesterol Calculated 102(H) <100 mg/dL [facility] Comment:Desirable LDL: less than 100 mg/dLNear Optimal/Above Optimal LDL: 110- 129 mg/dLBorderline High LDL: 130-159 mg/dLHigh LDL: 160-189 mg/dLVery High LDL: greater than or equal to 190 mg/dL HDL Cholesterol 49 >40 mg/dL [facility] Comment:Desirable HDL: great er than 40 mg/dL Note: This HDL assay may give artificially low results in patients with liver disease. Blood 06/17/2024 10:2 5 AM EDT 06/17/2024 12:50 PM EDT Misty Tubbs MD LAB BLOOD ORDERABLES Final Result Performing Organization Address City/[facility]/ZIP Co de Phone Number [facility] [address] [place] [address] [phone] * HEPATITIS C ANTIBODY RFLX (02/02/2020 12:30 PM EDT) HEPATITIS C ANTIBODY NONREACTIVE NONREACTIVE [facility] Comment: Antibodies to HCV not detected; does not exclude early acute HCV infection. 02/02/2020 12:3 0 PM EDT us Misty Tubbs MD HISTORICAL/NON ORDERA BLE LABS Final Result Performing Organization Address City/[facility]/ZIP Co de Phone Number [facility] [address] * HPV mRNA E6/E7 (02/02/2020 11:57 AM EDT) HPV mRNA E6/E7 Not Detected NOT DETECTED [facility] Comment: This test was performed using the APTIMA(R) HPV Assay ([employer] This assay detects E6/E7 viral messenger RNA (mRNA) from 14 high-risk HPV types (16,18,31,33,35,39,45,51, 52,56,58,59,66,68). For additional information please refer to: http://education.clypd/faq/FCQ239r9 (This link is being provided for informational/ educational purposes only.) The analytical performance characteristics of this assay have been determined by [employer] [place], [place]. The modifications have not been cleared or approved by the FDA. This assay has been validated pursuant to the CLIA regulations and is used for clinical purposes. Test Performed by [facility], [facility], [address] [place] [address] Les Cantu M.D., Ph.D., Director of Laboratories , CLIA [id number] Please note: ??Effective 08/04/2016, HPV testing will be performed using [employer]'s APTIMA test which targets mRNA. Detecting mRNA instead of DNA, as in older methods, offers significant improvements in specificity. 02/02/2020 11:5 7 AM EDT Misty Tubbs MD HISTORICAL/NON ORDERA BLE LABS Final Result [facility] [address] * HIV AB/AG (01/24/2020 9:50 AM EST) Pathologist [facility] HIV AG/AB NONREACTIVE [facility] Comment: HIV-1 p24 Ag and/or HIV-1/HIV-2 Ab not detected. ?? A test result that is nonreactive does not exclude the possibility of exposure to or infection with HIV-1 and/or HIV-2. Nonreactive results in this assay for individuals with prior exposure to HIV-1 and/or HIV-2 may be due to antigen and antibody levels that are below the limit of detection of this assay. ?? [employer] HIV Ag/Ab Combo assay result and supplemental assay results should be interpreted in conjunction with the patient's clinical presentation, history and other laboratory results. ??If the results are inconsistent with clinical evidence, additional testing is suggested to confirm the result. 01/24/2020 9:50 AM EST Misty Tubbs MD HISTORICAL/NON ORDERA BLE LABS Final Result [facility] [address] from Last 3 Months or Most Recently Relevant to Health Maintenance Insurance [facility] - [facility] Care Teams Manager Environmental Affairs Relationship Specialty Start Date End Date Misty Ornelas MD [address] [place] [phone] PCP - General Family Medicine 01/19/20
--- OUTSIDE RECORDS SUMMARY | 2025-02-02 17:00 | XMS_ITS | Data Portability ---
Author Organization [place] - [facility], Allergy Address [address] [address] Care Team Providers Care Scheduling Agent Name Role Phone RANJIT DELCID Primary Care Provider Assessment No assessment recorded. Plan of Treatment Reminders Order Date Submit Date Provider Last Modified By Organization Details Last Modified Time Details Appointments None recorded. Lab None recorded. Referral None recorded. Procedures None recorded. Surgeries None recorded. Imaging None recorded. Medication Orders fluticasone propionate 50 mcg/actuati on nasal spray,suspe nsion 2024 025 [facility]/Pharmacy #[id number], [address] [place], [address], 5 10:49:39 clotrimazol e-betametha sone 1 %-0.05 % topical cream 2024 025 [facility]/Pharmacy #[id number], [address] [place], [address], 5 10:46:49 Patient TargetsNo targets recorded. Patient InstructionsNo instructions recorded. Reason for Referral None Reported. Results Created Date Observation Date Name Description Value Unit Range Abnormal Flag Note LastModifiedBy Organization Detail LastModifiedTime 12/06/19 25 audio gram No observ ation record ed. BARCODE Not Available 2024 13:31:17 Result Notes None recorded. Problems Name Problem SNOMED Code Status Onset Date Resolution Date Notes Provider Name and Address Organization Details Recorded Time Dizziness and giddiness 273551571 Active 2024 RADHA REYES, ARNAUD 100 [facility] [address] [facility], [place], [address], [place] - [facility] [place] 09:23:13 Dermal mycosis 32624814 Active 2024 SIMRAN MCALLISTER MD [address] [address], [place], [address], [facility] - [facility] [place] 5 10:44:49 Sensorineural hearing loss of bilateral ears 194003829 Active 2024 SIMRAN MCALLISTER MD [address] [address], [place], [address], [facility] - [facility] [place] 5 10:47:14 Allergic rhinitis 73248451 Active 2024 SIMRAN MCALLISTER MD [address] [address], [place], [address], [facility] - [facility] [place] 10:47:34 Problem Notes None recorded. Procedures Surgical History Date Name Laterality Status Provider Name and Address Organization Details Recorded Time 12/06/2024 Comp Audio with Tymps (74216 & 97736) completed ARNAUD TSAI [address] [address], [place], [address], [facility] - [facility] [place] 12/06/2024 09:22:59 Imaging Results Imaging Date Name Status LastModified by Organiz ation Details LastModified Time 12/06/2024 audiogram completed BARCODE Information no t available 12/06/2024 13:31:17 Procedure Notes None recorded. Medical Equipment None Reported. Medications Name Sig Start Date Stop Date Status Note LastModified by Organization Details LastModified Time losartan 50 mg tablet Take 1 tablet every day by oral route. active Not Available Not Available No t Available carvedilol 12.5 mg tablet Take 1 tablet twice a day by oral route. active Not Available Not Available No t Available chlorthalido ne 50 mg tablet Take 1 tablet every day by oral route. active Not Available Not Available No t Available clotrimazole -betamethaso ne 1 %-0.05 % topical cream APPLY TO THE SKIN OF THE AFFECTED EXTERNAL EAR CANAL WITH FINGERTIP 3 TIMES PER DAY FOR 2 WEEKS active Not Available Not Available No t Available fluticasone propionate 50 mcg/actuatio n nasal spray,suspen meagan INSTILL 2 SPRAYS BY INTRANASAL ROUTE EVERY DAY active Not Available Not Available No t Available dasatinib 100 mg tablet Take 1 tablet every day by oral route. active Not Available Not Available No t Available Vitals Date Recorded Body height Body mass index (BMI) Body weight Provider Name and Address Organization Details Last Updated DateTime 12/06/2024 165.1 cm 37.3 kg/m2 940646.69 g Tatiana Shaffer [place] - [facility] 12/06/2024 10:22:20 Social History None recorded. Functional Status None recorded. Mental Status None recorded. Family History Nothing Reported. Medical History Condition Response Arthritis Y Cancer Y Migraines Y Hypertension Y Gynecological HistoryNo gynecological history recorded. Obstetrics History GPAL:G 0 P 0 0 0 0 Past Encounters Encounter ID Performer Location Encounter Start Date Encounter Closed Date Diagnosis/Indication Diagnosis SNOMED-CT Code Diagnosis ICD10 Code Diagnosis Note [id number] SIMRAN MCALLISTER MD [facility] [address] [address] 12/06/2024 08:58:25 12/06/2024 10:51:48 Dermal mycosis 36107539 B36.9 The skin of the {{right le ft* bilate ral}} external auditory canal is showing signs of fungal dermatitis . Recommend applicatio n of clotrimazo le/betamet hasone cream to be applied by fingertip to the external auditory meatus three times a day for two weeks. Patient may repeat this as necessary for recurrence of symptoms. Prescripti on sent to patient's pharmacy. Avoidance of Q-tips recommende d to reduce the risk of recurrence . Physical examinatio n revealed signs of excessive Q-tip use today. Today we spent some time talking about the fact that cerumen is a natural antibiotic , antifungal , waterproof er, and moisturize r of the delicate external auditory canal skin. The use of Q-tips strips away this natural protection and makes the ear canal skin more likely to become itchy, irritated or become infected. There is also the risk of trauma to the tympanic membranes as well. We discussed proper aural hygiene techniques to maintain the health of the external ears. Sensorineu ral hearing loss of bilateral ears 435487221 H90.3 Right Ear:Normal hearing through 6K Hz sloping to a mild SNHL with excellent speech discrimina tion.Type A tympanogra m.Left Ear:Normal hearing through 6K Hz sloping to a mild SNHL with excellent speech discrimina tion.Type A tympanogra m. Audiogram reviewed with patient. Minimal high-frequ ency sensorineu ral hearing loss consistent with presbycusi s. No need for interventi on in this regard. Allergic rhinitis 745131 04 J30.9 Intranasal examinatio n is consistent with low-level chronic allergic rhinitis. Recommend fluticason e nasal spray 2 puffs in both nostrils on a daily basis. She will check with her oncologist to make sure that this will not interfere with her chemothera py treatment. Alternativ esme, patient may use nasal saline to irrigate the nasal cavities. Health Concerns Section Related Observation LastModified by Organization Detai ls LastModified Time None Recorded Concern Status LastModified by Organization Details LastModified Time None Recorded Advance Directives Directive None Recorded Payers Encounter Date Sequence Insurance Name Policy Number Policy De Luna Covered Member ID De Luna Member ID Guarantor Name 12/06/2024 1 [facility] - DOS ON OR AFTER 2023 - ONE CARE (MEDICARE REPLACEMENT/ADV ANTAGE - HMO) Kaycee Mota [id number] Emiliana Pedraza Notes Date Note Type Note Provider Name and Address Organization Details Recorded Time 12/06/2024 text/html 64-year-old fema suresh with history of chronic myelocytic leukemia (currently undergoing oral chemotherapy), hypertension and thrombocytosis who presented to her primary care physician back in May reporting feeling sometimes dizzy and tired though there were no identifiable triggers for feeling spinning and off-balance. Patient sent for comprehensive lab panel to look for hematologic or endocrine causes of dizziness. Patient is currently asymptomatic with regards to dizziness.She comes in today accompanied by her akfxlzrd-vd-eck mainly wanting workup for evaluation of chronically itchy left ear. This has been affecting the left ear for about 7 months now.Patient also complains of intermittent left sided cheek pressure sensation,, nasal obstruction as well as rhinorrhea. Patient reports that she used a nasal spray of unknown name in the past, but not currently. SIMRAN MCALLISTER MD [address] [place] [address], [place], [address], [place] - [facility] [address] [address]14/2025 10:53:52 OBGyn Episode No OBEpisode recorded.
--- OUTSIDE RECORDS SUMMARY | 2025-02-02 17:00 | XMS_ITS | Encounter Summary ---
Author Organization [employer] Address [address] [place] [address] Care Team Providers Care Double Bass Player Name Role Phone Misty Ornelas MD Primary Care Provide r Encounter Details Date Type Department Care Team (Late st Contact Info) Description 01/20/2025 Telephone [facility] [address] [place], [place] [phone] Araceli Clark ANP [address] [place], [place] [phone] Social History Tobacco Use Types Packs/Day Years Used Date Smoking Tobacco: Never Passive Smoke Exposure: Never Smokeless Tobacco: Never Alcohol Use Standard Drinks/Week Comments Never 0 [...] encounter Miscellaneous Notes * Telephone Encounter - Chhaya Melara RN - 01/20/2025 9:53 AM EST Call placed to patient for status check. She was seen in [facility] on 01/17 and treated for an abscess with cefadroxil and doxycycline. Today, patient reports her abscess is much improved. It is no longer itchy. She reports it is less red, and has decreased in size. Advised patient to complete Abx course as prescribed. Advised patient to call with any additional questions or concerns. Patient verbalizesunderstanding and agreement with plan of care at this time. [facility] [place] [id number] Riya ----- Message from Araceli Clark sent at 01/17/2025 2:42 PM EST ----- Please call pt on Thursday for status check - please let me know if not improving and I will extend abx or call pt documented in this encounter Plan of Treatment Upcoming Encounters Date Type Department Care Team (Late st Contact Info) Description 02/17/2025 10:15 AM EDT Procedure Visit [facility] [address] [place] [address] Misty Ornelas MD [address] [place] [address] documented as of this encounter Visit Diagnoses Not on filedocumented in this encounter Additional Health Concerns Assessment Noted Time PHQ-9 Depression Total Score: 0 03/18/20 24 10:02 AM EDT documented as of this encounter Care Teams Double Bass Player Relationship Specialty Start Date End Date Misty Ornelas MD [address] [place] [address] PCP - General Family Medicine 01/19/20 documented as of this encounter
--- OUTSIDE RECORDS SUMMARY | 2025-02-02 17:00 | XMS_ITS | Encounter Summary ---
Author Organization [employer] Address [address] [place] [address] Care Team Providers Care Charge Account Authorizer Name Role Phone Misty Ornelas MD Primary Care Provide r Reason for Visit * Reason Comments Med Refill Encounter Details Date Type Department Care Team (Late st Contact Info) Description 09/13/2024 Refill [facility] [address] [place] [address] [phone] Misty Ornelas MD [address] [place] [address] Vitamin D deficiency Social History Tobacco Use Types Packs/Day Years [...] AM EDT documented as of this encounter Plan of Treatment Upcoming Encounters Date Type Department Care Team (Late st Contact Info) Description 02/17/2025 10:15 AM EDT Procedure Visit [facility] [address] [place] [address] Misty Ornelas MD [address] [place] [address] documented as of this encounter Visit Diagnoses Diagnosis Vitamin D deficiency documented in this encounter Additional Health Concerns Assessment Noted Time PHQ-9 Depression Total Score: 0 03/18/20 24 10:02 AM EDT documented as of this encounter Care Teams Charge Account Authorizer Relationship Specialty Start Date End Date Misty Ornelas MD [address] [place] [phone] PCP - General Family Medicine 01/19/20 documented as of this encounter
--- OUTSIDE RECORDS SUMMARY | 2025-02-02 17:00 | XMS_ITS | Encounter Summary ---
Author Organization [facility] Address [address] [facility] [address] [place] [address] Care Team Providers Care Police Matron Name Role Phone Misty Ornelas MD Primary Care Provide r Reason for Visit * Reason Comments Med Refill Encounter Details Date Type Department Care Team (Late Contact Info) Description 03/28/2023 Refill [facility] [address] [place] [address] [phone] Misty Ornelas MD [address] [place] [address] [phone] Essential hypertension Social History Tobacco Use Types Packs/Day Years Used Date Smoking Tobacco: Never Passive Smoke Exposure: Never Smokeless Tobacco: Never Depression Answer Date Recorded Patient Health Questionnaire-9 Score 0 03/04/2023 Depression Answer Date Recorded Patient Health Questionnaire-2 Score 0 03/04/2023 Comments Unknown Sex and Gender Information Value Date Recorded Sex Assigned at Female 09/22/2022 10:23 AM EDT Legal Sex Female 10:23 AM EDT Gender Identity Female 09/22/2022 10:23 AM EDT Sexual Orientation Don't know 09/22/2022 10 :23 AM EDT COVID-19 Exposure Response Date Recorded In the last 10 days, have yo u been in contact with someone who was confirmed or suspected to have Coronavirus/COVID-19? No / Unsure 03/18/2023 11:23 AM EDT documented as of this encounter Plan of Treatment Upcoming Encounters Date Type Department Care Team ([facility] Contact Info) Description 02/17/2025 10:15 AM EDT Procedure Visit [facility] [address] [place] [address] [phone] Misty Ornelas MD [address] [place] [address] documented as of this encounter Visit Diagnoses Diagnosis Essential hypertension Unspecified essential hypertension documented in this encounter Additional Health Concerns Assessment Noted Time PHQ-9 Depression Total Score: 0 03/04/20 23 9:52 AM EDT documented as of this encounter Care Teams Police Matron Relationship Specialty Start Date End Date Misty Ornelas MD [address] [place] [address] PCP - General Family Medicine 01/19/20 documented as of this encounter
--- OUTSIDE RECORDS SUMMARY | 2025-02-02 17:00 | XMS_ITS | Encounter Summary ---
Author Organization [employer] Address [address] [place] [address] Care Team Providers Care Convention Services Manager Name Role Phone Misty Ornelas MD Primary Care Provide r Reason for Visit * Reason Comments Cyst neck Encounter Details Date Type Department Care Team (Late st Contact Info) Description 01/17/2025 2:00 PM EST Office Visit [facility] [address] [place] [address] [phone] Araceli Clark ANP [address] [place], [place] [phone] Abscess (Primary Dx); Skin pruritus Social History Tobacco Use Types Packs/Day Years [...] AM EDT documented as of this encounter Last Filed Vital Signs Vital Sign Reading [...] oz) 01/17/2025 2:11 P M EST Height - - Body Mass Index 38.07 06/17/2024 9:31 AM EDT documented in this encounter Progress Notes * POOL Ansari - 01/17/2025 2:00 PM EST Images from the original note were not included. Emiliana Pedraza is 64 y.o. patient here today for sick visit. HPI PMH incl chronic myelocytic leukemia, HTN Here today w/ abscess x3d on anterior neck line. No chills/fever. Has been using warm compresses daily since onset. Took abx most recently clindamycin for dental infx. At end of visit also reports that has pain in bilateral feet in AM at heels. Non-smoker Family member here provides Estonian interpretation per patient preference. Review of Systems Constitutional: Negative for chills and fever. HENT: Negative for sore throat. Respiratory: Negative for cough and shortness of breath. Cardiovascular: Negative for chest pain. Gastrointestinal: Negative for constipation and diarrhea. Endocrine: Negative for polydipsia, polyphagia and polyuria. Genitourinary: Negative for dysuria. 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 Physical Exam Vitals reviewed. Constitutional: Appearance: Normal appearance. She is obese. HENT: Head: Normocephalic and atraumatic. Eyes: General: No scleral icterus. Extraocular Movements: Extraocular movements intact. Pupils: Pupils are equal, round, and reactive to light. Cardiovascular: Rate and Rhythm: Normal rate. Skin: General: Skin is warm and dry. Comments: Approx 2 x 2cm erythematous area w/ 1 x 1cm fluid filled tender mass in area above Neurological: Mental Status: She is alert. Diagnoses and all orders for this visit: Abscess Has abscess on anterior neck line as above. Recommend continued warm soaks and MSSA and MRSA coverage as below. Reviewed if worsening redness or pain please let us know. Patient reports it is very itchy will send OTC strength hydrocortisone to use around the area affected. Will ask team to call patient on Thursday for status check. If symptoms not improving will ask to return to clinic for I&D or extend ABX. Diagnoses and all orders for this visit: Abscess - cefadroxil (Duricef) 500 MG capsule; Take 1 capsule (500 mg) by mouth 2 times daily. - doxycycline (Vibra-Tabs) 100 MG tablet; Take 1 tablet (100 mg) by mouth 2 times daily for 5 days.Take with a full glass of water and do not lie down for at least 30 minutes after. Skin pruritus - hydrocortisone 1 % cream; Apply topically if needed (itching) for up to 7 days. Up to 4 times daily. Do not apply to open wounds. documented in this encounter Plan of Treatment Upcoming Encounters Date Type Department Care Team (Late st Contact Info) Description 02/17/2025 10:15 AM EDT Procedure Visit [facility] [address] [place] [address] Misty Ornelas MD [address] [place] [address] documented as of this encounter Visit Diagnoses Diagnosis Abscess- Primary Cellulitis and abscess of unspecified site Skin pruritus documented in this encounter Additional Health Concerns Assessment Noted Time PHQ-9 Depression Total Score: 0 03/18/20 24 10:02 AM EDT documented as of this encounter Care Teams Convention Services Manager Relationship Specialty Start Date End Date Misty Ornelas MD [address] [place] [address] PCP - General Family Medicine 01/19/20 documented as of this encounter
== END 2025-02-02 14:45 | disposition home or self-care (01) ==
LOC: HO.HGI 13:25
PROVIDERS: PCP Internal Medicine; Visit Provider Nurse Practitioner Family
DX: K21.9 Gastro-esophageal reflux disease without esophagitis (principal); K58.9 Irritable bowel syndrome, unspecified; Z86.0101 Personal history of adenomatous and serrated colon polyps; Z12.11 Encounter for screening for malignant neoplasm of colon
CPT/HCPCS: 99214; G2211

== ENCOUNTER → 2025-02-02 13:24 | Outpatient (BNVA) | payer OTHER, SELFPAY | PROVIDERS: PCP Internal Medicine; Visit Provider Nurse Practitioner Family | DX: Z01.818 Encounter for other preprocedural examination (principal); K21.9 Gastro-esophageal reflux disease without esophagitis; K58.1 Irritable bowel syndrome with constipation; R10.13 Epigastric pain; R10.31 Right lower quadrant pain; A04.8 Other specified bacterial intestinal infections; R14.0 Abdominal distension (gaseous); D12.6 Benign neoplasm of colon, unspecified | CPT/HCPCS: 99212 ==

== ENCOUNTER 2025-02-17 18:00 | Outpatient (REF) | payer OTHER, SELFPAY ==
[2025-02-22 13:13] LABS: HPV Genotype 16 Negative (Negative); HPV Genotype 18 Negative (Negative); HPV High Risk Negative (Negative)
== END 2025-02-17 18:01 | disposition home or self-care (01) ==
LOC: HO.HHCLNP 18:00
PROVIDERS: Visit Provider Internal Medicine
DX: Z12.4 Encounter for screening for malignant neoplasm of cervix (principal)
CPT/HCPCS: 87626; 88175

== ENCOUNTER 2025-10-30 15:46 | Outpatient (REF) | payer OTHER, SELFPAY ==
--- NOTE | ~2025-10-30 | MM_ITS ---
EXAMINATION: MM SCREENING DIGITAL BREAST TOMOSYNTHESIS, BILATERAL CLINICAL INFORMATION: Screening. Asymptomatic. COMPARISON: Comparison made to multiple prior, most recent October 24, 2024, and most remote November 25, 2017. TECHNIQUE: Digital breast tomosynthesis is performed in mediolateral oblique and craniocaudal views along with computer-aided detection (CAD). Synthesized 2D images are generated from the tomosynthesis. FINDINGS: BREAST COMPOSITION: There are scattered areas of fibroglandular density. BILATERAL BREASTS: No significant masses, suspicious calcifications or other abnormalities are seen in either breast. MM/MM tomosynthesis screening BI IMPRESSION: BILATERAL BREASTS: Negative, no mammographic evidence of malignancy. Normal interval follow-up is recommended in 12 months. ASSESSMENT: BI-RADS: Category 1: Negative RECOMMENDATION: Routine annual mammography screening. FOLLOW-UP: 1 year F/U This examination should not preclude the clinical evaluation of a suspicious palpable abnormality. This patient's information was entered into a reminder system with a target due date for their next mammogram. Electronically signed by: Elvira Smith MD 10/30/2025 08:50 PM [facility]
--- OUTSIDE RECORDS SUMMARY | 2025-10-31 01:21 | XMS_ITS | Clinical Summary ---
Author Organization [employer] Address [address] [facility] [address] [place] [address] Care Team Providers Care Travel Specialist Name Role Phone Misty Ornelas MD Primary Care Provide r Allergies Active Allergy Reactions Criticality Noted Date Comments Pollen Extract Runny nose High 05/05/2023 Other Reaction(s): Watery Eye Medications dasatinib (Sprycel) 100 MG chemo tablet Take 100 mg by mouth Once per day. 12/10/19 24 Active chlorhexidine (Peridex) 0.12 % solution Swish 15 mL morning and night for 1 minute. Spit, do not swallow. Do not eat or drink for 30 minutes following use. 473 mL 07/11/20 24 Active cefadroxil (Duricef) 500 MG capsuleIndicatio ns:Abscess Take 1 capsule (500 mg) by mouth 2 times daily. 10 capsule 01/17/20 25 Active carvedilol (Coreg) 12.5 MG tabletIndication s:Essential hypertension TAKE 1 TABLET (12.5 MG) BY MOUTH WITH BREAKFAST AND EVENING MEAL 180 tablet 3 04/03/20 25 Active chlorthalidone (Hygroton) 50 MG tablet TAKE 1 TABLET BY MOUTH EVERY DAY IN THE MORNING 90 tablet 1 04/07/20 25 Active losartan (Cozaar) 50 MG tabletIndication s:Essential hypertension TAKE 1 TABLET BY MOUTH TWICE A DAY 180 tablet 1 04/07/20 25 Active cholecalciferol (D-1000 Extra Strength) 25 MCG (1000 UT) tabletIndication s:Vitamin D deficiency TAKE 1 TABLET BY MOUTH EVERY DAY 90 tablet 10/09/20 25 Active omeprazole (PriLOSEC) [address] capsuleIndicatio ns:Blood in stool,Generalize d abdominal pain TAKE 1 CAPSULE BY MOUTH DAILY BEFORE BREAKFAST.. DO NOT CRUSH OR CHEW 90 capsule 1 10/09/20 Active omeprazole (PriLOSEC) [address] Sandoval ns:Blood in stool,Generalize d abdominal pain TAKE 1 CAPSULE BY MOUTH DAILY BEFORE BREAKFAST.. DO NOT CRUSH OR CHEW 90 capsule 1 04/03/20 25 025 Discontinued cholecalciferol (D-1000 Extra Strength) 25 MCG (1000 UT) tabletIndication s:Vitamin D deficiency TAKE 1 TABLET BY MOUTH EVERY DAY 90 tablet 07/07/20 025 Discontinued Active Problems Problem Noted Date Diagnosed Date Encounter for Papanicolaou smear of cervix 02/17 Assessment & Plan (02/17/2025 1:36 PM EDT): Pap smear and pelvic exam done today, patient will be contacted with results Breast examination done today, it was normal no breast abnormalities no lymph nodes were noticed Encounter for gynecological examination 02/18/20 Dental calculus 07/11/2024 Symptomatic apical periodontitis 07/11/2024 [...] I will refer her again to hematology [facility] care maintenance 03/04/2023 Assessment & Plan (03/04/2023 [...] Encounters Date Type Department Care Team Description 10/30/2025 Orders Only [facility] MEDICINE [address] [place] [address] Misty Ornelas MD 10/07/2025 Refill [facility] [address] [place] [address] Misty Ornelas MD Vitamin D deficiency; Blood in stool; Generalized abdominal pain from Last 3 Months Immunizations Immunization Administration Dates Next Due Influenza injectable quadrivalent [...] Patient Health Questionnaire-2 Score 0 03/18/2024 Comments No Sex and Gender Information Value Date Recorded Sex Assigned at Female 09/22/2022 10:23 AM EDT Legal Sex Female 10:23 AM EDT Gender Identity Female 09/22/2022 10:23 AM EDT Sexual Orientation Don't know 09/22/2022 10 :23 AM EDT Last Filed Vital Signs Vital Sign Reading Time Taken Comments Blood Pressure 134/78 02/17/2025 10:36 AM EDT Pulse 73 02/17/2025 10:36 AM EDT Temperature 36.7 C (98 F) 02/17/2025 10:36 AM EDT Respiratory Rate 21 02/17/2025 10:36 AM EDT Oxygen Saturation 95% 01/17/2025 2:11 PM EST Inhaled Oxygen Concentration - - Weight 105 kg (231 lb 6 oz) 02/17/2025 10:36 AM EDT Height 165.1 cm (5' 5 ) 02/17/2025 10:36 AM EDT Body Mass Index 38.5 02/17/2025 10:36 AM EDT Plan of Treatment Health Maintenance Due Date Last Done Comments CT Colonography 1960 Dental Oral Exam 1960 Dental Prophylaxis 1960 Dental X-Ray: Full Mouth 1960 FIT DNA/Cologuard 1960 FIT 1960 FOBT 1960 Sigmoidoscopy 1960 Alcohol/Substance Use Screening 1972 Hepatitis A Vaccines (1 of 2 - Risk 2-dose series) 1979 Pneumococcal Vaccine: 50+ Years (1 of 2 - PCV) 1979 Zoster Vaccines (1 of 2) 1979 RSV Patients and Patients Aged 60 years or older (1 - Risk 50-74 years 1-dose series) 2010 Hepatitis B Vaccines (1 of 3 - Risk 3-dose series) 2020 SDOH Screening 01/06/2025 01/06/2024 Depression Screening 03/18/2025 03/18/2024, 03/18/20 24 Colonoscopy 03/28/2025 03/28/2024 Colorectal Cancer Screening 03/28/2025 Dental X-Ray: Bitewings 07/12/2025 07/11/2024 COVID-19 Vaccine ( - season) 2025 10/28/2021, 03/04/2021 Influenza Vaccine (#1) 2025 , 09/21/2019, 10/13/2017 Tobacco Screening 02/17/2026 02/17/2025 Mammogram 10/30/2026 10/30/2025, 1212/2023, 10/07/2023, Additional history exists DTaP/Tdap/Td Vaccines (2 - Td or Tdap) 10/13/2027 10/13/2017 Lipid Panel 06/17/2029 06/17/2024, 0402/2023, 09/23/2021, Additional history exists Cervical Cancer Screening 02/17/2030 HPV/Cotest 02/17/2030 02/17/2025, 02/02/2020 Pap Smear 02/17/2030 02/17/2025 Hepatitis C Screening Completed 02/02/2020 HIB Vaccines Aged Out No longer eligi ble based on patient's age to complete this topic HPV Vaccines Aged Out No longer eligi ble based on patient's age to complete this topic IPV Vaccines Aged Out No longer eligi ble based on patient's age to complete this topic Meningococcal B Vaccine Aged Out No l onger eligible based on patient's age to complete [...] Comments BI MAMMOGRAM SCREENING TOMOSYNTHESIS BILATERAL Routine 10/30/2025 4:04 PM EST HPV DNA, LOW/HIGH RISK Routine 02/17/2025 12:00 AM EDT PAP SMEAR Routine 02/17/2025 12:00 AM EDT Encounter for Papanicolaou smear of cervix BITEWING - SINGLE RADIOGRAPHIC IMAGE Routine 07/11/2024 1:00 PM EDT LIPID PANEL WITH REFLEX TO DIRECT LDL Routine 06/17/2024 10:25 AM EDT Dizziness HM COLONOSCOPY Routine 03/28/2024 ZZZ HISTORICAL HEPATITIS C ANTIBODY RFLX Routine 02/02/2020 12:30 PM EDT from Last 3 Months or Most Recently Relevant to Health Maintenance Results * BI Mammogram Screening Tomosynthesis Bilateral (10/30/2025 4:04 PM EST) Anatomical Region Laterality Modality Breast Bilateral Mammography 10/30/2025 4:04 PM EST Narrative 10/30/2025 8:53 PM EST [facility] [address] [place] [address] Mammography Report Signed Patient: Emiliana Pedraza MR#: [id number] : 1960 Acct:[id number] Age/Sex: 65 / F ADM Date: 10/30/25 Loc: HO.MAMMO Attending Dr: Misty Tubbs MD Ordering Physician: Misty Ornelas MD Results: 1Negative Date of Service: 10/30/25 Follow Up: 1 Year From Orig inal Mammogram Procedure(s): MM tomosynthesis screening BI Accession Number(s): [id number] cc: Misty Ornelas MD Reason For Exam: SCREENING EXAMINATION: MM SCREENING DIGITAL BREAST TOMOSYNTHESIS, BILATERAL CLINICAL INFORMATION: Screening. Asymptomatic. COMPARISON: Comparison made to multiple prior, most recent October 24, 2024, and most remote November 25, 2017. TECHNIQUE: Digital breast tomosynthesis is performed in mediolateral oblique and craniocaudal views along with computer-aided detection (CAD). Synthesized 2D images are generated from the tomosynthesis. FINDINGS: BREAST COMPOSITION: There are scattered areas of fibroglandular density. BILATERAL BREASTS: No significant masses, suspicious calcifications or other abnormalities are seen in either breast. MM/MM tomosynthesis screening BI IMPRESSION: BILATERAL BREASTS: Negative, no mammographic evidence of malignancy. Normal interval follow-up is recommended in 12 months. ASSESSMENT: BI-RADS: Category 1: Negative RECOMMENDATION: Routine annual mammography screening. FOLLOW-UP: 1 year F/U This examination should not preclude the clinical evaluation of a suspicious palpable abnormality. This patient's information was entered into a reminder system with a target due date for their next mammogram. Electronically signed by: Elvira Smith MD 10/30/2025 08:50 PM EST Dictated By: Elvira Smith MD Signed By: <Electronically signed by Elvira Smith MD in OV> 10/30/252049 DD/ 03 TD/TT: 10/30/25 160 Filament Maker: Procedure Note Donotuseinterpreter, Image - 10/30/2025 [facility] [address] [place] [address] Mammography Report Signed Patient: Estrella Pedraza#: [id number] : 1960Acct:[id number] Age/Sex: 65 / FADM Date: 10/30/25 Loc: HO.MAMMO Attending Dr: Misty Tubbs MD Ordering Physician: Misty Ornelas MDResults: 1Negative Date of Service: 10/30/25Follow Up: 1 Year From Orig inal Mammogram Procedure(s): MM tomosynthesis screening BI Accession Number(s): [id number] cc: Misty Ornelas MD Reason For Exam: SCREENING EXAMINATION: MM SCREENING DIGITAL BREAST TOMOSYNTHESIS, BILATERAL CLINICAL INFORMATION: Screening. Asymptomatic. COMPARISON: Comparison made to multiple prior, most recent October 24, 2024, and most remote November 25, 2017. TECHNIQUE: Digital breast tomosynthesis is performed in mediolateral oblique and craniocaudal views along with computer-aided detection (CAD). Synthesized 2D images are generated from the tomosynthesis. FINDINGS: BREAST COMPOSITION: There are scattered areas of fibroglandular density. BILATERAL BREASTS: No significant masses, suspicious calcifications or other abnormalities are seen in either breast. MM/MM tomosynthesis screening BI IMPRESSION: BILATERAL BREASTS: Negative, no mammographic evidence of malignancy. Normal interval follow-up is recommended in 12 months. ASSESSMENT: BI-RADS: Category 1: Negative RECOMMENDATION: Routine annual mammography screening. FOLLOW-UP: 1 year F/U This examination should not preclude the clinical evaluation of a suspicious palpable abnormality. This patient's information was entered into a reminder system with a target due date for their next mammogram. Electronically signed by: Elvira Smith MD 10/30/2025 08:50 PM [facility] Dictated By: Elvira Smith MD Signed By: <Electronically signed by Elvira Smith MD in OV> 10/30/252049 DD/ 1604 TD/TT: 10/30/25 1609 Filament Maker: Misty Tubbs MD IMG BI PROCEDURES Graham olayinka Result - Final * HPV DNA, Low/High Risk (02/17/2025 12:00 AM EDT) HPV High Risk Negative Negative [facility] HPV Genotype 16 Negative Negative [facility] HPV Genotype 18 Negative Negative [facility] Comment:HPV testing performe d at [facility] (CLIA#[id number]), [address] [place] [address].Testing for HPV was performed using the Trigger.[employer] PORTIA 6800system. The presence of HPV in the female genital tract isassociated with a number of diseases, including cervicalcarcinoma. The HPV DNA high risk pool tests for HPV 31, 33,35, 39, 45, 51, 52, 56, 58, 59, 66 and 68. The testing forHPV 16 and 18 genotypes has also been performed. A positiveresult indicates detection of nucleic acid sequences fromone or more subtypes, whereas a negative result indicatessuch sequences were not detected. 02/17/2025 02/20/2025 7:0 0 AM EDT us Misty Tubbs MD LAB BLOOD ORDERABLES Final Result [facility] [address] [place] [phone] * Pap Smear (02/17/2025 12:00 AM EDT) Swab 02/17/2025 02/20/2025 7:0 0 AM EDT Narrative [facility] - 02/22/2025 9:36 AM EDT ----- ------- Name: Emiliana Pedraza Age/Sex: 64/F : 1960 Unit#: [id number] Attend Dr: Misty Ornelas MD Re02/17/25 Status: DEP REF Location: HO.HHCLNP Disch: ----- ------- SPEC : [id number] RECD: 02/20/25 STATUS: YOLANDA PETIT NUM: [id number] LAI: 02/17/25-[address] [facility] [address]: Misty Orenlas MD ENTERED: 02/20/25 SP TYPE: Pap Smr OT DR: ORDERED: Pap Smear Interpretation Satisfactory for evaluation. Negative for intraepithelial lesion or malignancy. Atrophic. HPV High Risk: Negative HPV Genotyping 16: Negative HPV Genotyping 18: Negative Clinical Information LMP:Unknown date Previous PAP test:Unknown date/findings Material Received ThinPrep-Cervical ----- ------- Signed (signature on file) ROSA ELENA Sheridan (ASCP) 02/22/25 0936 ----- ------- END OF REPORT Misty Tubbs MD LAB CYTOLOGY ORDERABL ES Final Result Performing Organization Address [facility] de Phone Number [facility] [address] [place] [phone] * (ABNORMAL) Lipid Panel with Reflex to Direct LDL (06/17/2024 10:25 AM EDT) Triglycerides 158(H) <150 mg/dL [facility] Comment:Desirable Triglyceri de: less than 150 mg/dLBorderline High Triglyceride 150-199 mg/dLHigh Triglyceride: 200-499 mg/dLVery High Triglyceride: greater than or equal to 5OO mg/dL Cholesterol 182 <200 mg/dL [facility] Comment:Desirable Cholestero l: less than 200 mg/dLBorderline High Cholesterol: 200-239 mg/dLHigh Cholesterol: greater than 239 mg/dL LDL Cholesterol Calculated 102(H) <100 mg/dL [facility] Comment:Desirable LDL: less than 100 mg/dLNear Optimal/Above Optimal LDL: 110- 129 mg/dLBorderline High LDL: 130-159 mg/dLHigh LDL: 160-189 mg/dLVery High LDL: greater than or equal to 190 mg/dL HDL Cholesterol 49 >40 mg/dL [facility] Comment:Desirable HDL: great er than 40 mg/dL Note: This HDL assay may give artificially low results in patients with liver disease. Blood 06/17/2024 10:2 5 AM EDT 06/17/2024 12:50 PM EDT Misty Tubbs MD LAB BLOOD ORDERABLES Final Result Performing Organization Address [facility] Co de Phone Number [facility] [address] [place] [phone] * Colonoscopy (03/28/2024) Colonoscopy Normal Normal Narrative Miryam Bowling - 03/28/2024 Repeat Colonoscopy in 1-2 years if polyps are adenomatous and 10 year if polyps are hyperplastic. us Historical Provider HEALTH MAINTENANCE Final Result * HEPATITIS C ANTIBODY RFLX (02/02/2020 12:30 PM EDT) HEPATITIS C ANTIBODY NONREACTIVE NONREACTIVE [facility] Comment: Antibodies to HCV not detected; does not exclude early acute HCV infection. 02/02/2020 12:3 0 PM EDT Misty Tubbs MD HISTORICAL/NON ORDERA BLE LABS Final Result [facility] [address] from Last 3 Months or Most Recently Relevant to Health Maintenance Insurance [facility] < [address] [id number] [facility] Care Teams Travel Specialist Relationship Specialty Start Date End Date Misty Ornelas MD [address] [place] [phone] PCP - General Family Medicine 01/19/20
--- OUTSIDE RECORDS SUMMARY | 2025-10-31 01:21 | XMS_ITS | Encounter Summary ---
Author Organization [employer] Address [address] [facility] [address] [place] [address] Care Team Providers Care Aircraft Charter Dispatcher Name Role Phone Misty Ornelas MD Primary Care Provide r Reason for Visit * Reason Comments Med Refill Encounter Details Date Type Department Care Team ([facility] st Contact Info) Description 09/13/[address] [facility] [address] [place] [address] [phone] Misty Ornelas MD [address] [place] [address] Vitamin D deficiency Social History Tobacco Use [...] as of this encounter Plan of Treatment Not on file documented as of this encounter Visit Diagnoses Diagnosis Vitamin D deficiency documented in this encounter Additional Health Concerns Assessment Noted Time PHQ-9 Depression Total Score: 0 03/18/20 24 10:02 AM EDT documented as of this encounter Care Teams Aircraft Charter Dispatcher Relationship Specialty Start Date End Date Misty Ornelas MD [address] [place] [phone] PCP - General Family Medicine 01/19/20 documented as of this encounter
--- OUTSIDE RECORDS SUMMARY | 2025-10-31 01:21 | XMS_ITS | Encounter Summary ---
Author Organization [employer] Address [address] [place] [address] Care Team Providers Care Research And Development Scientist Name Role Phone Misty Ornelas MD Primary Care Provide r Reason for Visit * Reason Onset Date Comments Appointment Request 12/15/2023 Encounter Details Date Type Department Care Team (Late st Contact Info) Description 12/15/2023 Telephone [facility] MEDICINE [address] [place], [place] [phone] Misty Ornelas MD [address] [place], [place] [phone] Appointment Request Social History Tobacco Use Types [...] add on her chart. Please contact Jason [phone]. documented in this encounter Plan of Treatment Not on file documented as of this encounter Visit Diagnoses Not on filedocumented in this encounter Additional Health Concerns Assessment Noted Time PHQ-9 Depression Total Score: 0 03/04/20 23 9:52 AM EDT documented as of this encounter Care Teams Research And Development Scientist Relationship Specialty Start Date End Date Misty Ornelas MD [address] [place] [address] PCP - General Family Medicine 01/19/20 documented as of this encounter
--- OUTSIDE RECORDS SUMMARY | 2025-10-31 01:21 | XMS_ITS | Encounter Summary ---
Author Organization [employer] Address [address] [facility] [address] [place] [address] Care Team Providers Care Php Mysql Web Developer Name Role Phone Misty Ornelas MD Primary Care Provide r Reason for Visit * Reason Comments Med Refill Encounter Details Date Type Department Care Team ([facility] st Contact Info) Description 03/28/2023 Refill [facility] MEDICINE [address] [place], [place] [phone] Misty Ornelas MD [address] [place], [place] [phone] Essential hypertension Social History Tobacco Use Types [...] documented as of this encounter Care Teams Php Mysql Web Developer Relationship Specialty Start Date End Date Misty Ornelas MD [address] [place] [address] PCP - General Family Medicine 01/19/20 documented as of this encounter
--- OUTSIDE RECORDS SUMMARY | 2025-10-31 01:21 | XMS_ITS | Encounter Summary ---
Author Organization [employer] Address [address] [facility] [facility] [address] [place] [address] Care Team Providers Care Ruffling Hemmer Automatic Name Role Phone Misty Ornelas MD Primary Care Provide r Encounter Details Date Type Department Care Team ([facility] st Contact Info) Description 10/30/2025 Orders Only [facility] MEDICINE [address] [place], [place] [phone] Misty Ornelas MD [address] [place], [place] [phone] Social History Tobacco Use Types Packs/Day Years [...] on file documented as of this encounter Procedures Procedure Name Priority Date/Time Associated Diagnosis Comments BI MAMMOGRAM SCREENING TOMOSYNTHESIS BILATERAL Routine 10/30/2025 4:04 PM EST documented in this encounter Results * BI Mammogram Screening Tomosynthesis Bilateral (10/30/2025 4:04 PM EST) Anatomical Region Laterality Modality Breast Bilateral Mammography 10/30/2025 4:04 PM EST Narrative 10/30/2025 8:53 PM EST [facility] [address] [place] [address] Mammography Report Signed Patient: Emiliana Pedraza MR#: [id number] : 1960 Acct:[id number] Age/Sex: 65 / F ADM Date: 10/30/25 Loc: HO.MAMMO Attending Dr: Misty Tubbs MD Ordering Physician: Misty Ornelas MD Results: 1Negative Date of Service: 10/30/25 Follow Up: 1 Year From Orig inal Mammogram Procedure(s): MM tomosynthesis screening BI Accession Number(s): [id number] cc: Misty Ornelas MD Reason For Exam: [...] Elvira Smith MD in OV> 10/30/252049 DD/ 160 TD/TT: 10/30/25 1609 Shrink Pit Supervisor: Procedure Note Donotuseinterpreter, Image - 10/30/2025 [facility] [address] [place] [address] Mammography Report Signed Patient: Estrella Pedraza#: [id number] : 1960Acct:[id number] Age/Sex: 65 / FADM Date: 10/30/25 Loc: YOLYO Attending Dr: Misty Tubbs MD Ordering Physician: Misty Ornelas MDResults: 1Negative Date of Service: 10/30/25Follow Up: 1 Year From Orig inal Mammogram Procedure(s): MM tomosynthesis screening BI Accession Number(s): [id number] cc: Misty Ornelas MD Reason For Exam: [...] by: Elvira Smith MD 10/30/2025 08:50 PM [facility] Dictated By: Elvira Smith MD Signed By: <Electronically signed by Elvira Smith MD in OV> 10/30/252049 DD/ 1604 TD/TT: 10/30/25 1609 Shrink Pit Supervisor: Misty Tubbs MD IMG BI PROCEDURES Graham olayinka Result - Final documented in this encounter Visit Diagnoses Not on filedocumented in this encounter Additional Health Concerns Assessment Noted Time PHQ-9 Depression Total Score: 0 03/18/20 24 10:02 AM EDT documented as of this encounter Care Teams Ruffling [place] Automatic Relationship Specialty Start Date End Date Misty Ornelas MD [address] [place] [address] PCP - General Family Medicine 01/19/20 documented as of this encounter
== END 2025-10-30 15:47 | disposition home or self-care (01) ==
LOC: HO.MAMMO 15:46
PROVIDERS: Visit Provider Internal Medicine
DX: Z12.31 Encounter for screening mammogram for malignant neoplasm of breast (principal)
CPT/HCPCS: 77063; 77067

== ENCOUNTER → 2025-10-30 16:15 | Outpatient (BNV) | payer OTHER, SELFPAY | PROVIDERS: Visit Provider Radiology Body Imaging | DX: Z12.31 Encounter for screening mammogram for malignant neoplasm of breast (principal) | CPT/HCPCS: 77063; 77067 ==